=== PATIENT | female | born 1955 | race Caucasian/White ===

== ENCOUNTER → 2017-12-18 | Outpatient (CLI) | payer MEDICARE ==
[~2017-12-18] MED LIST: DENOSUMAB 60 MG/ML 1 ML SYRINGE SQ NR
[2017-12-18 14:48] VITALS: BP 125/87; PULSE 92; RESP 16; TEMP 98.9
== END | disposition home or self-care (01) ==
LOC: PROCWHC3 14:33
PROVIDERS: ATTEND Family Medicine
DX: M81.0 Age-related osteoporosis without current pathological fracture (principal)
CPT/HCPCS: 96372; J0897

== ENCOUNTER → 2019-06-14 | Outpatient (CLI) | payer MEDICARE, OTHER ==
--- NOTE | 2019-06-14 10:44 | CT ---
EXAMINATION TYPE: CT sinus wo con DATE OF EXAM: 06/14/2019 COMPARISON: None HISTORY: Chronic sinusitis. CT DLP: [address] of the paranasal sinuses was performed in the axial and coronal planes. Bone and soft tissue settings are submitted. The paranasal sinuses demonstrate normal aeration and development. The paranasal sinuses are free of mucosal thickening or air fluid level. The osteal meatal units are patent bilaterally. Nasal septum is deviated from right to left. No bony destructive changes are seen within the field of view. IMPRESSION: Nasal septal deviation. Otherwise unremarkable study.
== END ==
LOC: RADCTMAIN 10:15
PROVIDERS: ATTEND Family Medicine
DX: J34.2 Deviated nasal septum (principal)
CPT/HCPCS: 70486

== ENCOUNTER 2020-11-06 10:44 | Inpatient (IN) | payer MEDICARE, OTHER ==
[2020-11-06] MEDS ORDERED: PANTOPRAZOLE 40 MG/10 ML VIAL IVP STA (11:19)
[2020-11-06] MEDS ORDERED: SODIUM CHLORIDE 0.9% 1,000 ML IV STA (11:19)
--- NOTE | 2020-11-06 11:22 | ED ---
General Adult HPI - General Chief complaint: GI Bleed Stated complaint: GI bleed Time Seen by Provider: 11/06/20 11:03 Source: patient, RN notes reviewed Mode of arrival: ambulatory Limitations: no limitations - History of Present Illness Initial comments: Patient is a pleasant 65-year-old female presenting to the emergency Department with complaints of rectal bleeding. Onset of symptoms was a couple of days ago. Patient has had more than 6 or 7 episodes. Occasionally only blood. Occasionally blood mixed with stool. Patient is having some lower abdominal cramping/discomfort that is waxing and waning and severe at times. Discomfort is mild at this time. No nausea vomiting. Patient does not take blood thinners. No history of similar symptoms previously. - Related Data Home Medications Medication Instructions Recorded Confirmed LORazepam [Ativan] 1 mg PO Q8H PRN 05/16/14 11/06/20 Celecoxib [CeleBREX] 200 mg PO DAILY 11/06/20 11/06/20 Escitalopram [Lexapro] 20 mg PO DAILY 11/06/20 11/06/20 Phentermine HCl [Adipex-P] 37.5 mg PO DAILY 11/06/20 11/06/20 traZODone HCL 50 mg PO HS 11/06/20 11/06/20 Allergies Allergy/AdvReac Type Severity Reaction Status Date / Time No Known Allergies Allergy Verified 11/06/20 12:35 Review of Systems ROS Statement: Those systems with pertinent positive or pertinent negative responses have been documented in the HPI. ROS Other: All systems not noted in ROS Statement are negative. Constitutional: Denies: fever Eyes: Denies: eye pain ENT: Denies: ear pain Respiratory: Denies: cough Cardiovascular: Denies: chest pain Endocrine: Denies: fatigue Gastrointestinal: Reports: abdominal pain, hematochezia. Denies: nausea, vomiting Genitourinary: Denies: dysuria Musculoskeletal: Denies: back pain Skin: Denies: rash Neurological: Denies: weakness Past Medical History Additional Past Medical History / Comment(s): chronic neck and back pain History of Any Multi-Drug Resistant Organisms: None Reported Past Surgical History: Section, Hysterectomy Additional Past Surgical History / Comment(s): neck surgeryx2 , L foot, L leg thrombectomy Past Psychological History: Anxiety, Depression Smoking Status: Never smoker Past Alcohol Use History: None Reported Past Drug Use History: None Reported General Exam Limitations: no limitations General appearance: alert, in no apparent distress Head exam: Present: normocephalic Eye exam: Present: normal appearance Neck exam: Present: normal inspection Respiratory exam: Present: normal lung sounds bilaterally Cardiovascular Exam: Present: regular rate, normal rhythm GI/Abdominal exam: Present: soft, tenderness (Moderate tenderness of lower abdomen and epigastric and left upper quadrant), normal bowel sounds. Absent: distended, guarding, rebound, rigid, pulsatile mass Rectal exam: Present: normal inspection. Absent: hemorrhoids Extremities exam: Present: normal inspection Neurological exam: Present: alert Psychiatric exam: Present: normal affect, normal mood Skin exam: Present: normal color Course Vital Signs 11/06/20 11/06/20 10:49 13:32 Temperature 98.1 F Pulse Rate 87 71 Respiratory 16 18 Rate Blood Pressure 141/82 119/71 O2 Sat by Pulse 97 97 Oximetry EKG Findings - EKG Comments: EKG Findings:: Normal sinus rhythm with rate of 79. MN 160. QRS 106. QT 370. QTc 424 per left axis. LVH. Nonspecific T waves. Medical Decision Making - Medical Decision Making Patient reevaluated and updated. Case was discussed with Dr. Vaca, who will admit covering for Dr. Umana. - Lab Data Result diagrams: 11/06/20 11:51 11/06/20 11:51 Lab Results 11/06/20 11/06/20 11/06/20 Range/Units 11:51 11:51 11:51 WBC 15.3 H (3.8-10.6) k/uL RBC 5.13 (3.80-5.40) m/uL Hgb 15.1 (11.4-16.0) gm/dL Hct 44.3 (34.0-46.0) % MCV 86.4 (80.0-100.0) fL MCH 29.5 (25.0-35.0) pg MCHC 34.1 (31.0-37.0) g/dL RDW 13.2 (11.5-15.5) % Plt Count 189 (150-450) k/uL MPV 8.0 Neutrophils % 83 % Lymphocytes % 9 % Monocytes % 6 % Eosinophils % 1 % Basophils % 0 % Neutrophils # 12.7 H (1.3-7.7) k/uL Lymphocytes # 1.4 (1.0-4.8) k/uL Monocytes # 0.9 (0-1.0) k/uL Eosinophils # 0.1 (0-0.7) k/uL Basophils # 0.1 (0-0.2) k/uL PT 10.0 (9.0-12.0) sec INR 0.9 (<1.2) APTT 22.2 (22.0-30.0) sec Sodium (137-145) mmol/L Potassium (3.5-5.1) mmol/L Chloride (98-107) mmol/L Carbon Dioxide (22-30) mmol/L Anion Gap mmol/L BUN (7-17) mg/dL Creatinine (0.52-1.04) mg/dL Est GFR (CKD-EPI)AfAm (>60 ml/min/1.73 sqM) Est GFR (CKD-EPI)NonAf (>60 ml/min/1.73 sqM) Glucose (74-99) mg/dL Calcium (8.4-10.2) mg/dL Total Bilirubin (0.2-1.3) mg/dL AST (14-36) U/L ALT (4-34) U/L Alkaline Phosphatase (38-126) U/L Total Protein (6.3-8.2) g/dL Albumin (3.5-5.0) g/dL Stool Occult Blood Positive H (Negative) 11/06/20 Range/Units 11:51 WBC (3.8-10.6) k/uL RBC (3.80-5.40) m/uL Hgb (11.4-16.0) gm/dL Hct (34.0-46.0) % MCV (80.0-100.0) fL MCH (25.0-35.0) pg MCHC (31.0-37.0) g/dL RDW (11.5-15.5) % Plt Count (150-450) k/uL MPV Neutrophils % % Lymphocytes % % Monocytes % % Eosinophils % % Basophils % % Neutrophils # (1.3-7.7) k/uL Lymphocytes # (1.0-4.8) k/uL Monocytes # (0-1.0) k/uL Eosinophils # (0-0.7) k/uL Basophils # (0-0.2) k/uL PT (9.0-12.0) sec INR (<1.2) APTT (22.0-30.0) sec Sodium 138 (137-145) mmol/L Potassium 3.6 (3.5-5.1) mmol/L Chloride 104 (98-107) mmol/L Carbon Dioxide 26 (22-30) mmol/L Anion Gap 8 mmol/L BUN 17 (7-17) mg/dL Creatinine 0.77 (0.52-1.04) mg/dL Est GFR (CKD-EPI)AfAm >90 (>60 ml/min/1.73 sqM) Est GFR (CKD-EPI)NonAf 80 (>60 ml/min/1.73 sqM) Glucose 125 H (74-99) mg/dL Calcium 9.2 (8.4-10.2) mg/dL Total Bilirubin 0.9 (0.2-1.3) mg/dL AST 22 (14-36) U/L ALT 20 (4-34) U/L Alkaline Phosphatase 91 (38-126) U/L Total Protein 6.4 (6.3-8.2) g/dL Albumin 3.7 (3.5-5.0) g/dL Stool Occult Blood (Negative) - Radiology Data Radiology results: report reviewed (Computed tomography scan concerning for colitis) Disposition Clinical Impression: Lower gastrointestinal hemorrhage, Acute colitis Disposition: ADMITTED IP TO THIS [facility] Is patient prescribed a controlled substance at d/c from ED?: No Referrals: Murali Umana MD [Primary Care Provider] - 1-2 days Decision Time: 14:17
[2020-11-06 12:01] LABS: Basophils # (A) 0.1 k/uL (0-0.2); Basophils % (A) 0 %; Eosinophils # (A) 0.1 k/uL (0-0.7); Eosinophils % (A) 1 %; HCT 44.3 % (34.0-46.0); HGB 15.1 gm/dL (11.4-16.0); Lymphocytes # (A) 1.4 k/uL (1.0-4.8); Lymphocytes % (A) 9 %; MCH 29.5 pg (25.0-35.0); MCHC 34.1 g/dL (31.0-37.0); MCV 86.4 fL (80.0-100.0); Monocytes # (A) 0.9 k/uL (0-1.0); Monocytes % (A) 6 %; Neutrophils # (A) 12.7 k/uL (1.3-7.7); Neutrophils % (A) 83 %; Platelet Count 189 k/uL (150-450); RBC 5.13 m/uL (3.80-5.40); RDW 13.2 % (11.5-15.5); WBC 15.3 k/uL (3.8-10.6)
[2020-11-06 12:14] LABS: ALT 20 U/L (4-34); AST 22 U/L (14-36); African American GFR (CKD) >90 (>60 ml/min/1.73 sqM); Albumin 3.7 g/dL (3.5-5.0); Alkaline Phosphatase 91 U/L (38-126); Anion Gap 8 mmol/L; Blood Urea Nitrogen 17 mg/dL (7-17); Calcium 9.2 mg/dL (8.4-10.2); Carbon Dioxide 26 mmol/L (22-30); Chloride 104 mmol/L (98-107); Glucose 125 mg/dL (74-99); Non-African American GFR(CKD) 80 (>60 ml/min/1.73 sqM); Potassium 3.6 mmol/L (3.5-5.1); Sodium 138 mmol/L (137-145); Total Bilirubin 0.9 mg/dL (0.2-1.3); Total Protein 6.4 g/dL (6.3-8.2)
[2020-11-06 12:36] LABS: INR 0.9 (<1.2); Partial Thromboplastin Time 22.2 sec (22.0-30.0)
--- NOTE | 2020-11-06 13:11 | CT ---
EXAMINATION TYPE: CT abdomen pelvis w con DATE OF EXAM: 11/06/2020 COMPARISON: 08/30/2009 HISTORY: Lower abdominal pain with bright red rectal bleeding. CT DLP: 912.5 mGycm CONTRAST: CT scan of the abdomen and pelvis is performed without Oral Contrast and with IV Contrast, patient in jected with 100 mL of Isovue 300. FINDINGS: LUNG BASES-: No visible nodule. No infiltrate. LIVER/GB: No calcified gallstones. No space occupying hepatic lesion. Biliary tree is of normal ca liber. PANCREAS: No inflammation. No distinct mass. SPLEEN: No splenic enlargement. No lesion seen. ADRENALS: No nodule. No thickening. KIDNEYS/BLADDER: No hydronephrosis. No nephrolithiasis. No distinct renal mass. Urinary bladder g rossly unremarkable. BOWEL: There is diffuse wall thickening involving the colon from the distal transverse colon through the sigmoid colon which may reflect nonspecific colitis such as infectious, inflammatory or ischemic etiologies. No evidence for perforation or free air. Mild small bowel ileus noted. The remainder of t he colon is of normal caliber. Nonvisualization of the appendix. Postoperative changes of gastric ban ding procedure. GENITAL ORGANS: No gross abnormality. LYMPH NODES: No greater than 1cm abdominal or pelvic lymph nodes are appreciated. AORTA: No significant abnormality. OSSEOUS STRUCTURES: No significant abnormality is seen. OTHER: No significant additional abnormality is seen. IMPRESSION: 1. Nonspecific colitis.
[2020-11-06] MEDS ORDERED: NALOXONE 0.4 MG/ML 1 ML VIAL IV PRN (14:18)
[2020-11-06] MEDS ORDERED: AMPICILLIN-SULBACTAM 3 GM in SODIUM CHLORIDE 0.9% 100 ML IVPB STA (14:20)
[2020-11-06] MEDS ORDERED: LORazepam 1 MG TAB PO PRN (14:21)
[2020-11-06] MEDS ORDERED: SODIUM CHLORIDE 0.9% 1,000 ML IV SCH (14:30)
--- NOTE | 2020-11-06 14:31 | P.HPIM ---
History of Present Illness H&P Date: 11/06/20 Chief Complaint: Rectal bleeding This is a 65-year-old female with past medical history noted below that presented to the emergency room with bloody bowel movement. Patient said that since Friday she started having blood with her stool is mostly bright red blood mixed with blood clots. She is also having abdominal pain mostly in the lower abdomen on both the left and right sides. She denies any fevers or chills. She said that she was having only 1 bowel movement per day that is mostly bloody. Patient said that usually she had a turbinate constipation and diarrhea which is normal for her. She was seen today by her PCP who advised her to go to the emergency room for further evaluation. She denies any history of bleeding in the past. Reports last colonoscopy approximately 5 years ago with 2 polyps that were removed. Denies alcohol use. Uses Motrin once or twice a week as needed for pain. Patient was evaluated in the ER and was found to be hemodynamically stable. Hemoglobin around 15. She will be admitted to the hospital for further evaluation. Review of Systems Review of system: 14 points review of systems were obtained and were negative except to what were mentioned in the HPI. Past Medical History Additional Past Medical History / Comment(s): chronic neck and back pain History of Any Multi-Drug Resistant Organisms: None Reported Past Surgical History: Section, Hysterectomy Additional Past Surgical History / Comment(s): neck surgeryx2 , L foot, L leg thrombectomy Past Psychological History: Anxiety, Depression Smoking Status: Never smoker Past Alcohol Use History: None Reported Past Drug Use History: None Reported Medications and Allergies Home Medications Medication Instructions Recorded Confirmed Type LORazepam [Ativan] 1 mg PO Q8H PRN 05/16/14 11/06/20 History Celecoxib [CeleBREX] 200 mg PO DAILY 11/06/20 11/06/20 History Escitalopram [Lexapro] 20 mg PO DAILY 11/06/20 11/06/20 History Phentermine HCl [Adipex-P] 37.5 mg PO DAILY 11/06/20 11/06/20 History traZODone HCL 50 mg PO HS 11/06/20 11/06/20 History Allergies Allergy/AdvReac Type Severity Reaction Status Date / Time No Known Allergies Allergy Verified 11/06/20 12:35 Physical Exam Vitals: Vital Signs Temp Pulse Resp BP Pulse Ox 11/06/20 13:32 71 18 119/71 97 11/06/20 10:49 98.1 F 87 16 141/82 97 Intake and Output 11/05/20 11/06/20 11/06/20 22:59 06:59 14:59 Other: Weight 63.503 kg General: The patient is awake and alert, in no distress Eye: there is normal conjunctiva bilaterally. Neck: The neck is supple, there is no JVD. Cardiovascular: Normal S1-S2, no S3-S4, no murmurs. Respiratory: Lungs clear to auscultation bilaterally Gastrointestinal: Abdomen is soft, there is moderate tenderness to palpation in the lower abdomen both left and right Musculoskeletal: There is no pedal edema. Neurological:. Speech is normal. Skin: Skin is warm and dry Results CBC & Chem 7: 11/06/20 11:51 11/06/20 11:51 Labs: Abnormal Lab Results - Last 24 Hours (Table) 11/06/20 11/06/20 11/06/20 Range/Units 11:51 11:51 11:51 WBC 15.3 H (3.8-10.6) k/uL Neutrophils # 12.7 H (1.3-7.7) k/uL Glucose 125 H (74-99) mg/dL Stool Occult Blood Positive H (Negative) Assessment and Plan Assessment: This is a 65-year-old female with past medical history noted below that presented to the emergency room with bloody bowel movement. Patient was evaluated in the ER and admitted to the hospital for further management of her medical problems noted below. 1. Acute colitis: Suspect infectious. Noted on computed tomography scan of the abdomen involving the distal transversethrough sigmoid. I would start patient on Cipro and Flagyl IV. Stat lactic acid ordered to rule out ischemia. 2. Rectal bleed, secondary to #1. This likely upper GI bleed. GI consulted for further evaluation. Last colonoscopy 5 years ago reported normal. Continue Protonix 40 mg daily. 3. History of depression and anxiety: Continue home medication 4. DVT prophylaxis with SCD 5. Patient is full code Today, I reviewed her medication list and lab work results. Hemoglobin of 15 appears stable. Repeat CBC at 2100 and in the morning. Awaiting GI evaluation. Allow liquid diet for now.
--- NOTE | 2020-11-06 14:33 | P.PN ---
Progress Note - Text Progress Note Date: 11/06/20 Advanced Care Planning Active Diagnosis: Lower GI bleed Persons present: Patient and her Summary: Discussed the patient's goals of care in detail. Patient and her informed me that they have a will but they are not sure if they want CPR. Patient told me that she is okay to get CPR trying to revive her but would not want to be on a ventilator. We had a lengthy discussion about the meaning of resuscitation involving both cardiac and pulmonary resuscitation and that any CPR efforts without securing airway would be unsuccessful. They had a lot of different questions and I answered and eventually they decided that patient will want to be full code for now and if they change their mind to DO NOT RESUSCITATE they will let us know. Time spent: Total time spent face to face in education and discussion directly related to advanced care plannin minutes
[2020-11-06] MEDS ORDERED: CIPROFLOXACIN/DEXTROSE PMX 400 MG in DEXTROSE/WATER 1 200ML.BAG IVPB STA (14:34)
[2020-11-06] MEDS ORDERED: MORPHINE SULFATE 2 MG/ML SYRINGE IVP PRN (14:36)
[2020-11-06] MEDS: metroNIDAZOLE-NS PMX 500 MG in SALINE 1 100ML.BAG IVPB SCH ×2 (17:16→21:29)
[2020-11-06] MEDS ORDERED: AMPICILLIN-SULBACTAM 1.5 GM in SODIUM CHLORIDE 0.9% 50 ML IVPB SCH (18:00)
[2020-11-06] MEDS: ACETAMINOPHEN TAB 325 MG TAB PO PRN (21:28)
[2020-11-06] MEDS: traZODone HCL 50 MG TAB PO SCH (21:29)
[2020-11-06 21:34] LABS: HCT 40.5 % (34.0-46.0); HGB 13.9 gm/dL (11.4-16.0); MCH 29.7 pg (25.0-35.0); MCHC 34.3 g/dL (31.0-37.0); MCV 86.8 fL (80.0-100.0); Mean Platelet Volume 7.5; Platelet Count 159 k/uL (150-450); RBC 4.66 m/uL (3.80-5.40); RDW 13.3 % (11.5-15.5); WBC 14.4 k/uL (3.8-10.6)
[2020-11-06] MEDS: CIPROFLOXACIN/DEXTROSE PMX 400 MG in DEXTROSE/WATER 1 200ML.BAG IVPB SCH (23:25)
[2020-11-07] MEDS: PANTOPRAZOLE 40 MG/10 ML VIAL IV SCH (07:40)
[2020-11-07] MEDS: ESCITALOPRAM 20 MG TAB PO SCH (07:41)
[2020-11-07] MEDS: metroNIDAZOLE-NS PMX 500 MG in SALINE 1 100ML.BAG IVPB SCH ×3 (07:41→21:28)
[2020-11-07] MEDS: CIPROFLOXACIN/DEXTROSE PMX 400 MG in DEXTROSE/WATER 1 200ML.BAG IVPB SCH ×2 (07:41→19:45)
[2020-11-07 11:47] LABS: Basophils # (A) 0.04 X 10*3/uL (0.00-0.10); Basophils % (A) 0.4 %; Eosinophils # (A) 0.19 X 10*3/uL (0.04-0.35); Eosinophils % (A) 1.7 %; HCT 42.9 % (37.2-46.3); HGB 13.6 g/dL (12.0-15.0); Lymphocytes # (A) 1.61 X 10*3/uL (0.90-5.00); Lymphocytes % (A) 14.5 %; MCH 28.9 pg (27.0-32.0); MCHC 31.7 g/dL (32.0-37.0); MCV 91.1 fL (80.0-97.0); Mean Platelet Volume 11.2 fL (9.5-12.2); Monocytes # (A) 0.75 X 10*3/uL (0.20-1.00); Monocytes % (A) 6.8 %; Neutrophils # (A) 8.45 X 10*3/uL (1.80-7.70); Neutrophils % (A) 76.2 %; Platelet Count 177 X 10*3/uL (140-440); RBC 4.71 X 10*6/uL (4.10-5.20); RDW 13.2 % (11.5-14.5); WBC 11.08 X 10*3/uL (4.50-10.00)
[2020-11-07 12:21] LABS: African American GFR (CKD) 88.4 (60.0-200.0); Anion Gap 6.5 mmol/L (4.00-12.00); BUN/Creat Ratio 11.25 Ratio (12.00-20.00); Calcium 8.4 mg/dL (8.7-10.3); Carbon Dioxide 26.5 mmol/L (21.6-31.8); Non-African American GFR(CKD) 76.3 (60.0-200.0); Potassium 4.2 mmol/L (3.5-5.5)
--- NOTE | 2020-11-07 16:04 | P.CONS ---
History of Present Illness - Reason for Consult Consult date: 11/07/20 GI bleed Requesting physician: Nelda Steinberg - Chief Complaint Rectal bleeding, abdominal pain - History of Present Illness This is a pleasant 65-year-old female who came into the emergency department with complaints of rectal bleeding and abdominal cramping that began Friday. She states initially she felt constipated and then following she had diarrhea that was mixed with blood. Sometimes it would be just blood. She states she would have 1-2 bowel movements a day. Also if she went to urinate and would pass gas it would come out as bright red blood and is associated with lower abdominal cramping. She had one episode today when she went to urinate and pass some gas and she had rectal bleeding, however she now notes that it is a darker red with some small clots. She denies any previous history of Crohn's or colitis. Denies any history of acute colitis in the past for similar episodes to this. She states she had a colonoscopy with Dr. Scott around 5 years ago with noted polyps. Past medical history includes chronic back pain, gastric band approximately [address] Baig,anxiety, and depression. Does take Celebrex for her back pain. She had a CT of the abdomen and pelvis that showed nonspecific colitis with diffuse wall thickening of the distal transverse colon through the sigmoid colon. There was mild small bowel ileus. Postop gastric band procedure. She has continued lower abdominal cramping, denies any nausea or vomiting. She denies any chest pain or shortness of breath. Afebrile, denies any sick contacts. Admitting labs WBC 14.4, hemoglobin 13.9, hematocrit 40.1, platelets 159,000, INR 1.0. Stool positive for occult blood, total bilirubin 0.9, alkaline phosphatase 91, AST 22, ALT 20. She is currently being treated with IV Cipro and Flagyl Review of Systems REVIEW OF SYSTEMS: CARDIOPULMONARY: No chest pain or shortness of breath. Gastrointestinal: Low abdominal cramping.. No nausea or vomiting. No hematemesis, coffee-ground emesis. Bright red blood per rectum. Small clots. GENITOURINARY: No dysuria or hematuria. MUSCULOSKELETAL: Reports normal range of motion., Joint pain. SKIN: No rashes. No jaundice. ENDOCRINE: No chills, fevers. No excessive weight gain or loss. No polydipsia or polyuria. PSYCHIATRIC: Unremarkable. NEUROLOGY: No change in mental status. Denies dizziness, headache. ENT: Vision unremarkable. CONSTITUTIONAL: No recent weight loss. No fever, chills, night sweats. Past Medical History Past Medical History: Deep Vein Thrombosis (DVT) Additional Past Medical History / Comment(s): chronic neck and back pain DVT (2012) History of Any Multi-Drug Resistant Organisms: None Reported Past Surgical History: Section, Hysterectomy Additional Past Surgical History / Comment(s): neck surgeryx2 , L foot, L leg thrombectomy, Lap Band Past Psychological History: Anxiety, Depression Smoking Status: Never smoker Past Alcohol Use History: None Reported Past Drug Use History: None Reported Medications and Allergies Home Medications Medication Instructions Recorded Confirmed Type LORazepam [Ativan] 1 mg PO Q8H PRN 05/16/14 11/06/20 History Celecoxib [CeleBREX] 200 mg PO DAILY 11/06/20 11/06/20 History Escitalopram [Lexapro] 20 mg PO DAILY 11/06/20 11/06/20 History Phentermine HCl [Adipex-P] 37.5 mg PO DAILY 11/06/20 11/06/20 History traZODone HCL 50 mg PO HS 11/06/20 11/06/20 History Allergies Allergy/AdvReac Type Severity Reaction Status Date / Time No Known Allergies Allergy Verified 11/06/20 12:35 Physical Exam Vitals: Vital Signs Temp Pulse Pulse Resp BP BP Pulse Ox 11/07/20 07:58 97.6 F 70 16 130/71 93 L 11/07/20 00:42 98.7 F 67 16 107/53 92 L 11/06/20 19:08 99.2 F 61 14 110/68 95 11/06/20 17:37 99.5 F 63 16 119/72 94 L 11/06/20 13:32 71 18 119/71 97 Intake and Output 11/06/20 11/07/20 11/07/20 22:59 06:59 14:59 Other: Voiding Method Toilet Weight 63.503 kg General appearance: The patient is alert, oriented, appears in no acute distress. HET: Head is normocephalic and atraumatic. Oropharynx is clear without lesions. Neck: Supple without lymphadenopathy. Trachea midline. Heart: S1 S2. Regular rate and rhythm. Lungs: Clear to auscultation Abdomen: Soft, low abdominal tenderness, left greater than right, nondistended with bowel sounds. No peritoneal signs. No palpable organomegaly or masses. Extremities: Normal skin color and turgor. No pedal edema. Neurological: Alert, oriented 3. Results CBC & Chem 7: 11/07/20 07:01 11/07/20 07:01 Labs: Abnormal Lab Results - Last 24 Hours (Table) 11/06/20 11/07/20 11/07/20 Range/Units 21:25 07:01 07:01 WBC 14.4 H 11.08 H (3.8-10.6) k/uL MCHC 31.7 L (32.0-37.0) g/dL Neutrophils # 8.45 H (1.80-7.70) X 10*3/uL BUN/Creatinine Ratio 11.25 L (12.00-20.00) Ratio Glucose 127 H (70-110) mg/dL Calcium 8.4 L (8.7-10.3) mg/dL CT scan - abdomen: report reviewed (Diffuse wall thickening involving the colon from the distal transverse colon through the sigmoid colon which may reflect no nspecific colitis such as infectious, inflammatory, or ischemic etiologies. No evidence for perforation or free air. Mild small bowel ileus noted. Remainder of colon is of no) Assessment and Plan (1) Acute colitis Narrative/Plan: CT 5-year-old female who presented to the emergency department with complaints of bright red rectal bleeding with abdominal cramping that began on Friday. She was having 1-2 episodes of bright red blood mixed with stool, and or just passing blood. She has no previous history of similar episodes or symptoms. No history of Crohn's or ulcerative colitis. She denies any anticoagulation. She had a prior colonoscopy done by Dr. Scott approximately 5 years ago which she states was significant for colon polyps. CT of the abdomen and pelvis show nonspecific colitis and diffuse wall thickening of the distal transverse colon through the sigmoid colon. Mild small bowel ileus. The patient does use Celebrex for chronic back pain. No plans for endoscopic evaluation at this time we'll continue with IV Cipro and Flagyl. Possible etiologies include inflammatory versus infectious versus ischemic colitis. Will recommend outpatient follow-up colonoscopy in 4-6 weeks. Current Visit: Yes Status: Acute Code(s): K52.9 - NONINFECTIVE GASTROENTERITIS AND COLITIS, UNSPECIFIED SNOMED Code(s): 83896099 (2) Lower gastrointestinal hemorrhage Current Visit: Yes Status: Acute Code(s): K92.2 - GASTROINTESTINAL H EMORRHAGE, UNSPECIFIED SNOMED Code(s): 21345372 (3) Abdominal pain Current Visit: Yes Status: Acute Code(s): R10.9 - UNSPECIFIED ABDOMINAL PAIN SNOMED Code(s): 34631841 Plan: 1. Symptomatic and supportive care 2. Continue IV antibiotics as ordered 3. Nothing by mouth today, will advance to clear liquid diet tomorrow if symptoms improve 4. Daily CBC, transfuse for hemoglobin less than 7 5. Continue IV hydration with pain medications as needed 6. No plans on endoscopic evaluation at this time, discussed with patient recommend outpatient colonoscopy to follow-up in 4-6 weeks. Thank you for this consultation, we will continue to follow Dr. Mcknight I agree with the dictator's note, documented as a scribe by Marianna Rodríguez.
--- NOTE | 2020-11-07 16:14 | P.PN ---
Subjective Progress Note Date: 11/07/20 Patient was sleepy today when I saw her. She is feeling better. No acute events overnight reported by nursing staff. Objective - Vital Signs Vital signs: Vital Signs Temp 98.1 F 11/07/20 14:00 Pulse 58 L 11/07/20 14:00 Resp 16 11/07/20 14:00 BP 132/77 11/07/20 14:00 Pulse Ox 95 11/07/20 14:00 Intake & Output 11/06/20 11/07/20 11/07/20 18:59 06:59 18:59 Weight 63.503 kg Other: Voiding Method Toilet - Exam General: The patient is awake and alert, in no distress Eye: there is normal conjunctiva bilaterally. Neck: The neck is supple, there is no JVD. Cardiovascular: Normal S1-S2, no S3-S4, no murmurs. Respiratory: Lungs clear to auscultation bilaterally Gastrointestinal: Abdomen is soft, nontender Musculoskeletal: There is no pedal edema. Neurological:. Speech is normal. Skin: Skin is warm and dry - Labs CBC & Chem 7: 11/07/20 07:01 11/07/20 07:01 Labs: Abnormal Lab Results - Last 24 Hours (Table) 11/06/20 11/07/20 11/07/20 Range/Units 21:25 07:01 07:01 WBC 14.4 H 11.08 H (3.8-10.6) k/uL MCHC 31.7 L (32.0-37.0) g/dL Neutrophils # 8.45 H (1.80-7.70) X 10*3/uL BUN/Creatinine Ratio 11.25 L (12.00-20.00) Ratio Glucose 127 H (70-110) mg/dL Calcium 8.4 L (8.7-10.3) mg/dL Assessment and Plan Assessment: This is a 65-year-old female with past medical history noted below that presented to the emergency room with bloody bowel movement. Patient was evaluated in the ER and admitted to the hospital for further management of her medical problems noted below. 1. Acute colitis: Suspect infectious. Noted on computed tomography scan of the abdomen involving the distal transversethrough sigmoid. I started patient on Cipro and Flagyl IV. Lactic acid is normal. 2. Rectal bleed, secondary to #1. Now resolved. Seen and evaluated by GI, appreciate recommendations. 3. History of depression and anxiety: Continue home medication 4. DVT prophylaxis with SCD 5. Patient is full code Today, I reviewed her medication list and lab work results. Repeat lab work in the morning. Anticipate discharge home tomorrow.
[2020-11-07] MEDS: ACETAMINOPHEN TAB 325 MG TAB PO PRN (19:45)
[2020-11-07] MEDS: traZODone HCL 50 MG TAB PO SCH (19:46)
[2020-11-08] MEDS: ACETAMINOPHEN TAB 325 MG TAB PO PRN ×2 (03:38→09:54)
[2020-11-08 07:28] LABS: Basophils % (A) 0 %; Eosinophils # (A) 0.2 k/uL (0-0.7); Eosinophils % (A) 2 %; HCT 40.8 % (34.0-46.0); HGB 13.5 gm/dL (11.4-16.0); Lymphocytes # (A) 1.1 k/uL (1.0-4.8); Lymphocytes % (A) 12 %; MCH 29.1 pg (25.0-35.0); MCHC 33.1 g/dL (31.0-37.0); MCV 87.8 fL (80.0-100.0); Monocytes # (A) 0.5 k/uL (0-1.0); Monocytes % (A) 6 %; Neutrophils # (A) 7.3 k/uL (1.3-7.7); Neutrophils % (A) 79 %; Platelet Count 172 k/uL (150-450); RBC 4.65 m/uL (3.80-5.40); RDW 13.3 % (11.5-15.5); WBC 9.2 k/uL (3.8-10.6)
[2020-11-08] MEDS: ESCITALOPRAM 20 MG TAB PO SCH (08:29)
[2020-11-08] MEDS: PANTOPRAZOLE 40 MG/10 ML VIAL IV SCH (08:29)
[2020-11-08] MEDS: CIPROFLOXACIN/DEXTROSE PMX 400 MG in DEXTROSE/WATER 1 200ML.BAG IVPB SCH ×2 (08:29→21:47)
--- NOTE | 2020-11-08 08:50 | P.PN ---
Subjective Progress Note Date: 11/08/20 Patient is doing fairly well today. She said that her abdominal pain is improving compared to yesterday but is not completely gone yet. She is rating her pain as 4 out of 10 in severity. She said that she had few droplets of blood this morning without having a bowel movement and yesterday few droplets of blood mixed with her bowel movement. She is tolerating liquid diet with no difficulty. Objective - Vital Signs Vital signs: Vital Signs Temp 98.3 F 11/08/20 07:49 Pulse 57 L 11/08/20 07:49 Resp 16 11/08/20 07:49 BP 148/83 11/08/20 07:49 Pulse Ox 93 L 11/08/20 07:49 Intake & Output 11/07/20 11/08/20 11/08/20 18:59 06:59 18:59 Other: Voiding Method Toilet # Voids 3 - Exam General: The patient is awake and alert, in no distress Eye: there is normal conjunctiva bilaterally. Neck: The neck is supple, there is no JVD. Cardiovascular: Normal S1-S2, no S3-S4, no murmurs. Respiratory: Lungs clear to auscultation bilaterally Gastrointestinal: Abdomen is soft, there is mild tenderness to palpation in the lower abdomen Musculoskeletal: There is no pedal edema. Neurological:. Speech is normal. Skin: Skin is warm and dry - Labs CBC & Chem 7: 11/08/20 06:36 11/07/20 07:01 Labs: Abnormal Lab Results - Last 24 Hours (Table) 11/07/20 11/07/20 Range/Units 07:01 07:01 WBC 11.08 H (4.50-10.00) X 10*3/uL MCHC 31.7 L (32.0-37.0) g/dL Neutrophils # 8.45 H (1.80-7.70) X 10*3/uL BUN/Creatinine Ratio 11.25 L (12.00-20.00) Ratio Glucose 127 H (70-110) mg/dL Calcium 8.4 L (8.7-10.3) mg/dL Microbiology - Last 24 Hours (Table) 11/06/20 14:58 Blood Culture - Preliminary Blood No Growth after 24 hours Assessment and Plan Assessment: This is a 65-year-old female with past medical history noted below that presented to the emergency room with bloody bowel movement. Patient was evaluated in the ER and admitted to the hospital for further management of her medical problems noted below. 1. Acute colitis: Suspect infectious. Noted on computed tomography scan of the abdomen involving the distal transversethrough sigmoid. I started patient on Cipro and Flagyl IV. Lactic acid is normal. 2. Rectal bleed, secondary to #1. Seen and evaluated by GI, appreciate recommendations. 3. History of depression and anxiety: Continue home medication 4. DVT prophylaxis with SCD 5. Patient is full code Today, I reviewed her medication list and lab work results. Repeat lab work in the morning. Currently on liquid diet. Diet instruction per GI recommendations. Discharge planning pending
[2020-11-08] MEDS: metroNIDAZOLE-NS PMX 500 MG in SALINE 1 100ML.BAG IVPB SCH ×2 (09:51→16:46)
[2020-11-08] MEDS: ONDANSETRON 4 MG/2 ML VIAL IVP PRN ×2 (09:54→17:38)
--- NOTE | 2020-11-08 12:03 | P.PN ---
Subjective Progress Note Date: 11/08/20 Principal diagnosis: Acute colitis The patient is seen and examined sitting up in bed. She states her abdominal pain has improved. She said she still had a small bowel movement yesterday with a maximum bread and darker red blood. Abdominal cramping has improved. She had some mild nausea but no vomiting. Believes it's related to being hungry. Hemoglobin remained stable at 13.5. Objective - Vital Signs Vital signs: Vital Signs Temp 98.3 F 11/08/20 07:49 Pulse 57 L 11/08/20 07:49 Resp 16 11/08/20 07:49 BP 148/83 11/08/20 07:49 Pulse Ox 93 L 11/08/20 07:49 Intake & Output 11/07/20 11/08/20 11/08/20 18:59 06:59 18:59 Other: Voiding Method Toilet # Voids 3 # Bowel Movements 1 - Exam General appearance: The patient is alert, oriented, appears in no acute distress. HET: Head is normocephalic and atraumatic. Conjunctiva pink. Sclera anicteric. Neck: Supple without lymphadenopathy. Abdomen: Soft, mild lower tenderness, nondistended with bowel sounds. No guarding or rigidity. Extremities: Normal skin color and turgor. No pedal edema Skin: No rashes, no jaundice Neurological: No focal deficits. Alert and oriented 3. - Labs CBC & Chem 7: 11/08/20 06:36 11/07/20 07:01 Labs: Abnormal Lab Results - Last 24 Hours (Table) 11/07/20 11/07/20 Range/Units 07:01 07:01 WBC 11.08 H (4.50-10.00) X 10*3/uL MCHC 31.7 L (32.0-37.0) g/dL Neutrophils # 8.45 H (1.80-7.70) X 10*3/uL BUN/Creatinine Ratio 11.25 L (12.00-20.00) Ratio Glucose 127 H (70-110) mg/dL Calcium 8.4 L (8.7-10.3) mg/dL Microbiology - Last 24 Hours (Table) 11/06/20 14:58 Blood Culture - Preliminary Blood No Growth after 24 hours Assessment and Plan (1) Acute colitis Narrative/Plan: CT 5-year-old female who presented to the emergency department with complaints of bright red rectal bleeding with abdominal cramping that began on Friday. She was having 1-2 episodes of bright red blood mixed with stool, and or just passing blood. She has no previous history of similar episodes or symptoms. No history of Crohn's or ulcerative colitis. She denies any anticoagulation. She had a prior colonoscopy done by Dr. Scott approximately 5 years ago which she states was significant for colon polyps. CT of the abdomen and pelvis show nonspecific colitis and diffuse wall thickening of the distal transverse colon through the sigmoid colon. Mild small bowel ileus. The patient does use Celebrex for chronic back pain. No plans for endoscopic evaluation at this time we'll continue with IV Cipro and Flagyl. Possible etiologies include inflammatory versus infectious versus ischemic colitis. Will recommend outpatient follow-up colonoscopy in 4-6 weeks. Current Visit: Yes Status: Acute Code(s): K52.9 - NONINFECTIVE GASTRO ENTERITIS AND COLITIS, UNSPECIFIED SNOMED Code(s): 28310342 (2) Lower gastrointestinal hemorrhage Current Visit: Yes Status: Acute Code(s): K92.2 - GASTROINTESTINAL HEMORRHAGE, UNSPECIFIED SNOMED Code(s): 77994263 (3) Abdominal pain Current Visit: Yes Status: Acute Code(s): R10.9 - UNSPECIFIED ABDOMINAL PAIN SNOMED Code(s): 11955594 Plan: 1. Symptomatic and supportive care 2. Continue IV antibiotics as ordered 3. Advance to full liquid diet 4. Daily CBC, transfuse for hemoglobin less than 7 5. Continue pain medications as needed 6. No plans on endoscopic evaluation at this time, discussed with patient recommend outpatient colonoscopy to follow-up in 4-6 weeks. Thank you for this consultation, we will continue to follow Dr. Mcknight I agree with the dictator's note, documented as a scribe by Marianna Rodríguez.
[2020-11-08] MEDS: traZODone HCL 50 MG TAB PO SCH (21:47)
[2020-11-09] MEDS: metroNIDAZOLE-NS PMX 500 MG in SALINE 1 100ML.BAG IVPB SCH ×2 (00:13→08:15)
[2020-11-09] MEDS: ESCITALOPRAM 20 MG TAB PO SCH (08:15)
[2020-11-09] MEDS: CIPROFLOXACIN/DEXTROSE PMX 400 MG in DEXTROSE/WATER 1 200ML.BAG IVPB SCH (08:15)
[2020-11-09] MEDS: PANTOPRAZOLE 40 MG/10 ML VIAL IV SCH (08:15)
[2020-11-09 08:31] VITALS: BP 126/72; PULSE 60; RESP 12; TEMP 98.2
[2020-11-09 09:09] LABS: Basophils % (A) 0 %; Eosinophils # (A) 0.2 k/uL (0-0.7); Eosinophils % (A) 3 %; HCT 41.8 % (34.0-46.0); HGB 13.2 gm/dL (11.4-16.0); Lymphocytes # (A) 0.6 k/uL (1.0-4.8); Lymphocytes % (A) 11 %; MCHC 31.7 g/dL (31.0-37.0); MCV 88.4 fL (80.0-100.0); Mean Platelet Volume 8.1; Monocytes # (A) 0.3 k/uL (0-1.0); Monocytes % (A) 5 %; Neutrophils # (A) 4.5 k/uL (1.3-7.7); Neutrophils % (A) 80 %; Platelet Count 166 k/uL (150-450); RBC 4.73 m/uL (3.80-5.40); RDW 13.5 % (11.5-15.5); WBC 5.7 k/uL (3.8-10.6)
[2020-11-09 09:24] LABS: African American GFR (CKD) >90 (>60 ml/min/1.73 sqM); Anion Gap 3 mmol/L; Blood Urea Nitrogen 9 mg/dL (7-17); Calcium 8.5 mg/dL (8.4-10.2); Carbon Dioxide 29 mmol/L (22-30); Chloride 107 mmol/L (98-107); Glucose 163 mg/dL (74-99); Non-African American GFR(CKD) 82 (>60 ml/min/1.73 sqM); Potassium 3.8 mmol/L (3.5-5.1); Sodium 139 mmol/L (137-145)
--- NOTE | 2020-11-09 10:13 | P.DS ---
Providers Date of admission: 11/06/20 14:18 Expected date of discharge: 11/09/20 Attending physician: Nelda Steinberg Consults: 11/06/20 14:20 Consult Physician Routine Consulting Provider: Araceli Franco Consult Reason/Comments: GI bleed Do you want consulting provider notified?: Yes Primary care physician: [facility] Course: This is a 65-year-old female with past medical history noted below that presented to the emergency room with bloody bowel movement. Patient was evaluated in the ER and admitted to the hospital for further management of her medical problems noted below. 1. Acute colitis: Suspect infectious. Noted on computed tomography scan of the abdomen involving the distal transversethrough sigmoid. I started patient on Cipro and Flagyl IV. Lactic acid is normal. Patient was seen and evaluated by GI. Her diet was advanced gradually. Plan for colonoscopy in 4-6 weeks. Patient will finish antibiotic course with Flagyl and Cipro for 10 days. 2. Rectal bleed, secondary to #1. Now resolved 3. History of depression and anxiety: Continue home medication Patient will be discharged home in a stable condition. She was able to tolerate regular diet with no difficulty. For further details about this hospitalization please refer to the electronic chart. Patient Condition at Discharge: Stable Plan - Discharge Summary Discharge Rx Participant: Yes New Discharge Prescriptions: New Ciprofloxacin HCl [Cipro] 500 mg PO Q12H 10 Days #20 tab metroNIDAZOLE [Flagyl] 500 mg PO Q8HR 10 Days #30 tab Continue LORazepam [Ativan] 1 mg PO Q8H PRN PRN Reason: Anxiety traZODone HCL 50 mg PO HS Escitalopram [Lexapro] 20 mg PO DAILY Celecoxib [CeleBREX] 200 mg PO DAILY Discontinued Phentermine HCl [Adipex-P] 37.5 mg PO DAILY Discharge Medication List LORazepam [Ativan] 1 mg PO Q8H PRN 05/16/14 [History] Celecoxib [CeleBREX] 200 mg PO DAILY 11/06/20 [History] Escitalopram [Lexapro] 20 mg PO DAILY 11/06/20 [History] traZODone HCL 50 mg PO HS 11/06/20 [History] Ciprofloxacin HCl [Cipro] 500 mg PO Q12H 10 Days #20 tab 11/09/20 [Rx] metroNIDAZOLE [Flagyl] 500 mg PO Q8HR 10 Days #30 tab 05/13/21 [Rx] Follow up Appointment(s)/Referral(s): Murali Umana MD [Primary Care Provider] - 1-2 days Noble Mcknight MD [STAFF PHYSICIAN] - 4 Weeks Discharge Disposition: HOME SELF-CARE
== END 2020-11-09 11:22 | disposition home or self-care (01) | DRG 392 ==
LOC: EC 10:44 → 4SSUR 14:18
PROVIDERS: ADMIT Internal Medicine; ATTEND Internal Medicine
DX: A09 Infectious gastroenteritis and colitis, unspecified (principal); K56.7 Ileus, unspecified; F32.9 Major depressive disorder, single episode, unspecified; F41.9 Anxiety disorder, unspecified; K59.00 Constipation, unspecified; Z20.822 Contact with and (suspected) exposure to COVID-19; G89.29 Other chronic pain; M54.2 Cervicalgia; M54.9 Dorsalgia, unspecified; Z86.010 Personal history of colon polyps; Z79.1 Long term (current) use of non-steroidal anti-inflammatories (NSAID); Z79.899 Other long term (current) drug therapy; Z86.718 Personal history of other venous thrombosis and embolism; Z90.710 Acquired absence of both cervix and uterus; Z98.84 Bariatric surgery status; Z87.891 Personal history of nicotine dependence
CPT/HCPCS: 36415; 74177; 80048; 80053; 82272; 83605; 85025; 85027; 85610; 85730; 87040; 87636; 93005; 96361; 96374; 99285

== ENCOUNTER 2020-12-11 09:49 | Emergency (ER) | payer MEDICARE, OTHER ==
[2020-12-11 10:06] VITALS: BP 142/89; PULSE 76; RESP 18; TEMP 98
--- NOTE | 2020-12-11 10:18 | ED ---
Neck Injury/Pain HPI - General Chief Complaint: Neck Pain/Injury Stated Complaint: rt arm pain Time Seen by Provider: 12/11/20 10:06 Mode of arrival: ambulatory Limitations: no limitations - History of Present Illness Initial Comments: 65-year-old female presents emergency department with a chief complaint of right arm numbness tingling and neck pain. States in 2006 she's underwent cervical fusion of C3 through C6 by Dr. Torres. States she has been relatively asymptomatic until the last 2 months when she developed some paresthesias in the right upper extremity with pain along the dorsal aspect of her arm. States she is also developed paresthesias along the same region radiating down along the ulnar aspect to the fourth and fifth digit. She also reports limited range of motion with right rotation of her neck. States she is attempted physical therapy for the past 2 weeks with no significant improvement in symptoms. States she saw her primary care physician who ordered an MRI but she is not able to get in until December. States she has been taking aspirin and ibuprofen for the pain with no significant prominence symptoms. She also underwent a course of steroids with no significant pulmonary symptoms. She denies any headaches visual changes or any weakness or paresthesias in her right lower extremity. Denies any chest pain or shortness of breath. Denies any fevers or chills. - Related Data Home Medications Medication Instructions Recorded Confirmed LORazepam [Ativan] 1 mg PO Q8H PRN 05/16/14 12/11/20 Celecoxib [CeleBREX] 200 mg PO DAILY 11/06/20 12/11/20 Escitalopram [Lexapro] 20 mg PO DAILY 11/06/20 12/11/20 traZODone HCL 50 mg PO HS 11/06/20 12/11/20 HYDROcodone/APAP 7.5-325MG [[place] 1 tab PO Q6H PRN 12/11/20 12/11/20 7.5-325] Allergies Allergy/AdvReac Type Severity Reaction Status Date / Time No Known Allergies Allergy Verified 12/11/20 10:56 Review of Systems ROS Statement: Those systems with pertinent positive or pertinent negative responses have been documented in the HPI. ROS Other: All systems not noted in ROS Statement are negative. Past Medical History Past Medical History: Deep Vein Thrombosis (DVT) Additional Past Medical History / Comment(s): chronic neck and back pain DVT (2012) History of Any Multi-Drug Resistant Organisms: None Reported Past Surgical History: Section, Hysterectomy Additional Past Surgical History / Comment(s): neck surgeryx2 , L foot, L leg thrombectomy, Lap Band Past Psychological History: Anxiety, Depression Smoking Status: Never smoker Past Alcohol Use History: None Reported Past Drug Use History: None Reported General Exam Limitations: no limitations General appearance: alert, in no apparent distress Head exam: Present: atraumatic, normal inspection Eye exam: Present: normal appearance, PERRL, EOMI Pupils: Present: normal accommodation ENT exam: Present: normal exam, normal oropharynx, mucous membranes moist, TM's normal bilaterally, normal external ear exam Neck exam: Present: normal inspection, tenderness (Right paraspinal tenderness of the cervical spine), full ROM. Absent: lymphadenopathy Respiratory exam: Present: normal lung sounds bilaterally. Absent: respiratory distress, wheezes, rales, rhonchi, stridor, chest wall tenderness Cardiovascular Exam: Present: regular rate, normal rhythm, normal heart sounds. Absent: systolic murmur Extremities exam: Present: normal inspection, full ROM, tenderness (Mild tenderness over the right trap), normal capillary refill, other (Palpable ulnar and radial pulses bilaterally.). Absent: pedal edema, joint swelling, calf tenderness Back exam: Present: normal inspection, full ROM. Absent: tenderness, CVA tenderness (R), CVA tenderness (L) Neurological exam: Present: alert, oriented X3 Expanded Sensory exam: Upper Extremity Light Touch: Normal, Upper Extremity Pin Prick: Normal, Lower Extremity Light Touch: Normal, Lower Extremity Pin Prick: Normal Motor strength exam: RUE: 5, LUE: 5 Psychiatric exam: Present: normal affect, normal mood Skin exam: Present: warm, dry, intact, normal color Course Vital Signs 12/11/20 10:01 Temperature 98.0 F Pulse Rate 76 Respiratory 18 Rate Blood Pressure 142/89 O2 Sat by Pulse 95 Oximetry Medical Decision Making - Medical Decision Making 65-year-old female presents emergency department with a chief complaint of right arm numbness tingling and neck pain. Physical examination is indicative of some right paraspinal tenderness in the cervical spine. She is otherwise neurovascularly intact in the right upper extremity. No concern for cauda equina at this time. CT of the cervical spine shows no acute findings. There is a suggestion for CT myelogram. I advised the patient to follow-up with an system configuration specialist. Strict return parameters were thoroughly discussed with patient's attending agreeable. Case discussed with Dr. Frank. Disposition Clinical Impression: Cervical radiculopathy Disposition: HOME SELF-CARE Condition: Stable Instructions (If sedation given, give patient instructions): Cervical Radiculopathy (ED) Additional Instructions: Please return to the Emergency Department if symptoms worsen or any other concerns. Follow up with an system configuration specialist. Is patient prescribed a controlled substance at d/c from ED?: No Referrals: Murali Umana MD [Primary Care Provider] - 1-2 days Dallas Avalos DO [Doctor of Osteopathic Medicine] - 1-2 days Time of Disposition: 11:36
--- NOTE | 2020-12-11 11:24 | CT ---
EXAMINATION TYPE: CT cervical spine wo con DATE OF EXAM: 12/11/2020 COMPARISON: NONE HISTORY: Chronic neck and right arm pain. CT DLP: 426.4 mGycm. Automated Exposure Control for Dose Reduction was Utilized. TECHNIQUE: CT scan of the cervical spine is obtained without contrast, axial images are obtained, sa gittal and coronal reformatted images are also reviewed. FINDINGS: Cervical spine is visualized in its entirety from C1 through upper thoracic levels, demonst rates reversal of normal cervical curvature without evidence of acute fracture or dislocation. Preve rtebral soft tissue appears within normal limits. The C1-C2 articulation is within normal limits on the coronal images. Vertebral body heights are maintained. There is anterior fusion plate with artifi cial disc material and some ossific fusion of C5-C7 levels at peak of cervical curvature. There is mo derate disc space narrowing and disc calcification at C3-C4 and C4-C5 levels. There is posterior inte rpedicular rods and screws transfixing C3-C5 levels with some ossification of the right posterior dave ments. Posterior decompression changes. No large posterior disc herniation clearly seen. Streak artif act from metallic hardware makes evaluation suboptimal. Review of axial images shows multilevel uncovertebral and facet degenerative changes. Thyroid gland i s felt within normal limits. Visualized lung apices show no pneumothorax. IMPRESSION: There is no acute findings identified. If strong clinical suspicion persists further inv estigation with CT myelogram may be warranted.
== END 2020-12-11 11:54 | disposition home or self-care (01) ==
LOC: EC 09:49
DX: M54.12 Radiculopathy, cervical region (principal); F32.9 Major depressive disorder, single episode, unspecified; F41.9 Anxiety disorder, unspecified; Z86.718 Personal history of other venous thrombosis and embolism; Z79.1 Long term (current) use of non-steroidal anti-inflammatories (NSAID)
CPT/HCPCS: 72125; 99283

== ENCOUNTER 2021-01-05 08:00 | Day surgery (SDC) | payer MEDICARE, OTHER ==
[2021-01-03 15:54] VITALS: BMI 29.2
[~2021-01-05 08:00] MED LIST changes: -DENOSUMAB 60 MG/ML 1 ML SYRINGE SQ NR; +LACTATED RINGERS 1,000 ML IV SCH
[2021-01-05 08:28] VITALS: TEMP 97.3
[2021-01-05] MEDS ORDERED: PROPOFOL 10 MG/ML 20 ML VIAL IV ONE (09:02)
[2021-01-05] MEDS ORDERED: LIDOCAINE 1% INJ 10MG/ML (20 ML MDV) ONE (09:02)
--- NOTE | 2021-01-05 09:21 | P.PCN ---
Date of Procedure: 01/05/21 Procedure(s) Performed: BRIEF HISTORY: Patient is a 65-year-old pleasant white female scheduled for an elective colonoscopy as a part of evaluation of intermittent rectal bleeding. PROCEDURE PERFORMED: Colonoscopy. PREOPERATIVE DIAGNOSIS: Intermittent rectal bleeding. IV sedation per Anesthesia. PROCEDURE: After informed consent was obtained, the patient, was brought into the endoscopy unit. IV sedation was administered by Anesthesia under continuous monitoring. Digital rectal examination was normal. Initially the Olympus CF-160 flexible video colonoscope was then inserted in the rectum, gradually advanced into the cecum without any difficulty. Careful examination was performed as the scope was gradually being withdrawn. Ileocecal valve and the appendiceal orifice were visualized and appeared normal. Prep was excellent. Mucosa of the cecum, ascending colon, transverse colon, descending colon, sigmoid colon, and rectum appeared normal. The sigmoid diverticulosis. Retroflexion was performed in the rectum and weight 2 internal hemorrhoids were seen. The patient tolerated the procedure well. IMPRESSION: Normal-appearing colon from rectum to cecum with no evidence of colon rectal neoplasia . Grade 2 internal hemorrhoids scattered sigmoid diverticulosis RECOMMENDATIONS: Findings of this examination were discussed with the patientas well as her family. She was advised to be a high-fiber diet and take fiber supplements a regular basis. She can have a repeat screening colonoscopy in 10 years.].
[2021-01-05 09:59] VITALS: BP 144/70; PULSE 60; RESP 20
== END 2021-01-05 10:00 | disposition home or self-care (01) ==
LOC: ORWHC2ENDO 08:00
PROVIDERS: ATTEND Internal Medicine Gastroenterology
DX: K57.30 Diverticulosis of large intestine without perforation or abscess without bleeding (principal); K64.1 Second degree hemorrhoids; K62.5 Hemorrhage of anus and rectum; Z86.718 Personal history of other venous thrombosis and embolism; Z86.711 Personal history of pulmonary embolism; G89.29 Other chronic pain; M54.5 Low back pain; Z79.899 Other long term (current) drug therapy
CPT/HCPCS: 45378; J2001; J2704

== ENCOUNTER → 2021-02-05 | Outpatient (CLI) | payer MEDICARE, OTHER ==
--- NOTE | 2021-02-05 10:34 | CT ---
EXAMINATION TYPE: CT cervical spine wo con DATE OF EXAM: 02/05/2021 COMPARISON: 12/11/2020 HISTORY: 65-year-old female M54.12 Radiculopathy cervical region. Cervical spine surgery on 01/19/2021 for right arm numbness, now left upper extremity symptoms. TECHNIQUE: Contiguous axial scanning of the cervical spine without IV contrast. Coronal and sagittal reconstructions performed. CT DLP: 404.9 mGycm Automated exposure control for dose reduction was used. FINDINGS: As compared to 12/11/2020, there has been interval placement of C7-T1 posterior cervical fusion hardwa re. On the right, the C7 screw apparently traverses the C7-T1 neuroforamen causing moderate narrowing. On the left, the C7 screw appears to entirely traverse the C7-T1 neural foramen. There is a posterior midline fluid collection measuring 7.6 x 3.6 x 2.3 cm that could represent a ser winston. Abscess should be excluded clinically. Posterior cervical fusion at C3-C5 and ACDF from C5 through C7 are unchanged with fixed reversal of t he cervical lordosis. Wide laminectomies C3-C5 levels also redemonstrated. Mild to moderate bony neuroforaminal narrowing on the left at C3-C4, C6-C7, and T1-T2. Moderate bony neuroforaminal narrowing on the right at T1-T2 and mild at C6/C7. IMPRESSION: 1. PREVIOUS C3-C5 POSTERIOR CERVICAL FUSION WITH CORRESPONDING LAMINECTOMIES AND C5-C7 ACDF. FIXED RE VERSAL THE NORMAL CERVICAL LORDOSIS. 2. INTERVAL PLACEMENT OF C7-T1 POSTERIOR CERVICAL FUSION HARDWARE. FLUID COLLECTION ALONG THE POSTERI OR MIDLINE MEASURES 7.6 X 3.6 CM AND COULD REPRESENT A SEROMA. ABSCESS SHOULD BE EXCLUDED CLINICALLY. 3. NOTE THAT THE LEFT C7 FACET SCREW ENTIRELY TRAVERSES THE C7-T1 NEUROFORAMEN AND MAY CONTRIBUTORY T O THE PATIENT'S SYMPTOMS. 4. ON THE RIGHT, THE C7 SCREW PARTIALLY TRAVERSES THE C7-T1 NEUROFORAMEN CAUSING MODERATE FORAMINAL N ARROWING.
== END | disposition home or self-care (01) ==
LOC: RADCTMAIN 06:50
PROVIDERS: ATTEND Neurological Surgery
DX: Z09 Encounter for follow-up examination after completed treatment for conditions other than malignant neoplasm (principal); M54.12 Radiculopathy, cervical region; M40.40 Postural lordosis, site unspecified; M43.22 Fusion of spine, cervical region
CPT/HCPCS: 72125

== ENCOUNTER → 2021-03-02 | Outpatient (CLI) | payer MEDICARE, OTHER ==
--- NOTE | 2021-03-07 11:43 | CT ---
EXAMINATION TYPE: CT cervical spine wo con DATE OF EXAM: 03/02/2021 COMPARISON: 02/05/2021 HISTORY: Follow up after cervical surgery. CT DLP: [address] of the cervical spine was performed with bone and soft tissue window settings submitted . Coronal and sagittal reconstruction is obtained. There has been revision of posterior cervical fusion hardware extending from C6 through T1. There is also posterior fusion hardware appearing stable extending from C3 through C5. Postoperative changes o f anterior cervical discectomy and fusion extending from C5 through C7 with the fixation plate and sc rews in place. Posterior midline fluid collection persists and measures 6 x 3.3 cm versus 7.6 x 3.6 x 2.3 cm previou sly. This likely reflects residual seroma although abscess is not excluded. Fixed reversal of the cervical lordosis. Wide laminectomies extending from C3 through C5. Persistent mild to moderate left foraminal narrowing on the left at C3-4 IMPRESSION: 1. Revision of posterior cervical fusion hardware C6-T1. 2. Midline fluid collection persists although is smaller in size.
== END | disposition home or self-care (01) ==
LOC: RADCTMAIN 15:32
PROVIDERS: ATTEND Neurological Surgery
DX: Z47.89 Encounter for other orthopedic aftercare (principal); Z98.1 Arthrodesis status
CPT/HCPCS: 72125

== ENCOUNTER → 2021-07-12 | Outpatient (CLI) | payer MEDICARE, OTHER ==
[~2021-07-12] MED LIST changes: -LACTATED RINGERS 1,000 ML IV SCH; +SODIUM CHLORIDE 0.9% 500 ML 500 ML in EMPTY BAG 1 BAG IV PRN; +ZOLEDRONIC ACID 5 MG in SODIUM CHLORIDE 0.9% 100 ML IV NR
[2021-07-12 12:52] VITALS: BP 130/84; PULSE 55; RESP 15; TEMP 98.2
== END | disposition home or self-care (01) ==
LOC: PROCWHC3 12:40
PROVIDERS: ATTEND Family Medicine
DX: M81.0 Age-related osteoporosis without current pathological fracture (principal)
CPT/HCPCS: 96365; J3489

== ENCOUNTER 2021-12-18 17:02 | Emergency (ER) | payer MEDICARE, OTHER ==
--- NOTE | 2021-12-18 18:44 | XR ---
EXAMINATION TYPE: XR foot complete LT DATE OF EXAM: 12/18/2021 COMPARISON: NONE HISTORY: Foot pain TECHNIQUE: 3 views FINDINGS: There is transverse fracture across the base of the fifth metatarsal. There is previous surgery at the first MP joint with osteotomy. The toes are intact. IMPRESSION: Acute nondisplaced fracture at the base of the fifth metatarsal.
[2021-12-18] MEDS ORDERED: ACET/COD 300 MG/30 MG STARTER PACK 6 TAB BTL PO STA (19:48)
--- NOTE | 2021-12-18 20:24 | ED ---
Lower Extremity Injury HPI - General Chief Complaint: Extremity Injury, Lower Stated Complaint: Lt Foot Pain Time Seen by Provider: 12/18/21 19:41 Source: patient, family, RN notes reviewed Mode of arrival: ambulatory Limitations: no limitations - History of Present Illness Initial Comments: This is a 66-year-old female who presents to the emergency department for left foot pain. Patient tripped in a hole while she was walking outside today, causing the pain. She has been unable to ambulate since. She has not tried taking anything for the pain but has been icing the foot since the injury. Denies any fevers, chills, sore throat, cough, dyspnea, chest pain, palpitations, abdominal pain, nausea, vomiting, diarrhea, back pain, or headac hes. MD Complaint: foot injury Injury: Foot: Left Place: street/outdoors Worsens With: weight bearing Treatments Prior to Arrival: cold therapy - Related Data Home Medications Medication Instructions Recorded Confirmed LORazepam [Ativan] 1 mg PO Q8H PRN 05/16/14 07/12/21 Celecoxib [CeleBREX] 200 mg PO DAILY 11/06/20 07/12/21 Escitalopram [Lexapro] 20 mg PO DAILY 11/06/20 07/12/21 traZODone HCL 50 mg PO HS 11/06/20 07/12/21 Calcium Carbonate [Calcium] 600 mg PO DAILY 01/03/21 07/12/21 Cholecalciferol [Vitamin D3 (25 25 mcg PO DAILY 01/03/21 07/12/21 Mcg = 1000 Iu)] Gabapentin [Neurontin] 300 mg PO DAILY 01/03/21 07/12/21 Acetaminophen Tab [Tylenol] 650 mg PO Q6H PRN 01/05/21 07/12/21 Previous Rx's Medication Instructions Recorded Acetaminophen-Codeine 300-30mg 1 tab PO Q6H PRN 3 Days #12 tablet 12/18/21 [Tylenol w/codeine #3] Allergies Allergy/AdvReac Type Severity Reaction Status Date / Time No Known Allergies Allergy Verified 12/18/21 18:09 Review of Systems ROS Statement: Those systems with pertinent positive or pertinent negative responses have been documented in the HPI. ROS Other: All systems not noted in ROS Statement are negative. Past Medical History Past Medical History: Deep Vein Thrombosis (DVT) Additional Past Medical History / Comment(s): chronic neck and back pain DVT (2013) History of Any Multi-Drug Resistant Organisms: None Reported Past Surgical History: Section, Hysterectomy Additional Past Surgical History / Comment(s): neck surgeryx2 , L foot, L leg thrombectomy, Lap Band Past Psychological History: Anxiety, Depression Smoking Status: Never smoker Past Alcohol Use History: None Reported Past Drug Use History: None Reported General Exam Limitations: no limitations General appearance: alert, in no apparent distress Head exam: Present: atraumatic, normocephalic, normal inspection Respiratory exam: Present: normal lung sounds bilaterally. Absent: respiratory distress, wheezes, rales, rhonchi, stridor Cardiovascular Exam: Present: regular rate, normal rhythm, normal heart sounds. Absent: systolic murmur, diastolic murmur, rubs, gallop, clicks Extremities exam: Present: other (Swelling, ecchymosis, and tenderness to palpation at the base of the fifth metatarsal on the left) Neurological exam: Present: alert, oriented X3, CN II-XII intact Psychiatric exam: Present: normal affect, normal mood Skin exam: Present: warm, dry, intact, normal color. Absent: rash Course Vital Signs 12/18/21 12/18/21 18:07 20:43 Temperature 98.2 F 97.8 F Pulse Rate 57 L 60 Respiratory 20 18 Rate Blood Pressure 148/86 145/78 O2 Sat by Pulse 96 98 Oximetry Procedures - Orthopedic Splinting/Casting Injury #1 Side: left Lower Extremity Injury Location: foot (Left) Lower Extremity Immobilizer: posterior splint Other Orthopedic Equipment: crutches Medical Decision Making - Medical Decision Making This is a 66-year-old female who presents to the emergency department for left foot pain. X-ray reveals an acute nondisplaced fracture at the base of the fifth metatarsal. Patient placed in a posterior splint and given crutches. Tylenol #3 starter pack provided as her pharmacy is closed at the time of discharge. Three-day Rx for Tylenol #3 prescribed, advised to use this sparingly when the pain is most severe. She already takes Celebrex daily and will continue to do so. Instructed her to ice the foot for the first 2 days followed by heat there afterwards. She is also advised to keep the foot elevated. Information for orthopedics listed on discharge forms. She is instructed to contact them for a follow-up appointment. Return precautions reviewed in depth, the patient is instructed to return to the emergency department with any new, worsening, or concerning symptoms. Patient verbalized understanding. This case was discussed in detail with the attending ED physician. Presentation, findings, and treatment plan discussed in detail as well. - Radiology Data Radiology results: report reviewed, image reviewed Disposition Clinical Impression: Fracture of fifth metatarsal bone of left foot Disposition: HOME SELF-CARE Instructions (If sedation given, give patient instructions): Foot Fracture in Adults (ED) Additional Instructions: Return to the emergency department with any new, worsening, or concerning symptoms. Take the Tylenol #3 as needed for severe pain and continue taking Celebrex daily. Add Tylenol as needed for additional pain relief. Contact orthopedics for a follow-up appointment. Follow up with your primary care provider in 1-2 days. Prescriptions: Acetaminophen-Codeine 300-30mg [Tylenol w/codeine #3] 1 tab PO Q6H PRN 3 Days #12 tablet PRN Reason: Pain Is patient prescribed a controlled substance at d/c from ED?: Yes When asked, does pt state using other controlled substances?: Yes If prescribed controlled substance>3 days was MAPS reviewed?: Prescribed <3 Days Referrals: Murali Umana MD [Primary Care Provider] - 1-2 days Tyler Mclaughlin MD [STAFF PHYSICIAN] - 1-2 days
[2021-12-18 20:44] VITALS: BP 145/78; PULSE 60; RESP 18; TEMP 97.8
== END 2021-12-18 20:00 | disposition home or self-care (01) ==
LOC: EC 17:02
DX: S92.355A Nondisplaced fracture of fifth metatarsal bone, left foot, initial encounter for closed fracture (principal); F32.A Depression, unspecified; F41.9 Anxiety disorder, unspecified; Z79.899 Other long term (current) drug therapy; Z86.718 Personal history of other venous thrombosis and embolism; W18.42XA Slipping, tripping and stumbling without falling due to stepping into hole or opening, initial encounter; Y93.01 Activity, walking, marching and hiking
CPT/HCPCS: 29515; 99283

== ENCOUNTER 2022-01-01 23:01 | Inpatient (IN) | payer MEDICARE, OTHER ==
--- NOTE | 2022-01-02 01:47 | ED ---
Weakness HPI - General Chief complaint: Weakness Stated complaint: Fall Time Seen by Provider: 01/02/22 01:35 Source: patient, RN notes reviewed, old records reviewed Mode of arrival: wheelchair Limitations: no limitations - History of Present Illness Initial comments: This is a 66-year-old female presented today for evaluation. Patient presents for evaluation of multiple falls. Patient has history of neck surgery. Recently has been following with her legs is giving out. She cannot predict when it happens once can happen. No triadic injury from his falls MD Complaint: generalized weakness -: week(s) Location: generalized Severity: severe Severity scale (1-10): 8 Consistency: intermittent Improves with: none Worsens with: none Context: recent surgery Associated Symptoms: denies other symptoms - Related Data Home Medications Medication Instructions Recorded Confirmed LORazepam [Ativan] 1 mg PO Q8H PRN 05/16/14 07/12/21 Celecoxib [CeleBREX] 200 mg PO DAILY 11/06/20 07/12/21 Escitalopram [Lexapro] 20 mg PO DAILY 11/06/20 07/12/21 traZODone HCL 50 mg PO HS 11/06/20 07/12/21 Calcium Carbonate [Calcium] 600 mg PO DAILY 01/03/21 07/12/21 Cholecalciferol [Vitamin D3 (25 25 mcg PO DAILY 01/03/21 07/12/21 Mcg = 1000 Iu)] Gabapentin [Neurontin] 300 mg PO DAILY 01/03/21 07/12/21 Acetaminophen Tab [Tylenol] 650 mg PO Q6H PRN 01/05/21 07/12/21 Previous Rx's Medication Instructions Recorded Acetaminophen-Codeine 300-30mg 1 tab PO Q6H PRN 3 Days #12 tablet 12/18/21 [Tylenol w/codeine #3] Allergies Allergy/AdvReac Type Severity Reaction Status Date / Time No Known Allergies Allergy Verified 01/02/22 00:40 Review of Systems ROS Statement: Those systems with pertinent positive or pertinent negative responses have been documented in the HPI. ROS Other: All systems not noted in ROS Statement are negative. Past Medical History Past Medical History: Deep Vein Thrombosis (DVT) Additional Past Medical History / Comment(s): chronic neck and back pain DVT (2012) History of Any Multi-Drug Resistant Organisms: None Reported Past Surgical History: Section, Hysterectomy Additional Past Surgical History / Comment(s): neck surgeryx2 , L foot, L leg thrombectomy, Lap Band Past Psychological History: Anxiety, Depression Smoking Status: Never smoker Past Alcohol Use History: None Reported Past Drug Use History: None Reported General Exam General appearance: alert, in no apparent distress Head exam: Present: atraumatic, normocephalic, normal inspection Eye exam: Present: normal appearance, PERRL, EOMI. Absent: scleral icterus, conjunctival injection, periorbital swelling ENT exam: Present: normal exam, mucous membranes moist Neck exam: Present: normal inspection. Absent: tenderness, meningismus, lym phadenopathy Respiratory exam: Present: normal lung sounds bilaterally. Absent: respiratory distress, wheezes, rales, rhonchi, stridor Cardiovascular Exam: Present: regular rate, normal rhythm, normal heart sounds. Absent: systolic murmur, diastolic murmur, rubs, gallop, clicks GI/Abdominal exam: Present: soft, normal bowel sounds. Absent: distended, tenderness, guarding, rebound, rigid Extremities exam: Present: normal inspection, full ROM, normal capillary refill. Absent: tenderness, pedal edema, joint swelling, calf tenderness Back exam: Present: normal inspection Neurological exam: Present: alert, oriented X3, CN II-XII intact Psychiatric exam: Present: normal affect, normal mood Skin exam: Present: warm, dry, intact, normal color. Absent: rash Course Vital Signs 01/02/22 00:34 Temperature 98.1 F Pulse Rate 75 Respiratory 19 Rate Blood Pressure 146/86 O2 Sat by Pulse 98 Oximetry - Reevaluation(s) Reevaluation #1: 01/02/22 03:14 Medical record is reviewed Reevaluation #2: 01/02/22 03:14 Patient states at this point she would like second opinion regarding her neck issues and possible relationship to falls Reevaluation #3: 01/02/22 03:15 Patient has no significant pain in no distress - Consultations Consultation #1: Spoke with Sound will admit this patient EKG Findings - EKG Comments: EKG Findings:: EKG is sinus bradycardia 58 DC 201 QRS 113 QTc 402 Medical Decision Making - Medical Decision Making 66 male with frequent falls history of neck surgery, patient will be admitted for for PTOT and consult regarding possible cause of falls - Lab Data Result diagrams: 01/02/22 02:18 01/02/22 02:18 Lab Results 01/02/22 01/02/22 01/02/22 Range/Units 02:18 02:18 02:18 WBC 8.1 (3.8-10.6) k/uL RBC 5.10 (3.80-5.40) m/uL Hgb 14.7 (11.4-16.0) gm/dL Hct 44.7 (34.0-46.0) % MCV 87.7 (80.0-100.0) fL MCH 28.8 (25.0-35.0) pg MCHC 32.9 (31.0-37.0) g/dL RDW 13.2 (11.5-15.5) % Plt Count 178 (150-450) k/uL MPV 7.8 Neutrophils % 61 % Lymphocytes % 28 % Monocytes % 7 % Eosinophils % 2 % Basophils % 1 % Neutrophils # 5.0 (1.3-7.7) k/uL Lymphocytes # 2.3 (1.0-4.8) k/uL Monocytes # 0.5 (0-1.0) k/uL Eosinophils # 0.1 (0-0.7) k/uL Basophils # 0.1 (0-0.2) k/uL PT 10.0 (9.0-12.0) sec INR 0.9 (<1.2) APTT 23.0 (22.0-30.0) sec Sodium 139 (137-145) mmol/L Potassium 3.9 (3.5-5.1) mmol/L Chloride 106 (98-107) mmol/L Carbon Dioxide 30 (22-30) mmol/L Anion Gap 3 mmol/L BUN 19 H (7-17) mg/dL Creatinine 0.76 (0.52-1.04) mg/dL Est GFR (CKD-EPI)AfAm >90 (>60 ml/min/1.73 sqM) Est GFR (CKD-EPI)NonAf 81 (>60 ml/min/1.73 sqM) Glucose 125 H (74-99) mg/dL Calcium 9.1 (8.4-10.2) mg/dL Phosphorus 3.4 (2.5-4.5) mg/dL Magnesium 2.1 (1.6-2.3) mg/dL Total Bilirubin 0.5 (0.2-1.3) mg/dL AST 25 (14-36) U/L ALT 19 (4-34) U/L Alkaline Phosphatase 71 (38-126) U/L Total Protein 6.8 (6.3-8.2) g/dL Albumin 4.1 (3.5-5.0) g/dL Disposition Clinical Impression: Weakness, Multiple falls, History of neck surgery Disposition: ADMITTED IP TO THIS HOSP Condition: Fair Is patient prescribed a controlled substance at d/c from ED?: No Time of Disposition: 03:20
[2022-01-02] MEDS ORDERED: SODIUM CHLORIDE 0.9% 1,000 ML IV STA (02:18)
[2022-01-02 02:52] LABS: Basophils # (A) 0.1 k/uL (0-0.2); Basophils % (A) 1 %; Eosinophils # (A) 0.1 k/uL (0-0.7); Eosinophils % (A) 2 %; HCT 44.7 % (34.0-46.0); HGB 14.7 gm/dL (11.4-16.0); Lymphocytes # (A) 2.3 k/uL (1.0-4.8); Lymphocytes % (A) 28 %; MCH 28.8 pg (25.0-35.0); MCHC 32.9 g/dL (31.0-37.0); MCV 87.7 fL (80.0-100.0); Mean Platelet Volume 7.8; Monocytes # (A) 0.5 k/uL (0-1.0); Monocytes % (A) 7 %; Neutrophils % (A) 61 %; Platelet Count 178 k/uL (150-450); RDW 13.2 % (11.5-15.5); WBC 8.1 k/uL (3.8-10.6)
[2022-01-02 03:05] LABS: INR 0.9 (<1.2)
[2022-01-02 03:09] LABS: ALT 19 U/L (4-34); AST 25 U/L (14-36); African American GFR (CKD) >90 (>60 ml/min/1.73 sqM); Albumin 4.1 g/dL (3.5-5.0); Alkaline Phosphatase 71 U/L (38-126); Anion Gap 3 mmol/L; Blood Urea Nitrogen 19 mg/dL (7-17); Calcium 9.1 mg/dL (8.4-10.2); Carbon Dioxide 30 mmol/L (22-30); Chloride 106 mmol/L (98-107); Glucose 125 mg/dL (74-99); Magnesium 2.1 mg/dL (1.6-2.3); Non-African American GFR(CKD) 81 (>60 ml/min/1.73 sqM); Phosphorus 3.4 mg/dL (2.5-4.5); Potassium 3.9 mmol/L (3.5-5.1); Sodium 139 mmol/L (137-145); Total Bilirubin 0.5 mg/dL (0.2-1.3); Total Protein 6.8 g/dL (6.3-8.2)
--- NOTE | 2022-01-02 05:10 | P.HPIM ---
History of Present Illness H&P Date: 01/02/22 The patient is a 66-year-old female with a PMH of chronic neck pain with cervical DJD, status post 4 cervical spinal surgeries, most recently October 2021, who now presents to the emergency room with complaints of weakness and multiple falls. Patient reports that over the past few months, she has noticed gradually worsening weakness involving her legs and to a lesser degree her arms. She reports that she is now unable to ambulate and after standing up and walking for a few steps, her legs simply gave out. She reports falling 3 times yesterday and has been falling daily for the past several weeks. Denies numbness or tingling of any of her extremities. Denies experiencing lightheadedness or d izziness. Reports no difficulty in getting up out of a chair. Denies neck pain, headaches, or fevers. Denies chest discomfort, shortness of breath, nausea, vomiting, abdominal pain, diarrhea. EKG emergency room no sinus bradycardia at 58 beats per minute with left axis deviation with poor R-wave progression. Laboratory evaluation was unremarkable. Review of systems: Pertinent positives and negatives as discussed in HPI, a complete review of systems was performed and all other systems are negative. Physical examination: General: non toxic, no distress, appears at stated age, normal weight Derm: no unusual rashes/lesions, warm Head: atraumatic, normocephalic, symmetric Eyes: EOMI, no lid lag, anicteric sclera, pupils equal round reactive to light ENT: Nose and ears atraumatic Neck: No cervical lymphadenopathy, trachea midline, supple Mouth: no lip lesion, mucus membranes moist Cardiovascular: S1S2 reg, no murmur, positive dorsalis pedis pulse bilateral, no edema Lungs: CTA bilateral, no rhonchi, no rales, no accessory muscle use Abdominal: soft, nontender to palpation, no guarding Ext: muscle strength 3 out of 5 in all 4 extremities grossly, no gross muscle atrophy, no contractures, Neuro: CN II-XI grossly intact, no gross focal neuro deficits Psych: Alert, oriented, appropriate affect Assessment/plan Diffuse weakness with multiple falls -Obtain inflammatory markers -PT consult -Fall precautions DVT prophylaxis -Heparin subcu The patient is admitted with an anticipated less than 2 midnight stay for evaluation of multiple falls CODE STATUS: Full Code Discussed with: Patient Anticipated discharge date: In a.m. Anticipated discharge place: Home Past Medical History Past Medical History: Deep Vein Thrombosis (DVT) Additional Past Medical History / Comment(s): chronic neck and back pain DVT (20 13) History of Any Multi-Drug Resistant Organisms: None Reported Past Surgical History: Section, Hysterectomy Additional Past Surgical History / Comment(s): neck surgeryx2 , L foot, L leg thrombectomy, Lap Band Past Psychological History: Anxiety, Depression Smoking Status: Never smoker Past Alcohol Use History: None Reported Past Drug Use History: None Reported - Past Family History Father Family Medical History: Hyperlipidemia Medications and Allergies Home Medications Medication Instructions Recorded Confirmed Type LORazepam [Ativan] 1 mg PO Q8H PRN 05/16/14 07/12/21 History Celecoxib [CeleBREX] 200 mg PO DAILY 11/06/20 07/12/21 History Escitalopram [Lexapro] 20 mg PO DAILY 11/06/20 07/12/21 History traZODone HCL 50 mg PO HS 11/06/20 07/12/21 History Calcium Carbonate [Calcium] 600 mg PO DAILY 01/03/21 07/12/21 History Cholecalciferol [Vitamin D3 (25 25 mcg PO DAILY 01/03/21 07/12/21 History Mcg = 1000 Iu)] Gabapentin [Neurontin] 300 mg PO DAILY 01/03/21 07/12/21 History Acetaminophen Tab [Tylenol] 650 mg PO Q6H PRN 01/05/21 07/12/21 History Acetaminophen-Codeine 300-30mg 1 tab PO Q6H PRN 3 Days #12 tablet 12/18/21 Rx [Tylenol w/codeine #3] Allergies Allergy/AdvReac Type Severity Reaction Status Date / Time No Known Allergies Allergy Verified 01/02/22 00:40 Physical Exam Vitals: Vital Signs Temp Pulse Resp BP Pulse Ox 01/02/22 03:40 60 16 162/88 93 L 01/02/22 00:34 98.1 F 75 19 146/86 98 Intake and Output 01/01/22 01/01/22 01/02/22 14:59 22:59 06:59 Other: Weight 63.503 kg Results CBC & Chem 7: 01/02/22 02:18 01/02/22 02:18 Labs: Abnormal Lab Results - Last 24 Hours (Table) 01/02/22 Range/Units 02:18 BUN 19 H (7-17) mg/dL Glucose 125 H (74-99) mg/dL
[2022-01-02] MEDS: HEPARIN SODIUM,PORCINE/PF 5,000 UNIT/0.5 ML SYRINGE SQ SCH ×3 (10:27→20:03)
--- NOTE | 2022-01-02 13:35 | P.PN ---
Progress Note - Text Progress Note Date: 01/02/22 I came to bedside today to try to see the patient. Apparently the patient is in another part of the hospital having testing. We're counseled in regards to multiple falls. I have reviewed the chart and the notes. The patient has apparently been having some difficulty with her ambulation and her gait. She has recent surgery with Dr. Jordan Shepherd who works as a neurosurgeon and perform surgery apparently 2 times on this patient as recently as October or less than 6 weeks ago. The patient has had a computed tomography scan here which shows posterior cervical fusion from C3 to T1 with anterior cervical hardware from C5 to C7. The hardware appears to be stable and intact. I do not see any obvious fracture or dislocation. I do not see any gross failure of the hardware. Apparently patient had been having difficulty with her ambulation and with global weakness. It would seem that she has been having surgical treatment with Dr. Seo specifically for this as she has had multiple cervical spinal procedures. She is still in her global period from her most recent spine surgery with Dr. Seo and if she is having further concerns I would recommend that she continue treatment with him. We have tried to discuss this with staff to try to have her so that she can continue treatment with her own spine surgeon who has performed recent surgery on her. We will continue to investigate the matter so that she can try to continue appropriate care postoperatively in terms of her spine with Dr. Purcell
--- NOTE | 2022-01-02 15:25 | CT ---
EXAMINATION TYPE: CT CervThorLumbar spine wo con DATE OF EXAM: 01/02/2022 COMPARISON: CT C-spine the most recent 08/15/2021 HISTORY: hx of cervical spin sx. pt c/o back pain and BLE weakness CT DLP: 2313.50 mGycm Automated exposure control for dose reduction was used. FINDINGS: There is postsurgical changes to the cervical thoracic spine. Hardware appears intact. Streak artifac t limits evaluation no gross evidence for cervical spinal stenosis. Multilevel facet joint arthropath y with neural foramen are grossly intact. There is moderate to severe right neural foraminal stenosis at C7-T1. There is postsurgical in straightening alignment of the spine. No evidence of organizing f luid collection. There is multilevel disc degeneration changes seen throughout the thoracic and lumbar spine. Multilev el disc osteophytes complexes are seen throughout the thoracolumbar spine with at least mild spinal c anal stenosis. There is increased lordosis of the lumbar spine. There is grade 1 anterolisthesis of L 4 and L5 and L5 on S1. No evidence of spondylolysis. Facet joint arthropathy throughout the lumbar sp ine results in bilateral severe neural foraminal stenosis at L1-L2, bilateral moderate at L2-L3, and bilateral mild at L3-L4 and L4-L5 and L5-S1. Postsurgical changes of gastric band which appears in appropriate position. IMPRESSION: 1. Multilevel disc degeneration changes throughout the spine with multilevel disc osteophyte complex with at least mild spinal canal stenosis. This results in at least severe bilateral neural foraminal stenosis at L1-L2 and moderate L2-L3. 2. Postsurgical changes of the cervical spine with hardware intact. 3. Moderate to severe right C7-T1 neural foraminal stenosis. 4. No evidence for acute fracture. 5. Grade 1 anterolisthesis of L4 on L5 and L5 on S1 without spondylolysis.
[2022-01-02] MEDS: MELOXICAM 7.5 MG TAB PO SCH (17:11)
[2022-01-02] MEDS: DULoxetine HCL 30 MG CAPSULE.DR PO SCH (17:12)
--- NOTE | 2022-01-02 17:17 | P.CNOR ---
History of Present Illness - [facility] Consult date: 01/02/22 Consult reason: other History of present illness: The patient is seen and examined at bedside. She is a very pleasant 66-year-old female whose primary complaint is that of recurrent falls at home. She feels that her legs are not doing what they're supposed to. She says this been going on for about a month. She denies any specific trauma or incident. She says she did hurt her left foot when she fell is broken. She has been seeing her primary care doctor in regard to these falls as well. She says these issues seem like they may be worsening over the past couple of weeks. She says she has not had any problem like this with her legs in the past. She denies any bowel or bladder changes. She does have a new diagnosis of ulcerative colitis. At home she takes Cymbalta, Celebrex. She has a long history of cervical issues at her neck and multiple surgeries. She says she has not had any problems like this with her legs. In regards to her cervical spine she has had 6 different surgeries on her neck. She initially had [address] Torres in [place] and then had [address] Jordan Lucero at [facility]. She said she stayed overnight after her surgeries. She her most recent surgery was in October of this year where she had anterior cervical decompression and fusion at C7-T1. Her initial surgery was with Dr. Lucero was in January of last year for numbness and neurologic sensation at her right upper extremity. She feels that she continues to have issues with numbness and for hands bilaterally. She feels that has not changed over the past year. Review of Systems As per HPI. She denies any bowel or bladder changes. She denies any fevers chills. Currently she denies any abdominal pain. She denies any numbness in her legs but feels that she has some numbness in the bottom of her left foot. She does not particularly feel. She just feels like her legs will not do with this posterior. Past Medical History Past Medical History: Deep Vein Thrombosis (DVT), Musculoskeletal Disorder Additional Past Medical History / Comment(s): Multiple cervical spine surgeries with 2 [address] Torres 10 and 11 years ago. And for more done with Dr. Seo at [facility] in January, February, April 2021 and again in October 2021. chronic neck and back pain DVT (2012) History of Any Multi-Drug Resistant Organisms: None Reported Past Surgical History: Section, Hysterectomy Additional Past Surgical History / Comment(s): neck surgeryx6 , L foot, L leg thrombectomy, Lap Band Past Psychological History: Anxiety, Depression Smoking Status: Former smoker Past Alcohol Use History: None Reported Past Drug Use History: None Reported - Past Family History Father Family Medical History: Hyperlipidemia Medications and Allergies Home Medications Medication Instructions Recorded Confirmed Type Celecoxib [CeleBREX] 200 mg PO DAILY 11/06/20 01/02/22 History Calcium Carbonate [Calcium] 600 mg PO DAILY 01/03/21 01/02/22 History DULoxetine HCL [Cymbalta] 30 mg PO DAILY 01/02/22 01/02/22 History traZODone HCL [Desyrel] 100 mg PO BID 01/02/22 01/02/22 History Allergies Allergy/AdvReac Type Severity Reaction Status Date / Time No Known Allergies Allergy Verified 01/02/22 07:02 Physical Examination Osteopathic Statement: *. No significant issues noted on an osteopathic structural exam other than those noted in the History and Physical/Consult. - C Spine: dermatomal strength & reflexes bilateral Shoulder strength: flexion: 4/5 (At her posterior and anterior cervical spine she has multiple incisions which appear to be healed well. Her head is held in a flexed position. Her upper extremities globally have about 4 out of 5 strength. There is no clonus. There is negative Luis Manuel's. There is no hyperreflexia) - L Spine: dermatomal strength & reflexes bilateral Strength: hip flexion: 5/5 (With her leg she is has good active and passive range of motion without pain. Negative straight leg raise. She has 5-5 hip flexion on the right but 4 out of 5 on the left. Her sensation is intact globally except for the bottom of her left foot feels slightly numb to her. She has sustained clonus) Results - Labs Labs: Abnormal Lab Results - Last 24 Hours (Table) 01/02/22 01/02/22 Range/Units 02:18 06:10 BUN 19 H (7-17) mg/dL Glucose 125 H (74-99) mg/dL JAYA Screen POSITIVE A (NEGATIVE) H & H 01/02/22 Range/Units 02:18 Hgb 14.7 (11.4-16.0) gm/dL Hct 44.7 (34.0-46.0) % Coagulation 01/02/22 Range/Units 02:18 INR 0.9 (<1.2) Result Diagrams: 01/02/22 02:18 01/02/22 02:18 - Diagnostic results CT scan - cervical: report reviewed (She has new anterior cervical decompression and fusion at C7-T1. The hardware appears to be intact throughout her cervical spine. I do not see evidence of significant stenosis or any failed hardware. She does have kyphosis at her cervicothoracic junction.), image reviewed CT Scan - lumbar: report reviewed (I reviewed the thoracic and lumbar CT as well . I agree that there is evidence of stenosis and foraminal stenosis at L1-2 and at L34 and L4 5. She has significant facet arthrosis. I do not see any fracture.), image reviewed (I reviewed the new computed tomography scan of the cervical spine as well as the thoracic and lumbar spine. I also reviewed the cervical CT scan from October of this year. She has multiple changes at her cervical spine with posterior cervical fusion from C3 to T1. She has a new anterior cervical deco) Assessment and Plan Assessment: Gait abnormality with frequent falls History of multiple cervical spine surgeries and likely history of myelopathy Some mild left lower extremity weakness Chronic bilateral upper extremity weakness with history of multiple surgical spine surgeries Surgical surgeries which appeared stable Likely history of myelopathy Recent left foot injury due to falls Recent history of ulcerative colitis Plan: Gait abnormality with frequent falls History of multiple cervical spine surgeries and likely history of myelopathy Some mild left lower extremity weakness Chronic bilateral upper extremity weakness with history of multiple surgical spine surgeries Surgical surgeries which appeared stable Likely history of myelopathy Recent left foot injury due to falls Recent history of ulcerative colitis It is quite difficult to ascertain the nature of the patient's issues. She has having significant unsteadiness when she tries to get up as she feels her legs are not acting appropriately. When she is in bed she seems to have good strength and just mild hip flexion weakness on the left. She has 55 strength with dorsiflexion plantarflexion bilaterally. She has some numbness at the bottom of her left foot but otherwise no significant numbness. There is no pain with internal/external rotation of her hips. She is nontender over her legs. She has some tenderness over her left foot with recent injury. There is no cre pitus. She is not having any new abdominal pain. She denies any changes in her bowel bladder function. With her lower extremity symptoms and sustained clonus I think that we need to obtain further imaging of her spine. She has had multiple surgeries at her cervical spine as stated above. She has never had any issues with her lowe but she does seem to report some issues of myelopathy from her cervical spine hence her multiple surgeries. I think that we need new MRIs of her cervical thoracic and lumbar spine for complete evaluation. It is okay for her to try to ambulate with therapy. She may have some benefit with his course of steroids if it is okay with medicine. In terms of her cervical spine and I do not have acute plans for further surgical intervention. I like to have better evaluation and imaging of her whole spine to see if there is further treatment be recommended. Time with Patient: Greater than 30
--- NOTE | 2022-01-02 17:31 | P.PN ---
Subjective Progress Note Date: 01/02/22 Hospital course: The patient is a very pleasant 66-year-old female with a past medical history of previous DVT, anxiety, depression, chronic neck pain with cervical DJD, status post 4 cervical spinal surgeries, most recently October 2021 completed at [facility] by Dr. Lucero. Patient presented to the emergency room with complaints of bilateral upper and lower extremity weakness resulting in multiple falls. Patient reports this has been a gradual decline over the past 2 months. Patient reports neck pain is at her chronic baseline and denies any worsening in her changes on this pain. She does report having lower back pain which she reports is slightly worsened than her typical chronic pain. Patient denies having any involuntary loss of bowel or bladder denies having any saddlebag anesthesias. Patient reports bilateral lower extremity sensation remains intact and unchanged, but states they're equally weak and will suddenly give out upon standing without any notice. The patient has been admitted under the services with consultation orthospine surgery team. Attempts have been made to contact surgeon (Dr. Lucero) at [facility] in [place], spoke with staff and messages were left and awaiting callback from patient's spinal surgeon. CT cervical, thoracic, lumbar spine to be completed. Physical examination: Patient seen in place evaluated at bedside this morning. She reports slight improvement in bilateral upper extremity weakness but does report continued lower extremity weakness along with lower lumbar back pain. Patient denies having any numbness or loss of sensation. She continues to deny having any involuntary loss of bowel or bladder or any other complaints at this time. General: non toxic, no distress, appears at stated age, normal weight Derm: no unusual rashes/lesions, warm Head: atraumatic, normocephalic, symmetric Eyes: EOMI, no lid lag, anicteric sclera ENT: Nose and ears atraumatic Neck: No cervical lymphadenopathy, trachea midline, supple Mouth: no lip lesion, mucus membranes moist Cardiovascular: S1S2 reg, no murmur, positive dorsalis pedis pulse bilateral, no edema Lungs: CTA bilateral, no rhonchi, no rales, no accessory muscle use Abdominal: soft, nontender to palpation, no guarding Ext: Muscle strength 3/5 in bilateral lower extremities and 4/5 strength in bilateral upper extremities. No gross muscle atrophy, no contractures, Neuro: CN II-XI grossly intact, no gross focal neuro deficits Psych: Alert, oriented, appropriate affect Assessment/plan Diffuse weakness with multiple falls Long-standing history of chronic neck pain with cervical degenerative disc disease status post for surgical spinal surgeries most recently 10/2021 -CT cervical, thoracic, and lumbar spine to be completed. -Orthospine surgery consulted -Attempts made to contact patient's primary orthospine surgeon Dr. Lucero at [facility] in [place], spoke with staff and messages were left and awaiting callback from patient's spinal surgeon. -CRP negative at less than 0.30 and ESR 4. -PT/OT consult -Fall precautions -Neuro checks History of DVT -DVT prophylaxis with heparin History of anxiety and depression -Continue daily medication regimen with Cymbalta and trazodone CODE STATUS: Full Code DVT prophylaxis: Heparin Discussed with: Patient Anticipated discharge date: 1-[address]: Home A total of 38 minutes was spent on the care of this complex patient more than 50% of the time was spent in counseling and care coordination. Laron Damon NP rendered care for this patient independently, reviewed the findings and plan as documented in the note above. I did not physically speak with or examine the patient on this date. Objective - Vital Signs Vital signs: Vital Signs Temp 97.8 F 01/02/22 07:19 Pulse 67 01/02/22 07:19 Resp 18 01/02/22 07:19 BP 136/74 01/02/22 07:19 Pulse Ox 95 01/02/22 07:19 FiO2 Intake & Output 01/01/22 01/02/22 01/02/22 18:59 06:59 18:59 Intake Total 150 Balance 150 Weight 63.503 kg Intake: Oral 150 Other: Voiding Method Toilet - Labs CBC & Chem 7: 01/02/22 02:18 01/02/22 02:18 Labs: Abnormal Lab Results - Last 24 Hours (Table) 01/02/22 Range/Units 02:18 BUN 19 H (7-17) mg/dL Glucose 125 H (74-99) mg/dL
[2022-01-02] MEDS: DEXAMETHASONE SOD PHOSPHATE 4 MG/ML 1 ML VIAL IVP SCH ×2 (17:57→23:31)
[2022-01-02] MEDS: traZODone HCL 100 MG TAB PO SCH (20:03)
[2022-01-03] MEDS: DEXAMETHASONE SOD PHOSPHATE 4 MG/ML 1 ML VIAL IVP SCH ×4 (05:18→23:15)
[2022-01-03] MEDS: ACETAMINOPHEN TAB 325 MG TAB PO PRN (05:44)
--- NOTE | 2022-01-03 07:46 | P.PN ---
Progress Note - Text Progress Note Date: 01/03/22 The patient is seen and examined this morning. She is not reporting any pain. She feels her legs are making some improvement. She feels a lot more comfortable walking with a walker and much more steady. She denies any new issues. On exam she has sustained dorsal flexion plantarflexion and EHL. She is able lift her legs up off the bed independently and is slightly weak with left hip flexion at 4 out of 5 her thighs and calves soft nontender. She has sustained clonus at her bilateral lower extremities. Her upper extremities do not have hyperreflexia. Assessment and plan Gait abnormality with frequent falls History of cervical myelopathy with multiple cervical spinal surgeries Lumbar stenosis Left lower extremity mild proximal weakness Bilateral lower extremity clonus Patient feels that she is making some progress with her mobility with medical management thus far. Anexsia she does with further physical therapy to make sure she is steady and safe with her mobility before she would be discharged home. She is scheduled for her MRI today I think that would help with determ ining the level of stenosis at her lumbar spine and get new evaluation an update for her cervical spine given her multiple surgeries and likely history of myelopathy. For now she should continue with conservative management, medication and possibly consider oral tapering steroid for discharge. She should also continue with her therapy and we have written a prescription for a walker for home use for her.
[2022-01-03] MEDS: traZODone HCL 100 MG TAB PO SCH ×2 (09:14→21:40)
[2022-01-03] MEDS: DULoxetine HCL 30 MG CAPSULE.DR PO SCH (09:14)
[2022-01-03] MEDS: CALCIUM CARBONATE 500 MG CHEWABLE PO SCH (09:14)
[2022-01-03] MEDS: MELOXICAM 7.5 MG TAB PO SCH (09:14)
[2022-01-03] MEDS: HEPARIN SODIUM,PORCINE/PF 5,000 UNIT/0.5 ML SYRINGE SQ SCH ×3 (09:17→23:16)
[2022-01-03 10:16] LABS: HCT 48.9 % (37.2-46.3); HGB 15.3 g/dL (12.0-15.0); MCH 27.2 pg (27.0-32.0); MCHC 31.3 g/dL (32.0-37.0); MCV 86.9 fL (80.0-97.0); NRBC Per 100 WBC 0 /100 WBCS (0.0-0.0); Platelet Count 226 X 10*3/uL (140-440); RBC 5.63 X 10*6/uL (4.10-5.20); RDW 12.8 % (11.5-14.5); WBC 6.52 X 10*3/uL (4.50-10.00)
[2022-01-03 10:32] LABS: African American GFR (CKD) 95.2 (60.0-200.0); Albumin 4.2 g/dL (3.8-4.9); Albumin/Globulin Ratio 1.77 (1.60-3.17); Anion Gap 13.1 mmol/L (10.00-18.00); BUN/Creat Ratio 15.11 Ratio (12.00-20.00); Blood Urea Nitrogen 11.3 mg/dL (9.0-27.0); Calcium 9.4 mg/dL (8.7-10.3); Carbon Dioxide 22.2 mmol/L (20.0-27.5); Globulin 2.4 g/dL (1.6-3.3); Magnesium 2.2 mg/dL (1.5-2.4); Non-African American GFR(CKD) 82.2 (60.0-200.0); Potassium 4.1 mmol/L (3.5-5.5); Total Bilirubin 0.6 mg/dL (0.30-1.20); Total Protein 6.5 g/dL (6.2-8.2)
--- NOTE | 2022-01-03 10:47 | P.CNNES ---
History of Present Illness Consult date: 01/03/22 Requesting physician: Inez Turcios Reason for Consult: multiple falls with lower extremity dysfunction, hx of cervical myleopathy History of Present Illness: This is a 66-year-old woman with medical history of chronic neck pain with signficant cervical spondlyosis with multiple neck surgeries (total of 6) and last one was in Oct 29 2021, recurrent falls, DVT who presented to our facility because of recurrent falls. Patient stated that since her recent surgery on 10/29/2021 she's been having worsening of falls. She stated that she had her latest neck surgery by Dr. Lucero in Oct 29 2021 at [facility] and has noticed recurrent falls. She feels her legs are giving out. She had falls prior to her latest neck surgery but worsened after latest surgery. She denies of feeling light headed or dizziness. Denies loss of consciousness with there falls. Denies any urinary or bowel incontinence. She states she would have urine accidents if unable to make to bathroom on time. She denies of any new focal weakness or numbness. She uses a walker. She resides with her husbands. She had [address] Lucero on her neck and prior to that had 2 prior surgeries with someone else. She had EMG with [facility] as outpatient regarding her issues prior to surgery and does not know the result. Of notes she notices after some of her surgeries on her neck in past she had new numbness over the right ulnar distribution and then a different surgery she noticed left hand numbness. Some of the work-up in our facility during this hospital visit consisted of: CT cervical thoracic and lumbar is reported as multilevel disc degeneration changes throughout the spine with multilevel disc osteophyte complex with at least mild spinal canal stenosis. This results in the LEs as severe bilateral neuroforaminal stenosis at L1-L2 and moderate L2-L3. Postsurgical changes of the cervical spine with hardware intact at. Moderate to severe right C7-T1 neuroforaminal stenosis. No evidence for acute fracture. Grade 1 antral lithiasis of L4 on L5 and L5 on S1 without spondylolysis. Review of Systems Review of system: The 12 point system was reviewed and apparent positive and negative per HPI. Past Medical History Past Medical History: Deep Vein Thrombosis (DVT), Musculoskeletal Disorder Additional Past Medical History / Comment(s): Multiple cervical spine surgeries with 2 of [address] Torres 10 and 11 years ago. And for more done with Dr. Seo at [facility] [place] in January, February, April 2021 and again in October 2021. chronic neck and back pain DVT (2012) History of Any Multi-Drug Resistant Organisms: None Reported Past Surgical History: Section, Hysterectomy Additional Past Surgical History / Comment(s): neck surgeryx6 , L foot, L leg thrombectomy, Lap Band Past Psychological History: Anxiety, Depression Smoking Status: Former smoker Past Alcohol Use History: None Reported Past Drug Use History: None Reported - Past Family History Father Family Medical History: Hyperlipidemia Medications and Allergies Home Medications Medication Instructions Recorded Confirmed Type Celecoxib [CeleBREX] 200 mg PO DAILY 11/06/20 01/02/22 History Calcium Carbonate [Calcium] 600 mg PO DAILY 01/03/21 01/02/22 History DULoxetine HCL [Cymbalta] 30 mg PO DAILY 01/02/22 01/02/22 History traZODone HCL [Desyrel] 100 mg PO BID 01/02/22 01/02/22 History Allergies Allergy/AdvReac Type Severity Reaction Status Date / Time No Known Allergies Allergy Verified 01/02/22 07:02 Physical Examination - Vital Signs Vital Signs: Vital Signs Temp Pulse Resp BP Pulse Ox 01/03/22 07:17 97.5 F L 69 16 146/82 96 01/03/22 01:13 97.8 F 71 16 141/82 93 L 01/02/22 19:11 98.6 F 62 18 155/70 94 L 01/02/22 13:52 98.2 F 58 L 16 143/81 96 Intake and Output 01/02/22 01/03/22 01/03/22 22:59 06:59 14:59 Other: Voiding Method Toilet Toilet # Voids 2 1 GENERAL: The patient is lying in bed and is not in acute distress. HENT: Has long scar on posterior neck region. CHEST: The heart rate is regular rate rhythm. No murmurs to auscultation. LUNG: Clear to auscultation bilaterally no wheezing noted throughout. Not labored breathing. ABDOMEN/GI: Bowel sounds present in all 4 quadrants. No tenderness to palpation throughout. NEUROLOGICAL: Higher mental function: The patient is awake, alert, oriented to self, place and time. Patient is following commands. No aphasia and no neglect. Cranial nerves: The pupils are round, equal and reactive to light and accommodation. Visual oneil are full to confrontation throughout. Extraocular movement is intact no nystagmus is noted. Facial sensation is normal to touch throughout. The facial strength is normal throughout. Hearing is mildly decreased bilaterally to hand rub. Tongue is midline and moved [id number] without any difficulty. No dysarthria is noted. Shoulder shrug is normal bilaterally. Motor: The strength is bilateral hand market analyst is 4-4+. Left forearm extension is 4 while right is 4+. Forearm Flexion b/l is 4+ to 5-. proximal is 4+ to 5- (better right than left). Lowers are 5- except left ankle is hard to assess because of her pain (patient stated has old weakness/fracture over the left ankle). Normal tone and bulk. Cerebellum: Normal finger to nose bilaterally. Sensation: Sensation is normal to touch throughout. Reflexes (right/left): 3+ over brachioradialis, patellar and ankles. Otherwise upper are 2-3.. Plantars are mute bilaterally. Results - Laboratory Findings CBC and BMP: 01/02/22 02:18 01/02/22 02:18 Abnormal Lab Findings: Abnormal Labs 01/02/22 01/02/22 02:18 06:10 BUN 19 H Glucose 125 H JAYA Screen POSITIVE A Assessment and Plan Assessment: Recurrent falls that is worse since had her recent neck surgery on 10/29/2021. I feel her falls are due to her chronic myelopathy and component of lumbar stensosis. Chronic neck pain and had total of 6 surgeries (last on 10/29/2021). Cervical myelopathy Lumbar stenosis Old left ankle fracture Plan: MRI of the cervical and lumbar R ordered by the orthopedic surgeon seen. Physical therapy and occupation therapy are consulted Currently she is on dexamethasone 4 mg every 6 hours and we'll defer the pain medication to the primary team. Orthopedic team is on board The plan was discussed with the patient, primary team as well as her nurse. Thank you for the consultation. Daniel Farooq M.D. Neuro-hospitalist Time with Patient: Greater than 30
--- NOTE | 2022-01-03 16:47 | P.PN ---
Subjective Progress Note Date: 01/03/22 Hospital course: The patient is a very pleasant 66-year-old female with a past medical history of previous DVT, anxiety, depression, chronic neck pain with cervical DJD, status post 4 cervical spinal surgeries, most recently October 2021 completed at [facility] by Dr. Lucero. Patient presented to the emergency room with complaints of bilateral upper and lower extremity weakness resulting in multiple falls. Patient reports this has been a gradual decline over the past 2 months. Patient reports neck pain is at her chronic baseline and denies any worsening in her changes on this pain. She does report having lower back pain which she reports is slightly worsened than her typical chronic pain. Patient denies having any involuntary loss of bowel or bladder denies having any saddlebag anesthesias. Patient reports bilateral lower extremity sensation remains intact and unchanged, but states they're equally weak and will suddenly give out upon standing without any notice. The patient has been admitted under the services with consultation orthospine surgery team. Attempts have been made to contact surgeon (Dr. Lucero) at [facility] in [place], spoke with staff and messages were left and awaiting callback from patient's spinal surgeon. CT cervical, thoracic, lumbar spine revealing postsurgical changes of the cervical spine with hardware intact, moderate to severe right C7 through T1 neural foraminal stenosis, grade 1 anterolisthesis of L4 on L5 and L5 through S1, and multilevel disc degenerative changes throughout the spine with multilevel disc osteophyte complex resulting in mild spinal canal stenosis and severe foraminal stenosis at L1 through L2 and moderate foraminal stenosis at L2 through L3. Physical examination: Patient seen in place evaluated at bedside this morning. Condition remains unchanged. received callback from patient's orthospine surgeon, Dr. Lucero and updated him on CT results and pending MRI. Patient's orthospine surgeon is arranging for transfer to [facility] in [place]. Patient scheduled to undergo MRI later today. She continues to deny having any involuntary loss of bowel or bladder, patient does report long-term history of urgency resulting in episodes of incontinence but denies involuntary loss of bladder. She continues to deny having any numbness but does report continued weakness. General: non toxic, no distress, appears at stated age, normal weight Derm: no unusual rashes/lesions, warm Head: atraumatic, normocephalic, symmetric Eyes: EOMI, no lid lag, anicteric sclera ENT: Nose and ears atraumatic Neck: No cervical lymphadenopathy, trachea midline, supple Mouth: no lip lesion, mucus membranes moist Cardiovascular: S1S2 reg, no murmur, positive dorsalis pedis pulses bilaterally, no edema Lungs: CTA bilateral, no rhonchi, no rales, no accessory muscle use Abdominal: soft, nontender to palpation, no guarding Ext: Muscle strength 3/5 in bilateral lower extremities and 4/5 strength in bilateral upper extremities. No gross muscle atrophy, no contractures, Neuro: CN II-XI grossly intact, no gross focal neuro deficits Psych: Alert, oriented, appropriate affect Assessment/plan Diffuse weakness with multiple falls Long-standing history of chronic neck pain with cervical degenerative disc disease status post for surgical spinal surgeries most recently 10/2021 Severe bilateral foraminal stenosis at L1-2 and moderate L2-3, moderate to se armaan foraminal stenosis at C7 to T1 -Orthospine surgery --Recs appreciated, would like patient to continue to follow with Dr. Lucero, ordered MRI which is currently pending - decadron -Attempts made to contact patient's primary orthospine surgeon Dr. Lucero at [facility] in [place], spoke with staff and messages were left and a waiting callback from patient's spinal surgeon. -CRP negative at less than 0.30 and ESR 4. -PT/OT consult -Fall precautions -Neuro checks History of DVT -DVT prophylaxis with heparin History of anxiety and depression -Continue daily medication regimen with Cymbalta and trazodone CODE STATUS: Full Code DVT prophylaxis: Heparin Discussed with: Patient Anticipated discharge date: clinical course to determine Anticipated discharge place: transfer arrangements being made to [facility] in [place] A total of 34 minutes was spent on the care of this complex patient more than 50% of the time was spent in counseling and care coordination. Laron Damon NP rendered care for this patient independently, reviewed the findings and plan as documented in the note above. I did not physically speak with or examine the patient on this date. Amended as noted in blue Objective - Vital Signs Vital signs: Vital Signs Temp 97.5 F L 01/03/22 07:17 Pulse 69 01/03/22 07:17 Resp 16 01/03/22 07:17 BP 146/82 01/03/22 07:17 Pulse Ox 96 01/03/22 07:17 FiO2 Intake & Output 01/02/22 01/03/22 01/03/22 18:59 06:59 18:59 Other: Voiding Method Toilet # Voids 1 1 - Labs CBC & Chem 7: 01/03/22 05:08 01/03/22 05:08 Labs: Abnormal Lab Results - Last 24 Hours (Table) 01/02/22 Range/Units 06:10 JYAA Screen POSITIVE A (NEGATIVE)
[2022-01-03] MEDS: MELATONIN 5 MG TABLET PO PRN (23:16)
[2022-01-04] MEDS: DEXAMETHASONE SOD PHOSPHATE 4 MG/ML 1 ML VIAL IVP SCH ×3 (05:39→18:21)
[2022-01-04] MEDS: traZODone HCL 100 MG TAB PO SCH ×2 (10:11→21:28)
[2022-01-04] MEDS: DULoxetine HCL 30 MG CAPSULE.DR PO SCH (10:11)
[2022-01-04] MEDS: CALCIUM CARBONATE 500 MG CHEWABLE PO SCH (10:11)
[2022-01-04] MEDS: HEPARIN SODIUM,PORCINE/PF 5,000 UNIT/0.5 ML SYRINGE SQ SCH ×2 (10:11→16:51)
[2022-01-04] MEDS: MELOXICAM 7.5 MG TAB PO SCH (10:12)
--- NOTE | 2022-01-04 12:57 | P.PN ---
Progress Note - Text Progress Note Date: 01/04/22 Orthopedic spine: History of present illness: Patient is a very pleasant 66-year-old female who is seen and examined at bedside for follow-up evaluation in regards to her spine. Patient states she continues to improve over the past couple days. She is ambulating better with the assistance of a walker. She is not currently complaining of any lower extremity radiculopathy bilaterally. She does feel generally weaker lower extremities with weakness on the left. She continues experience chronic numbness of the hands bilaterally which has not changed. She did sustain an injury to her left foot on one of her recent falls. MRI imaging of the cervical spine, thoracic spine, and lumbar spine were ordered on 01/02/2022. This imaging has not yet been performed. She is known to have undergone multiple surgical interventions at her cervical s pine with her most recent surgery on 10/29/2021. Her most recent surgical intervention was an anterior cervical decompression and fusion at C7-T1. She has undergone a total of 6 surgeries at her cervical spine. She initially had [address] Torres in [place] and then had [address] Jordan Lucero at [facility]. Patient states she talked to Dr. Lucero yesterday and the patient states he is considering transferring her to his service following the completion of her MRI imaging. I have been told he does have staffing privileges at [facility]. Nursing also states the patient may be transferred following completion of MRI imaging. If the patient is transferred, this would be initiated and completed by medicine. Patient states she is undergone multiple surgeries at her cervical spine he would like to avoid further surgery if she is able to do so. Patient feels she has gone through a lot recently and would like to be discharged home she can think about her next plan of care proceeding forward. She is eating and voiding without difficulty. Physical exam: Patient is awake, alert, and oriented 3 Vital signs stable Good chest excursion with deep inspiration and expiration Examination of cervical spine reveals skin is intact with no abrasions, lacerations, or bruises; no erythema, purulence or signs of infection Evidence of a large well-healed incision over the posterior cervical spine and 2 well-healed incisions over the anterior cervical spine Her head is in a flex forward position Upper extremity strength is 4/5 globally Negative Browning's sign bilateral upper extremities Dorsiflexion, plantarflexion, and extensor hallucis longus positive sustained bilaterally Sustained clonus bilateral lower extremities Some pain on palpation over the left foot Patient is able to perform active range of motion of the bilateral lower extremities but has weakness with left hip flexion Patellar reflex 4/4 bilaterally No signs or symptoms of DVT; no calf pain No pain with internal and external rotation of the hips bilaterally Assessment: Generalized lower extremity weakness History of multiple falls at home Unsteady gait History of 6 surgical interventions at the cervical spine with most recent surgery performed on 10/29/2021 Likely cervical myelopathy Chronic upper extremity weakness Chronic bilateral hand numbness Recent left foot injury, improving Left lower extremity radiculopathy Sustained clonus bilateral lower extremities Bilateral patellar hyperreflexia History of DVT Plan: 1. Patient has recently been sustaining multiple falls at home with unsteady gait and feels like her legs are not working appropriately. This has been improving over the past couple days. She is mobilizing better with the assistance of a walker. Patient does have a significant medical history which includes 6 separate surgical interventions at her cervical spine. Her last 4 surgeries have been performed by Dr. Lucero. Patient states she has been in contact with him and actually talked to him yesterday. Currently, MRI of the cervical spine, thoracic spine, and lumbar spine has been ordered. These have not yet been performed. According to the patient and nursing, following completion of this MRI imaging patient may be planning to be transferred to Dr. Lucero's care at another facility. Patient would be willing to except this transfer. Patient does state she would like to avoid further surgical intervention at her cervical spine. She also states if cleared, she would prefer to be discharged home so she can discuss things further with her family. We did discuss we would not plan for further surgical intervention at her cervical spine and this should be handled by Dr. Lucero. We did discuss further if she had changes at her thoracic or lumbar spine we could discuss further treatment options. At this time, patient does feel she has had improvement during her admission and would like to continue with conservative treatment and avoid further surgery at this time. We would recommend she continue utilizing a walker to aid in ambulation. We also did discuss patient may be transferred to a tertiary facility for further treatment by Dr. Lucero and that this transfer would be handled by medicine. If the patient would need acute surgical intervention in regards to her thoracic or lumbar spine, we also discussed that we would plan for transfer to a tertiary facility as as Dr. Mando Turcios is currently out of town and will return this coming 01/07/2022. Patient states he does agree with this plan and would like to continue conservative treatment at this time. This plan of care was discussed with nursing as well. Patient is encouraged to continue working with physical therapy and utilize a walker or other aid to aid in ambulation as needed. 2. Patient will continue to be seen and examined by medicine
--- NOTE | 2022-01-04 13:32 | P.PN ---
Subjective Progress Note Date: 01/04/22 The patient is seen at bedside and feels about the same. Objective - Vital Signs Vital signs: Vital Signs Temp 98.2 F 01/04/22 08:00 Pulse 53 L 01/04/22 08:00 Resp 16 01/04/22 08:00 BP 130/68 01/04/22 08:00 Pulse Ox 95 01/04/22 08:00 FiO2 Intake & Output 01/03/22 01/04/22 01/04/22 18:59 06:59 18:59 Intake Total 118 Balance 118 Intake: Oral 118 Other: Voiding Method Toilet # Voids 1 2 # Bowel Movements 0 - Exam GENERAL: The patient is lying in bed and is not in acute distress. NEUROLOGICAL: Higher mental function: The patient is awake, alert, oriented to self, place and time. Patient is following commands. No aphasia and no neglect. Cranial nerves: The pupils are round, equal and reactive to light and accommodation. Visual oneil are full to confrontation throughout. Extraocular movement is intact no nystagmus is noted. Facial sensation is normal to touch throughout. The facial strength is normal throughout. Hearing is mildly decreased bilaterally to hand rub. Tongue is midline and moved [id number] without any difficulty. No dysarthria is noted. Shoulder shrug is normal bilaterally. Motor: The strength is bilateral hand bioinformaticist is 4-4+. Left forearm extension is 4 while right is 4+. Forearm Flexion b/l is 4+ to 5-. proximal is 4+ to 5- (better right than left). Lowers are 5- except left ankle is hard to assess because of her pain (patient stated has old weakness/fracture over the left ankle). Normal tone and bulk. Cerebellum: Normal finger to nose bilaterally. Sensation: Sensation is normal to touch throughout. Reflexes (right/left): 3+ over brachioradialis, patellar and ankles. Otherwise upper are 2-3.. Plantars are mute bilaterally. - Labs CBC & Chem 7: 01/03/22 05:08 01/03/22 05:08 Assessment and Plan Assessment: Recurrent falls that is worse since had her recent neck surgery on 10/29/2021. I feel her falls are due to her chronic myelopathy and component of lumbar stensosis. Chronic neck pain and had total of 6 surgeries (last on 10/29/2021). Cervical myelopathy Lumbar stenosis Old left ankle fracture Plan: MRI of the cervical and lumbar ordered by the orthopedic surgeon seen and pending. Physical therapy and occupation therapy are consulted Currently she is on dexamethasone 4 mg every 6 hours and we'll defer the pain medication to the primary team. Orthopedic team is on board The plan was discussed with the patient, primary team as well as her nurse. Recommend patient to follow-up with neurosurgeon as outpatient. She stated she will consider a second neurosurgeon opinion as outpatient. The plan is discussed with the patient and his nurse. Otherwise no additional work-up besides above. Daniel Farooq M.D. Neuro-hospitalist Time with Patient: Less than 30
--- NOTE | 2022-01-04 16:07 | P.PN ---
Subjective Progress Note Date: 01/04/22 Hospital course: The patient is a very pleasant 66-year-old female with a past medical history of previous DVT, anxiety, depression, chronic neck pain with cervical DJD, status post 4 cervical spinal surgeries, most recently October 2021 completed at [facility] by Dr. Lucero. Patient presented to the emergency room with complaints of bilateral upper and lower extremity weakness resulting in multiple falls. Patient reports this has been a gradual decline over the past 2 months. Patient reports neck pain is at her chronic baseline and denies any worsening in her changes on this pain. She does report having lower back pain which she reports is slightly worsened than her typical chronic pain. Patient denies having any involuntary loss of bowel or bladder denies having any saddlebag anesthesias. Patient reports bilateral lower extremity sensation remains intact and unchanged, but states they're equally weak and will suddenly give out upon standing without any notice. The patient has been admitted under the services with consultation orthospine surgery team. Attempts have been made to contact surgeon (Dr. Lucero) at [facility] in [place], spoke with staff and messages were left and awaiting callback from patient's spinal surgeon. CT cervical, thoracic, lumbar spine revealing postsurgical changes of the cervical spine with hardware intact, moderate to severe right C7 through T1 neural foraminal stenosis, grade 1 anterolisthesis of L4 on L5 and L5 through S1, and multilevel disc degenerative changes throughout the spine with multilevel disc osteophyte complex resulting in mild spinal canal stenosis and severe foraminal stenosis at L1 through L2 and moderate foraminal stenosis at L2 through L3. Physical examination: Patient seen in place evaluated at bedside this morning. Condition remains unchanged. Tentative plan is for patient's transfer to [facility] into care of Dr. Lucero her primary orthospine surgeon. This is to be initiated once MRI is completed. Patient awaiting MRI to be completed at this time. General: non toxic, no distress, appears at stated age, normal weight Derm: no unusual rashes/lesions, warm Head: atraumatic, normocephalic, symmetric Eyes: EOMI, no lid lag, anicteric sclera ENT: Nose and ears atraumatic Neck: No cervical lymphadenopathy, trachea midline, supple Mouth: no lip lesion, mucus membranes moist Cardiovascular: S1S2 reg, no murmur, positive dorsalis pedis pulses bilaterally, no edema Lungs: CTA bilateral, no rhonchi, no rales, no accessory muscle use Abdominal: soft, nontender to palpation, no guarding Ext: Muscle strength 3/5 in bilateral lower extremities and 4/5 strength in bilateral upper extremities. No gross muscle atrophy, no contractures, Neuro: CN II-XI grossly intact, no gross focal neuro deficits Psych: Alert, oriented, appropriate affect Assessment and plan of care Diffuse weakness with multiple falls Long-standing history of chronic neck pain with cervical degenerative disc disease status post for surgical spinal surgeries most recently 10/2021 -CT cervical, thoracic, and lumbar spine to be completed. -Orthospine surgery consulted -Dr. Lucero at [facility] in [place], making arrangements for patient's transfer to their facility once MRI is completed -CRP negative at less than 0.30 and ESR 4. -PT/OT consult -Fall precautions -Neuro checks History of DVT -DVT prophylaxis with heparin History of anxiety and depression -Continue daily medication regimen with Cymbalta and trazodone CODE STATUS: Full Code DVT prophylaxis: Heparin Discussed with: Patient Anticipated discharge date: clinical course to determine Anticipated discharge place: transfer arrangements being made to [facility] in [place] A total of 30 minutes was spent on the care of this complex patient more than 50% of the time was spent in counseling and care coordination. Objective - Vital Signs Vital signs: Vital Signs Temp 97.8 F 01/04/22 14:00 Pulse 54 L 01/04/22 14:00 Resp 18 01/04/22 14:00 BP 112/68 01/04/22 14:00 Pulse Ox 96 01/04/22 14:00 FiO2 Intake & Output 01/03/22 01/04/22 01/04/22 18:59 06:59 18:59 Intake Total 118 Balance 118 Intake: Oral 118 Other: Voiding Method Toilet # Voids 1 2 # Bowel Movements 0 - Labs CBC & Chem 7: 01/03/22 05:08 01/03/22 05:08
[2022-01-04] MEDS: MELATONIN 5 MG TABLET PO PRN (21:28)
--- NOTE | 2022-01-04 21:58 | MR ---
EXAMINATION TYPE: MR cspine/tspine/lspine wo con DATE OF EXAM: 01/04/2022 COMPARISON: None HISTORY: Cervical spine surgery. Weakness. TECHNIQUE: Multiplanar, multisequence imaging of the cervical thoracic and lumbar spine with no contr ast. FINDINGS: Cervical spine. There are cervical mild kyphotic deformity. There is previous anterior fusion surgery with metal josiah fact from C4 to T1. Detail limited by metal artifact. No definite spinal stenosis. There is C7-T1 sub luxation deformity. The brainstem appears intact. No sign of focal bone destruction. Spinal canal dif ficult to evaluate because of metal artifact but no obvious spinal stenosis. No cervical paraspinal m ass. IMPRESSION: Multilevel fusion surgery. Kyphotic deformity. No obvious spinal stenosis. No fracture. Thoracic spine. The thoracic vertebra have fairly normal alignment. No compression fracture. At T10-11 there is poste rior disc herniation and facet arthropathy with resultant moderate spinal stenosis. There is flatteni ng of the thoracic spinal cord. Spinal canal narrowed to 5 mm. There is a mild posterior disc bulging at T7-8 and T8-9 without significant spinal stenosis. No thora cic paraspinal mass. Posterior elements are intact. IMPRESSION: There is moderately severe spinal stenosis at T10-11 due to posterior disc herniation and facet arthr opathy. No compression fracture. Lumbar spine. The lumbar vertebrae have fairly normal alignment. There is some minimal subluxation at L4-5. Posteri or elements are intact. No compression fracture. There is minimal subluxation also at L5-S1. Lumbar n erve roots appear fairly normal. There is left and right side L4-5 neural foraminal narrowing due to the subluxation and facet arthropathy. No evidence of focal bone destruction. Sacroiliac joints are intact. IMPRESSION: Mild degenerative subluxation at L4-5 and L5-S1. No lumbar spinal stenosis. Mild neural foraminal cassy rowing at L4-5.
[2022-01-05] MEDS: DEXAMETHASONE SOD PHOSPHATE 4 MG/ML 1 ML VIAL IVP SCH ×2 (02:10→05:53)
[2022-01-05] MEDS: HEPARIN SODIUM,PORCINE/PF 5,000 UNIT/0.5 ML SYRINGE SQ SCH ×2 (02:10→08:17)
[2022-01-05 07:47] VITALS: BP 169/75; PULSE 51; RESP 16; TEMP 98.5
[2022-01-05] MEDS: ACETAMINOPHEN TAB 325 MG TAB PO PRN (07:52)
[2022-01-05] MEDS: CALCIUM CARBONATE 500 MG CHEWABLE PO SCH (08:17)
[2022-01-05] MEDS: DULoxetine HCL 30 MG CAPSULE.DR PO SCH (08:17)
[2022-01-05] MEDS: traZODone HCL 100 MG TAB PO SCH (08:17)
[2022-01-05] MEDS: MELOXICAM 7.5 MG TAB PO SCH (08:17)
--- NOTE | 2022-01-05 12:58 | P.PN ---
Subjective Progress Note Date: 01/05/22 Hospital course: The patient is a very pleasant 66-year-old female with a past medical history of previous DVT, anxiety, depression, chronic neck pain with cervical DJD, status post 4 cervical spinal surgeries, most recently October 2021 completed at [facility] by Dr. Lucero. Patient presented to the emergency room with complaints of bilateral upper and lower extremity weakness resulting in multiple falls. Patient reports this has been a gradual decline over the past 2 months. Patient reports neck pain is at her chronic baseline and denies any worsening in her changes on this pain. She does report having lower back pain which she reports is slightly worsened than her typical chronic pain. Patient denies having any involuntary loss of bowel or bladder denies having any saddlebag anesthesias. Patient reports bilateral lower extremity sensation remains intact and unchanged, but states they're equally weak and will suddenly give out upon standing without any notice. The patient has been admitted under the services with consultation orthospine surgery team. Attempts have been made to contact surgeon (Dr. Lucero) at [facility] in [place], spoke with staff and messages were left and awaiting callback from patient's spinal surgeon. CT cervical, thoracic, lumbar spine revealing postsurgical changes of the cervical spine with hardware intact, moderate to severe right C7 through T1 neural foraminal stenosis, grade 1 anterolisthesis of L4 on L5 and L5 through S1, and multilevel disc degenerative changes throughout the spine with multilevel disc osteophyte complex resulting in mild spinal canal stenosis and severe foraminal stenosis at L1 through L2 and moderate foraminal stenosis at L2 through L3. Physical examination: Patient seen in place evaluated at bedside this morning. Condition slightly improved since initiation of IV steroids, Decadron. Patient reports that she is walking a little better with the walker. MRI was completed. MRI cervical spine revealing multilevel fusion surgery with kyphotic deformity and no obvious spinal stenosis. MRI thoracic spine revealing moderately severe spinal stenosis at T10 through T11 due to posterior disc herniation and facet arthropathy, there is reported flattening of the thoracic spinal cord with spinal canal narrowing up to 5 mm. Lumbar spine MRI revealing mild degenerative subluxation at L4 through L5 and L5 through S1 with no lumbar spinal stenosis and mild neural foraminal narrowing at L4 through L5. Patient is requesting discharge, she was advised that discharge is not medically recommended as it is advised that patient remain in the hospital to receive IV steroids until transfer arrangements have been completed to [facility] in care of her surgeon Dr. Lucero which was reported by surgeon to be completed on Friday01/07/22., General: non toxic, no distress, appears at stated age, normal weight Derm: no unusual rashes/lesions, warm Head: atraumatic, normocephalic, symmetric Eyes: EOMI, no lid lag, anicteric sclera ENT: Nose and ears atraumatic Neck: No cervical lymphadenopathy, trachea midline, supple Mouth: no lip lesion, mucus membranes moist Cardiovascular: S1S2 reg, no murmur, positive dorsalis pedis pulses bilaterally, no edema Lungs: CTA bilateral, no rhonchi, no rales, no accessory muscle use Abdominal: soft, nontender to palpation, no guarding Ext: Muscle strength 3/5 in bilateral lower extremities and 4/5 strength in bilateral upper extremities. No gross muscle atrophy, no contractures, Neuro: CN II-XI grossly intact, no gross focal neuro deficits Psych: Alert, oriented, appropriate affect Assessment and plan of care Diffuse weakness with multiple falls Long-standing history of chronic neck pain with cervical degenerative disc disease status post for surgical spinal surgeries most recently 10/2021 -CT cervical, thoracic, and lumbar spine to be completed. -Orthospine surgery consulted -Dr. Lucero at [facility] in [place], making arrangements for patient's transfer to their facility once MRI is completed -CRP negative at less than 0.30 and ESR 4. -PT/OT consult -Fall precautions -Neuro checks History of DVT -DVT prophylaxis with heparin History of anxiety and depression -Continue daily medication regimen with Cymbalta and trazodone CODE STATUS: Full Code DVT prophylaxis: Heparin Discussed with: Patient, RN, and orthopedic surgery team Anticipated discharge date: clinical course to determine Anticipated discharge place: transfer arrangements being made to [facility] in [place] A total of 30 minutes was spent on the care of this complex patient more than 50% of the time was spent in counseling and care coordination. Objective - Vital Signs Vital signs: Vital Signs Temp 98.5 F 01/05/22 07:47 Pulse 51 L 01/05/22 07:47 Resp 16 01/05/22 07:47 BP 169/75 01/05/22 07:47 Pulse Ox 95 01/05/22 07:47 FiO2 Intake & Output 01/04/22 01/05/22 01/05/22 18:59 06:59 18:59 Intake Total 118 221 Balance 118 221 Intake: Oral 118 221 Other: # Voids 1 1 # Bowel Movements 0 - Labs CBC & Chem 7: 01/03/22 05:08 01/03/22 05:08
--- NOTE | 2022-01-05 17:35 | P.PN ---
Subjective Progress Note Date: 01/05/22 Principal diagnosis: Spinal Stenosis/cord compression, T10-T11 Patient is seen at bedside this am. She has been worked up for falls and weakness for past few months. She has had previous cervical spine surgeries done in [place] and [place]. She had MRI of the C/T/L spine yesterday. She has no new complaints today. She is denying loss of bowel or bladder today whish she has had in past. She is denying new or constant numbness in her lower extremities. She denies saddle anesthesia. She is denying new or constant weakness in lower extremities this morning. She has been on corticosteroids. She has no complaints currently. Objective - Vital Signs Vital signs: Vital Signs Temp 98.5 F 01/05/22 07:47 Pulse 51 L 01/05/22 07:47 Resp 16 01/05/22 07:47 BP 169/75 01/05/22 07:47 Pulse Ox 95 01/05/22 07:47 FiO2 Intake & Output 01/04/22 01/05/22 01/05/22 18:59 06:59 18:59 Intake Total 118 221 120 Balance 118 221 120 Intake: Oral 118 221 120 Other: # Voids 1 1 # Bowel Movements 0 - Exam Lower extremities: L2 -S1 dermatomes grossly intact to light sensation equal bilaterally L2 - S1 myotomes grossly intact and at least 4-5/5 equal bilaterally No evidence of hyperreflexxia or clonus, Babinski-toes downgoing AJ/KJ 2-3+ - Constitutional General appearance: Present: no acute distress - Labs CBC & Chem 7: 01/03/22 05:08 01/03/22 05:08 - Imaging and Cardiology MRI of thoracic spine shows at least mod-severe stenosis with cord compression at T10-T11 Assessment and Plan (1) Spinal stenosis, thoracic Narrative/Plan: I reviewed with the patient her findings including the stenosis/compression in her thoracic spine at T10-11. Her physical exam seemed relatively benign today, however, with her history weakness, falls, loss of bowel/bladder, I conveyed it would be best to have this addressed sooner than later and be of her best interest to stay receiving corticosteroids, management and monitoring with anticipation of transfer to her surgeon in [place] on Friday vs being discharged to home at this point. Status: Acute Priority: Medium Code(s): M48.04 - SPINAL STENOSIS, THORACIC REGION SNOMED Code(s): 34458156 Time with Patient: Less than 30
--- NOTE | 2022-01-06 08:28 | P.DS ---
Providers Date of admission: 01/03/22 08:35 Expected date of discharge: 01/05/22 Attending physician: Catherine Espinal MD Consults: 01/02/22 08:15 Consult Physician Routine Consulting Provider: Inez Turcios Consult Reason/Comments: Frequent Falls Do you want consulting provider notified?: Yes 01/02/22 17:21 Consult Physician Routine Consulting Provider: Daniel Farooq Consult Reason/Comments: Multiple falls with Lower extremity dysfunction, hx of cerv myelopathy Do you want consulting provider notified?: Yes Primary care physician: [facility] Hospital Course: THIS IS NOT A DISCHARGE SUMMARY THIS IS A SUMMARY OF CARE PATIENT LEFT AGAINST MEDICAL ADVICE Diffuse weakness with multiple falls Moderately severe spinal stenosis at T10 through T11 due to posterior disc herniation and facet arthropathy, there is reported flattening of the thoracic spinal cord with spinal canal narrowing up to 5 mm Long-standing history of chronic neck pain with cervical degenerative disc disease status post multiple surgical spinal surgeries most recently 10/2021 Mild spinal canal stenosis and severe foraminal stenosis at L1 through L2 and moderate foraminal stenosis at L2 through L3. History of DVT History of anxiety and depression Hospital Course: The patient is a very pleasant 66-year-old female with a past medical history of previous DVT, anxiety, depression, chronic neck pain with cervical DJD, status post 4 cervical spinal surgeries, most recently October 2021 completed at [facility] by Dr. Lucero. Patient presented to the emergency room with complaints of bilateral upper and lower extremity weakness resulting in multiple falls. Patient reports this has been a gradual decline over the past 2 months. Patient reports neck pain is at her chronic baseline and denies any worsening in her changes on this pain. She does report having lower back pain which she reports is slightly worsened than her typical chronic pain. Patient denies having any involuntary loss of bowel or bladder denies having any saddlebag anesthesias. Patient reports bilateral lower extremity sensation remains intact and unchanged, but states they're equally weak and will suddenly give out upon standing without any notice. The patient has been admitted under the services with consultation orthospine surgery team. Attempts have been made to contact surgeon (Dr. Lucero) at [facility] in [place], spoke with staff and messages were left and awaiting callback from patient's spinal surgeon. CT cervical, thoracic, lumbar spine revealing postsurgical changes of the cervical spine with hardware intact, moderate to severe right C7 through T1 neural foraminal stenosis, grade 1 anterolisthesis of L4 on L5 and L5 through S1, and multilevel disc degenerative changes throughout the spine with multilevel disc osteophyte complex resulting in mild spinal canal stenosis and severe foraminal stenosis at L1 through L2 and moderate foraminal stenosis at L2 through L3. MRI then completed. MRI cervical spine revealing multilevel fusion surgery with kyphotic deformity and no obvious spinal stenosis. MRI thoracic spine revealing moderately severe spinal stenosis at T10 through T11 due to posterior disc herniation and facet arthropathy, there is reported flattening of the thoracic spinal cord with spinal canal narrowing up to 5 mm. Lumbar spine MRI revealing mild degenerative subluxation at L4 through L5 and L5 through S1 with no lumbar spinal stenosis and mild neural foraminal narrowing at L4 through L5. Patient was requesting discharge as she felt she was doing better and able to walk with a walker. Patient was instructed that this is possibly secondary to the benefits of receiving IV steroids and it was highly recommended for her to stay in the hospital until she could be successfully transferred to [facility] [place] on Friday. RN reports despite recommendations from both myself as well as orthospine specialists, patient was very adamant about leaving today and decided to leave AMA. RN reports that patient was instructed on the risks of further damaging her spine by signing out AGAINST MEDICAL ADVICE. RN reports patient verbalized understanding of all of the risks, but stated she had to go home and take care of a few things before surgery on Friday. Provider notified after patient left AGAINST MEDICAL ADVICE. Patient Condition at Discharge: Undetermined Plan - Discharge Summary Discharge Rx Participant: No New Discharge Prescriptions: No Action Calcium Carbonate [Calcium] 600 mg PO DAILY Celecoxib [CeleBREX] 200 mg PO DAILY traZODone HCL [Desyrel] 100 mg PO BID DULoxetine HCL [Cymbalta] 30 mg PO DAILY Discharge Medication List Celecoxib [CeleBREX] 200 mg PO DAILY 11/06/20 [History] Calcium Carbonate [Calcium] 600 mg PO DAILY 01/03/21 [History] DULoxetine HCL [Cymbalta] 30 mg PO DAILY 01/02/22 [History] traZODone HCL [Desyrel] 100 mg PO BID 01/02/22 [History] Follow up Appointment(s)/Referral(s): Murali Umana MD [Primary Care Provider] - 1-2 days Discharge Disposition: Left Against Medical Advice
[2022-01-07 07:04] LABS: ANA Pattern Speckled
== END 2022-01-05 15:18 | disposition left against medical advice (07) | DRG 552 ==
LOC: EC 23:01 → 6NMEDSUR 01-02 03:08 → OBSVTOIN 01-03 08:35
PROVIDERS: ADMIT Internal Medicine; ATTEND Internal Medicine
DX: M48.04 Spinal stenosis, thoracic region (principal); M51.04 Intervertebral disc disorders with myelopathy, thoracic region; M51.06 Intervertebral disc disorders with myelopathy, lumbar region; K51.90 Ulcerative colitis, unspecified, without complications; M48.061 Spinal stenosis, lumbar region without neurogenic claudication; R29.6 Repeated falls; Z91.81 History of falling; M43.16 Spondylolisthesis, lumbar region; M47.819 Spondylosis without myelopathy or radiculopathy, site unspecified; M51.16 Intervertebral disc disorders with radiculopathy, lumbar region; Z53.29 Procedure and treatment not carried out because of patient's decision for other reasons; R26.81 Unsteadiness on feet; F32.A Depression, unspecified; R25.8 Other abnormal involuntary movements; F41.9 Anxiety disorder, unspecified; G89.29 Other chronic pain; M25.78 Osteophyte, vertebrae; Z79.1 Long term (current) use of non-steroidal anti-inflammatories (NSAID); Z79.899 Other long term (current) drug therapy; Z86.718 Personal history of other venous thrombosis and embolism; Z87.891 Personal history of nicotine dependence; Z98.1 Arthrodesis status; Z87.81 Personal history of (healed) traumatic fracture; Z98.84 Bariatric surgery status
CPT/HCPCS: 36415; 72125; 72128; 72131; 72141; 72146; 72148; 80053; 83735; 84100; 85025; 85027; 85610; 85652; 85730; 86038; 86039; 86140; 96360; 96361; 99285

== ENCOUNTER 2022-06-08 08:21 | Inpatient (IN) | payer MEDICARE, OTHER ==
--- NOTE | 2022-06-08 08:46 | ED ---
General Adult HPI - General Chief complaint: Neuro Symptoms/Deficit Stated complaint: Stroke Time Seen by Provider: 06/08/22 08:36 Source: patient, family, RN notes reviewed, old records reviewed (Previous history including previous surgeries) Mode of arrival: ambulatory Limitations: no limitations - History of Present Illness Initial comments: Patient is a pleasant 66-year-old female presenting to the emergency department with concern for right-sided weakness. Onset of symptoms was around 48 hours ago. Symptoms have progressively worsened. Patient noticed right arm weakness. has noticed patient being off balance which patient does agree to. No headache. No confusion. No speech problems. No history of similar symptoms previously. Patient does have history of tubal previous spinal problems including surgeries. Patient denies any back or neck pain at this time. - Related Data Home Medications Medication Instructions Recorded Confirmed Celecoxib [CeleBREX] 200 mg PO DAILY 11/06/20 01/02/22 Calcium Carbonate [Calcium] 600 mg PO DAILY 01/03/21 01/02/22 DULoxetine HCL [Cymbalta] 30 mg PO DAILY 01/02/22 01/02/22 traZODone HCL [Desyrel] 100 mg PO BID 01/02/22 01/02/22 Allergies Allergy/AdvReac Type Severity Reaction Status Date / Time No Known Allergies Allergy Verified 06/08/22 08:31 Review of Systems ROS Statement: Those systems with pertinent positive or pertinent negative responses have been documented in the HPI. ROS Other: All systems not noted in ROS Statement are negative. Constitutional: Denies: fever Eyes: Denies: eye pain ENT: Denies: ear pain Respiratory: Denies: cough Cardiovascular: Denies: chest pain Endocrine: Denies: fatigue Gastrointestinal: Denies: abdominal pain Genitourinary: Denies: dysuria Musculoskeletal: Reports: as per HPI. Denies: back pain Skin: Denies: rash Neurological: Reports: as per HPI, weakness. Denies: headache Past Medical History Past Medical History: Deep Vein Thrombosis (DVT), Musculoskeletal Disorder Additional Past Medical History / Comment(s): Multiple cervical spine surgeries with 2 of [address] Torres 10 and 11 years ago. And for more done with Dr. Soe at [facility] in January, February, April 2021 and again in October 2021. chronic neck and back pain DVT (2012) History of Any Multi-Drug Resistant Organisms: None Reported Past Surgical History: Section, Hysterectomy Additional Past Surgical History / Comment(s): neck surgeryx6 , L foot, L leg thrombectomy, Lap Band Past Psychological History: Anxiety, Depression Smoking Status: Former smoker Past Alcohol Use History: None Reported Past Drug Use History: None Reported - Past Family History Father Family Medical History: Hyperlipidemia General Exam Limitations: no limitations General appearance: alert, in no apparent distress Head exam: Present: normocephalic Eye exam: Present: normal appearance, PERRL, EOMI ENT exam: Present: normal oropharynx Neck exam: Present: normal inspection. Absent: tenderness Respiratory exam: Present: normal lung sounds bilaterally Cardiovascular Exam: Present: regular rate, normal rhythm GI/Abdominal exam: Present: soft. Absent: tenderness Extremities exam: Present: normal inspection, full ROM. Absent: tenderness Neurological exam: Present: alert, oriented X3, CN II-XII intact Expanded Neurological exam: Present: protecting the airway Cranial nerves: EOM's Intact: Normal Cerebellar function: Finger to Nose: Abnormal Right Sensory exam: Upper Extremity Light Touch: Normal, Lower Extremity Light Touch: Abnormal Left (States diminished left leg) Motor strength exam: RUE: 4, LUE: 5, RLE: 5, LLE: 5 Eye Response: (4) open spontaneously Motor Response: (6) obeys commands Verbal Response: (5) oriented Psychiatric exam: Present: normal affect, normal mood Skin exam: Present: normal color Course Vital Signs 06/08/22 06/08/22 08:28 09:49 Temperature 98 F Pulse Rate 110 H 89 Respiratory 18 18 Rate Blood Pressure 132/76 127/85 O2 Sat by Pulse 96 93 L Oximetry EKG Findings - EKG Results: EKG: interpreted by ERMD (Left axis. Poor R-wave progression.), sinus rhythm, normal ST/T Medical Decision Making - Medical Decision Making Patient reevaluated and unchanged. Symptoms concerning for mild stroke. Patient will be admitted with neurology consult. Patient reevaluated here patient and family updated. Case was discussed with Dr. Thakkar, who will admit covering Dr. Umana - Radiology Data Radiology results: report reviewed (Computed tomography scan of the brain shows atrophy and chronic small vessel changes without acute process.) Interpreted by me: Two-view chest x-ray shows no acute process. Disposition Clinical Impression: Cerebrovascular accident (CVA) Disposition: ADMITTED IP TO THIS HOSP Is patient prescribed a controlled substance at d/c from ED?: No Referrals: Murali Umana MD [Primary Care Provider] - 1-2 days Time of Disposition: 10:12
--- NOTE | 2022-06-08 09:33 | CT ---
EXAMINATION TYPE: CT brain wo con DATE OF EXAM: 06/08/2022 COMPARISON: 11/18/2011 HISTORY: ams CT DLP: 1094.[address] of the brain was performed. The ventricles, basal cisterns and sulci overlying the cerebral convexities demonstrate mild enlargem ent. There is no evidence for intracranial hemorrhage or sulcal effacement. There is decreased attenuation about the periventricular white matter and deep white matter of both c erebral hemispheres, compatible with chronic small vessel ischemia. Differential diagnosis does inclu de demyelination. No mass effects are seen.No midline shift. Osseous calvarium is intact. If symptoms persist consider MRI. IMPRESSION: 1. Age related atrophic and chronic small vessel ischemic change without acute intracranial process s een at this time.
--- NOTE | 2022-06-08 09:34 | XR ---
EXAMINATION TYPE: XR chest 2V DATE OF EXAM: 06/08/2022 COMPARISON: NONE HISTORY: Shortness of breath TECHNIQUE: Frontal and lateral views of the chest are obtained. FINDINGS: Scattered senescent parenchymal changes noted. Hyperinflation compatible with COPD. No evidence for infiltrate. No evidence for atelectasis. Cardiomegaly with pulmonary venous congestion. No evidence for overt failure. Mediastinal structures are stable and grossly unremarkable. No evidence for hilar prominence. Degenerative changes dorsal spine. IMPRESSION: 1. No evidence for acute pulmonary disease.
[2022-06-08] MEDS ORDERED: ASPIRIN 325 MG TAB PO STA (10:12)
[2022-06-08 10:25] LABS: Albumin 3.5 g/dL (3.5-5.0); Total Bilirubin 0.5 mg/dL (0.2-1.3); Total Protein 6.2 g/dL (6.3-8.2)
[2022-06-08 10:43] LABS: INR 0.9 (<1.2); Partial Thromboplastin Time 22.3 sec (22.0-30.0); Prothrombin Time 9.7 sec (9.0-12.0)
[2022-06-08 10:49] LABS: Basophils % (A) 0 %; Eosinophils # (A) 0.3 k/uL (0-0.7); Eosinophils % (A) 3 %; HCT 47.7 % (34.0-46.0); HGB 15.9 gm/dL (11.4-16.0); Lymphocytes # (A) 0.4 k/uL (1.0-4.8); Lymphocytes % (A) 5 %; MCHC 33.3 g/dL (31.0-37.0); Mean Platelet Volume 8.4; Monocytes # (A) 0.4 k/uL (0-1.0); Monocytes % (A) 4 %; Neutrophils % (A) 87 %; Platelet Count 186 k/uL (150-450); RDW 13.8 % (11.5-15.5); WBC 9.2 k/uL (3.8-10.6)
[2022-06-08] MEDS: SODIUM CHLORIDE 0.9% 1,000 ML IV SCH ×2 (11:04→21:21)
[2022-06-08] MEDS ORDERED: NALOXONE 0.4 MG/ML 1 ML VIAL IV PRN (12:03)
--- NOTE | 2022-06-08 12:14 | P.HPIM ---
History of Present Illness H&P Date: 06/08/22 Chief Complaint: weakness 66-year-old female presenting to the emergency department with concern for right arm and hand weakness. She has been having weakness over the past several days. States that her right hand has been numb. Also states that she has been generally weak for the past few months because of multiple neck surgeries in the past. She has also been having dizziness and imbalance. No falls. No headache. No confusion. No speech problems. No history of similar symptoms previously. Evaluation in the emergency department revealed right arm weakness, vital signs stable, labs unremarkable. Computed tomography scan of the head showed chronic small vessel ischemic disease, no acute stroke. She was admitted to the hospital for further evaluation and management. Review of Systems Complete review of system performed, pertinent positives per HPI, otherwise negative Past Medical History Past Medical History: Deep Vein Thrombosis (DVT), Musculoskeletal Disorder Additional Past Medical History / Comment(s): Multiple cervical spine surgeries with [address] of [address] Torres 10 and 11 years ago. And for more done with Dr. Seo at [facility] in January, February, April 2021 and again in October 2021. chronic neck and back pain DVT (2012) History of Any Multi-Drug Resistant Organisms: None Reported Past Surgical History: Section, Hysterectomy Additional Past Surgical History / Comment(s): neck surgeryx6 , L foot, L leg thrombectomy, Lap Band Past Psychological History: Anxiety, Depression Smoking Status: Former smoker Past Alcohol Use History: None Reported Past Drug Use History: None Reported - Past Family History Father Family Medical History: Hyperlipidemia Medications and Allergies Home Medications Medication Instructions Recorded Confirmed Type Celecoxib [CeleBREX] 200 mg PO DAILY 11/06/20 01/02/22 History Calcium Carbonate [Calcium] 600 mg PO DAILY 01/03/21 01/02/22 History DULoxetine HCL [Cymbalta] 30 mg PO DAILY 01/02/22 01/02/22 History traZODone HCL [Desyrel] 100 mg PO BID 01/02/22 01/02/22 History Allergies Allergy/AdvReac Type Severity Reaction Status Date / Time No Known Allergies Allergy Verified 06/08/22 08:31 Physical Exam Vitals: Vital Signs Temp Pulse Resp BP Pulse Ox 06/08/22 09:49 89 18 127/85 93 L 06/08/22 08:28 98 F 110 H 18 132/76 96 Intake and Output 06/07/22 06/08/22 06/08/22 22:59 06:59 14:59 Other: Weight 63.503 kg Constitutional: No acute distress, conversant, pleasant Eyes:Anicteric sclerae, moist conjunctiva, no lid-lag, PERRLA, ENMT: Oropharynx clear, no erythema, exudates Neck: Supple, FROM, no masses, or JVD, No carotid bruits, No thyromegaly Lungs: Clear to auscultation, Clear to percussion, Normal respiratory effort, no accessory muscle use Cardiovascular: Heart regular in rate and rhythm, No murmurs, gallops, or rubs, No peripheral edema Abdominal: Soft, Nontender, no guarding, rebound or rigidity, Normoactive bowel sounds, No hepatomegaly, No splenomegaly, No palpable mass Skin: Normal temperature, tone, texture, turgor, no induration, No subcutaneous nodules, No rash, lesions, No ulcers Extremities: No digital cyanosis, No clubbing, Pedal pulses intact and symmetrical, Radial pulses intact and symmetrical, No calf tenderness Psychiatric: Alert and oriented to person, place and time, appropriate affect, intact judgement Neuro: Right arm weakness, sensation diminished in the right arm and hand compared to the left side. Bilateral legs strength 5 out of 5. Cranial nerves II-XII grossly intact, no focal sensory deficits Results CBC & Chem 7: 06/08/22 09:51 06/08/22 09:51 Labs: Abnormal Lab Results - Last 24 Hours (Table) 06/08/22 Range/Units 09:51 BUN 23 H (7-17) mg/dL Glucose 137 H (74-99) mg/dL Total Protein 6.2 L (6.3-8.2) g/dL Assessment and Plan Plan: Right arm weakness Could be secondary to cervical spondylosis, rule out CVA Evaluation by neurology Telemetry PT and OT Check A1c and lipid panel Chronic neck pain Chronic back pain Stable Depression Stable resume meds Admit to inpatient, expected length of stay more than 2 midnights
[2022-06-08] MEDS: traZODone HCL 100 MG TAB PO SCH ×2 (12:48→21:21)
[2022-06-08] MEDS: DULoxetine HCL 30 MG CAPSULE.DR PO SCH (12:48)
[2022-06-08] MEDS ORDERED: ACETAMINOPHEN TAB 325 MG TAB PO PRN (13:25)
--- NOTE | 2022-06-08 19:25 | P.CNNES ---
History of Present Illness Consult date: 06/08/22 Reason for Consult: Right arm weakness History of Present Illness: The patient is a 66-year-old female who is seen in [facility] emergency department on June 08, 2022, via teleneurology. The patient is a poor historian. She is able to tell me that she thought she was having a "mini stroke", because she has been unable to open her right hand. She also reports feeling somewhat unsteady on her feet. She says that she has nerve damage in her hands because of surgery on her neck. She reports loss of feeling in both of her hands. What is reportedly new however is a "right claw hand" for the past 3 days. The patient denies new neck pain and headache. She denies injury to her hand and neck. She says that her right arm is "okay". It is however "hypersensitive". The patient reports that she has had forward or surgeries to her neck, the most recent one being in February of this year. The patient denies falls, and changes, difficulty with speech and swallowing. She does report she has tripped. She also reports headache "secondary to sinus infection". In the emergency department, a CT scan of the brain was performed. There is no evidence of acute hemorrhage or infarct. There are findings consistent with chronic ischemic change. Past Medical History Past Medical History: Deep Vein Thrombosis (DVT), Musculoskeletal Disorder Additional Past Medical History / Comment(s): Multiple cervical spine surgeries with 2 of [address] Torres 10 and 11 years ago. And for more done with Dr. Seo at [facility] in January, February, April 2021 and again in October 2021. chronic neck and back pain DVT (2012) History of Any Multi-Drug Resistant Organisms: None Reported Past Surgical History: Section, Hysterectomy Additional Past Surgical History / Comment(s): neck surgeryx6 , L foot, L leg thrombectomy, Lap Band Past Psychological History: Anxiety, Depression Smoking Status: Former smoker Past Alcohol Use History: None Reported Past Drug Use History: None Reported - Past Family History Father Family Medical History: Hyperlipidemia Medications and Allergies Home Medications Medication Instructions Recorded Confirmed Type Celecoxib [CeleBREX] 200 mg PO DAILY 11/06/20 06/08/22 History traZODone HCL [Desyrel] 100 mg PO HS 01/02/22 06/08/22 History DULoxetine HCL [Cymbalta] 60 mg PO DAILY 06/08/22 06/08/22 History Sulfamethox-Tmp 800-160Mg [Bactrim 1 tab PO BID 06/08/22 06/08/22 History DS 800-160 mg] predniSONE See Taper PO DAILY 06/08/22 06/08/22 History Allergies Allergy/AdvReac Type Severity Reaction Status Date / Time No Known Allergies Allergy Verified 06/08/22 12:36 Physical Examination - Vital Signs Vital Signs: Vital Signs Temp Pulse Resp BP Pulse Ox 06/08/22 17:35 98 16 130/77 96 06/08/22 13:33 102 H 17 124/60 94 L 06/08/22 12:52 102 H 17 118/87 94 L 06/08/22 11:03 92 18 118/81 94 L 06/08/22 09:49 89 18 127/85 93 L 06/08/22 08:28 98 F 110 H 18 132/76 96 Intake and Output 06/08/22 06/08/22 06/08/22 06:59 14:59 22:59 Other: Weight 63.503 kg Gen.: The patient is reclining in the bed in the emergency department. She is in no acute distress. HEENT: Head is atraumatic, normocephalic. Fundus not visualized. There is no scleral icterus. Mucous membranes are moist. Neck: Supple Heart: Regular rate and rhythm Extremities: Without edema Neurological examination Mental status: The patient is awake, alert and oriented 3. Her speech is clear. There is no dysarthria or aphasia. Cranial nerves: Pupils are equal at 2 mm and reactive. Visual oneil are full to confrontation. Extraocular movements are intact. The patient does have difficulty with following instructions for extraocular movement testing. There is no nystagmus. Facial sensation is intact. There is no facial asymmetry. Hearing is grossly intact. Uvula and palate are midline. Shoulder shrug is diminished on the right. Tongue protrudes midline. Motor: There is increased flexor tone involving the fingers of the right hand. 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 Left upper extremity strength 5/5. Bilateral lower extremity strength is symmetric and full. Coordination: Finger to nose testing is intact bilaterally. The patient has difficulty performing rapid alternating movements with the bilateral upper extr emities, R > L. Sensation: Decreased to light touch in the right upper extremity and feet bilaterally. Deep tendon reflexes: 2-3+/4+ in the bilateral upper extremities. Patellar reflexes 3+/4+. Plantar responses are mute bilaterally. Gait: Not assessed Results - Laboratory Findings CBC and BMP: 06/08/22 09:51 12 09:51 Abnormal Lab Findings: Abnormal Labs 06/08/22 06/08/22 09:51 09:51 Hct 47.7 H Neutrophils # 8.0 H Lymphocytes # 0.4 L BUN 23 H Glucose 137 H Total Protein 6.2 L - Diagnostic Findings Comments: CT scan of the brain reveals no signs of acute hemorrhage or infarct. Assessment and Plan Assessment: 1. Reported worsening of right upper extremity weakness, for the past 3 days. Neurological examination reveals right greater than left upper extremity weakness with increased tone in the flexor muscles involving the right hand: Etiology is likely secondary to cervical spine disorder however it is important to rule out stroke versus exacerbation of existing neurologic deficit, secondary to infection 2. History of multiple cervical spine surgeries 3. History of DVT Plan: 1. MRI of brain has been ordered to further evaluate for cerebral ischemia 2. Urinalysis has been ordered 3. Physical and occupational therapy consultations 4. Continue aspirin at this time 5. Agree with labs: Lipid panel, hemoglobin A1c, TSH Time with Patient: Greater than 30 (Spent 25 minutes examining patient. An additional 25 minutes was spent reviewing labs, imaging reports, documentation and preparing this note)
[2022-06-09 04:00] LABS: Basophils % (A) 0 %; Eosinophils # (A) 0.4 k/uL (0-0.7); Eosinophils % (A) 6 %; HCT 43.8 % (34.0-46.0); HGB 14.6 gm/dL (11.4-16.0); Lymphocytes # (A) 0.4 k/uL (1.0-4.8); Lymphocytes % (A) 6 %; MCH 29.9 pg (25.0-35.0); MCHC 33.3 g/dL (31.0-37.0); MCV 89.9 fL (80.0-100.0); Mean Platelet Volume 7.8; Monocytes # (A) 0.3 k/uL (0-1.0); Monocytes % (A) 5 %; Neutrophils # (A) 5.4 k/uL (1.3-7.7); Neutrophils % (A) 82 %; Platelet Count 163 k/uL (150-450); RBC 4.88 m/uL (3.80-5.40); RDW 13.4 % (11.5-15.5); WBC 6.5 k/uL (3.8-10.6)
[2022-06-09 04:59] LABS: ALT 30 U/L (4-34); AST 27 U/L (14-36); African American GFR (CKD) >90 (>60 ml/min/1.73 sqM); Albumin 2.9 g/dL (3.5-5.0); Alkaline Phosphatase 90 U/L (38-126); Anion Gap 6 mmol/L; Blood Urea Nitrogen 16 mg/dL (7-17); Calcium 7.7 mg/dL (8.4-10.2); Carbon Dioxide 23 mmol/L (22-30); Chloride 107 mmol/L (98-107); Glucose 134 mg/dL (74-99); Magnesium 1.8 mg/dL (1.6-2.3); Non-African American GFR(CKD) >90 (>60 ml/min/1.73 sqM); Potassium 4.5 mmol/L (3.5-5.1); Sodium 136 mmol/L (137-145); Total Bilirubin 0.8 mg/dL (0.2-1.3); Total Protein 5.3 g/dL (6.3-8.2)
[2022-06-09] MEDS: DULoxetine HCL 30 MG CAPSULE.DR PO SCH (09:44)
[2022-06-09] MEDS: MELOXICAM 7.5 MG TAB PO SCH (09:44)
[2022-06-09] MEDS: CALCIUM CARBONATE 500 MG CHEWABLE PO SCH (09:44)
[2022-06-09] MEDS: traZODone HCL 100 MG TAB PO SCH ×2 (09:44→20:19)
[2022-06-09] MEDS: ASPIRIN 325 MG TAB PO SCH (09:44)
[2022-06-09 11:07] LABS: Chol/HDL Ratio 5.32 Ratio; LDL Cholesterol,Calculated 91.6 mg/dL (0.0-131.0)
--- NOTE | 2022-06-09 12:31 | P.PN ---
Subjective Progress Note Date: 06/09/22 Principal diagnosis: right arm weakness Still with right arm weakness, no improvement according to patient. No new neurological symptoms. No pain or sob. No fevers. Objective - Vital Signs Vital signs: Vital Signs Temp 98.8 F 06/09/22 08:00 Pulse 86 06/09/22 08:00 Resp 18 06/09/22 08:00 BP 147/86 06/09/22 08:00 Pulse Ox 95 06/08/22 23:46 FiO2 Intake & Output 06/08/22 06/09/22 06/09/22 18:59 06:59 18:59 Intake Total 500 118 Balance 500 118 Weight 63.503 kg 68.5 kg Intake: Intake, IV Titration 500 Amount Sodium Chloride 0.9% 1, 500 000 ml @ 100 mls/hr IV . Q10H YANELY Rx#:[id number] Oral 118 Other: Voiding Method Toilet Toilet # Voids 1 1 - Exam Constitutional: No acute distress, conversant, pleasant Eyes:Anicteric sclerae, moist conjunctiva, no lid-lag, PERRLA, ENMT: Oropharynx clear, no erythema, exudates Neck: Supple, FROM, no masses, or JVD, No carotid bruits, No thyromegaly Lungs: Clear to auscultation, Clear to percussion, Normal respiratory effort, no accessory muscle use Cardiovascular: Heart regular in rate and rhythm, No murmurs, gallops, or rubs, No peripheral edema Abdominal: Soft, Nontender, no guarding, rebound or rigidity, Normoactive bowel sounds, No hepatomegaly, No splenomegaly, No palpable mass Skin: Normal temperature, tone, texture, turgor, no induration, No subcutaneous nodules, No rash, lesions, No ulcers Extremities: No digital cyanosis, No clubbing, Pedal pulses intact and symmetrical, Radial pulses intact and symmetrical, No calf tenderness Psychiatric: Alert and oriented to person, place and time, appropriate affect, intact judgement Neuro: Right arm weakness, sensation diminished in the right arm and hand saumya red to the left side. Bilateral legs strength 5 out of 5. Cranial nerves II- XII grossly intact, no focal sensory deficits - Labs CBC & Chem 7: 06/09/22 03:13 06/09/22 03:13 Labs: Abnormal Lab Results - Last 24 Hours (Table) 06/08/22 06/09/22 06/09/22 Range/Units 09:51 03:13 03:13 Lymphocytes # 0.4 L (1.0-4.8) k/uL Sodium 136 L (137-145) mmol/L Glucose 134 H (74-99) mg/dL Hemoglobin A1c 6.8 H (0.0-6.0) % Calcium 7.7 L (8.4-10.2) mg/dL Total Protein 5.3 L (6.3-8.2) g/dL Albumin 2.9 L (3.5-5.0) g/dL Triglycerides 208.00 H (0.00-149.00) mg/dL VLDL Cholesterol, Calc 41.60 H (5.00-40.00) mg/dL HDL Cholesterol 30.80 L (40.00-60.00) mg/dL Assessment and Plan Plan: Right arm weakness Could be secondary to cervical spondylosis, rule out CVA Evaluation by neurology Getting brain MRI to r/o stroke, if negative will need cervical spine MRI Telemetry PT and OT New onset diabetes A1c 6.8, will start SSI, will likely need oral agent started at discharge Chronic neck pain Chronic back pain Stable Depression Stable resume meds
[2022-06-09 16:38] LABS: Glucose,Whole Blood 121 mg/dL (70-110)
[2022-06-09] MEDS: INSULIN ASPART (NovoLOG) 100 UNIT/ML VIAL SQ SCH ×3 (18:51→22:03)
[2022-06-09] MEDS: SODIUM CHLORIDE 0.9% 1,000 ML IV SCH (18:52)
[2022-06-09 22:04] LABS: Glucose,Whole Blood 140 mg/dL (70-110)
[2022-06-10] MEDS: SODIUM CHLORIDE 0.9% 1,000 ML IV SCH ×3 (02:41→20:40)
[2022-06-10 06:02] LABS: Glucose,Whole Blood 146 mg/dL (70-110)
[2022-06-10] MEDS: INSULIN ASPART (NovoLOG) 100 UNIT/ML VIAL SQ SCH ×4 (06:06→20:40)
[2022-06-10] MEDS: DULoxetine HCL 30 MG CAPSULE.DR PO SCH (08:05)
[2022-06-10] MEDS: MELOXICAM 7.5 MG TAB PO SCH (08:05)
[2022-06-10] MEDS: traZODone HCL 100 MG TAB PO SCH ×2 (08:05→20:08)
[2022-06-10] MEDS: ASPIRIN 325 MG TAB PO SCH (08:06)
[2022-06-10] MEDS: CALCIUM CARBONATE 500 MG CHEWABLE PO SCH (08:06)
--- NOTE | 2022-06-10 10:44 | MR ---
EXAMINATION TYPE: MR brain wo con DATE OF EXAM: 06/10/2022 COMPARISON: NONE HISTORY: Right arm weakness, poss CVA TECHNIQUE: T1-weighted sagittal, T2, FLAIR, and diffusion axial, and T2 coronal coronal views of the brain are submitted. FINDINGS: There is abnormal signal on diffusion imaging within the left occipital lobe measuring 1.6 cm. Multip le small subcentimeter foci are seen in the adjacent region compatible with acute ischemia. There are additional foci of abnormal signal on diffusion seen within the left parietal lobe measuring 0.9 cm in deep white matter and within the posterior left parietal lobe. There is an additional 3 mm focus of abnormal signal on diffusion within the right parietal white mat ter and multiple additional areas within the left parietal white matter with the largest measuring 1. 4 cm. Findings are compatible with numerous areas of acute ischemia. No midline shift. Mild generalized degenerative change. Confluent signal in the periventricular white matter most typical remote ischemia. Suspect that there is remote ischemia involving the alexander. Nasal septal deviation is seen with changes of mild chronic sinusitis. Orbits are symmetric. Cranioce rvical junction is maintained. Sella turcica has a normal appearance. Report called to the patient's nurse 10:35 AM 06/10/2022. IMPRESSION: 1. Multiple areas of acute to subacute ischemia involving the left parietal, left occipital and right parietal lobes.
--- NOTE | 2022-06-10 10:46 | P.PN ---
Subjective Progress Note Date: 06/10/22 Hospital course: The patient is a very pleasant 66-year-old female with a past medical history of previous DVT, anxiety, depression, chronic neck pain with cervical DJD, status post 4 cervical spinal surgeries, most recently October 2021 completed at [facility] by Dr. Lucero. Patient presented to the emergency room with complaints of right upper extremity weakness beginning approximately 48 hours prior to arrival in the emergency department. Patient reported she has chronic weakness/numbness/tingling in bilateral upper extremities but states noticing a sudden change resulting in worsening numbness/weakness of right upper extremity which progressively worsened resulting in her coming to the emergency department for evaluation. Patient denied having any recent falls, new surgeries, or increase/changes in her chronic neck and back pain. Patient underwent full evaluation in the emergency department. CBC and CMP showing no significant abnormalities. EKG revealed normal sinus rhythm at 96 bpm with no noted T-wave or ST abnormalities showing no signs of acute ischemia. CT brain revealed age- related atrophic and chronic small vessel ischemic changes without acute intercranial process. Chest x-ray negative for acute cardiopulmonary process. Patient was admitted under our services with consultation to neurology. Hemoglobin A1c elevated at 6.8%. Lipid profile revealing elevated triglycerides of 208, VLDL of 41.6, and low HDL of 30.80. Physical exam: Patient seen and fully evaluated at bedside. She reports condition remains unchanged and she continues to have weakness/numbness and right upper extremity. Patient has no other neurological deficits noted. Patient denies having any changes in or increases in her chronic neck/back pain. Patient scheduled to undergo MRI later this morning. Patient denies having any headache, lightheadedness, dizziness, chest pain, palpitations, shortness of breath, or any other new complaints at this time. Vital signs reviewed and stable. General: Nontoxic, no distress and appears stated age. Derm: Skin warm and dry, normal coloration for ethnicity. Head: Atraumatic, normocephalic and symmetric. Eyes: EOMs intact, no lid lag, and anicteric sclera Mouth: no lip lesions, mucus membranes moist Cardiovascular: regular rate and rhythm with normal S1S2, no murmur, positive posterior tibial pulses bilaterally, and cap refill < 2 seconds. Lungs: Respirations even, regular, and unlabored on room air. Lungs CTA bilaterally, no rhonchi, no rales, no wheezing, and no accessory muscle usage. Abdominal: soft, nontender to palpation, no guarding, no appreciable organomegaly Ext: Movement and ROM intact with the exception of right upper extremity weakness, weakness and right arm as well as right hand. Patient had difficult time with squeezing and making a fist. Sensation was intact and appeared to be equal bilaterally. No gross muscle atrophy, no edema, no contractures Neuro: Speech clear, face symmetrical and CN II-XII grossly intact with no noted focal neuro deficits Psych: Alert and oriented to person, place, time, and situation. Appropriate and pleasant affect. Assessment and Plan of Care: Right upper extremity weakness, possibly secondary to cervical spondylosis, rule out CVA -Continue neuro checks -Neurology following, appreciate recommendations -MRI to be completed -Telemetry monitoring -PT/OT New-onset diabetes mellitus -Hemoglobin A1c 6.8%, patient will need to be started on metformin upon discharge. -Patient currently on glycemic protocol with NovoLog sliding scale. Long-standing history of chronic neck pain with cervical degenerative disc disease and spinal stenosis status post multiple surgical spinal surgeries most recently 10/2021 -Patient to continue to follow up outpatient with her orthospine surgeon, Dr. Lucero History of DVT -DVT prophylaxis with Lovenox History of anxiety and depression -Continue daily medication regimen with Cymbalta and trazodone. CODE STATUS: Full code DVT prophylaxis: Lovenox Discussed with: Patient and RN Anticipated discharge date: Likely within the next 24-[address]: Home A total of 34 minutes was spent on the care of this complex patient more than 50% of the time was spent in counseling and care coordination. Objective - Vital Signs Vital signs: Vital Signs Temp 98.1 F 06/09/22 20:00 Pulse 85 06/10/22 04:00 Resp 18 06/10/22 04:00 BP 147/87 06/10/22 04:00 Pulse Ox 93 L 06/10/22 04:00 FiO2 Intake & Output 06/09/22 06/10/22 06/10/22 18:59 06:59 18:59 Intake Total 354 Balance 354 Intake: Oral 354 Other: Voiding Method Toilet Toilet # Voids 1 1 - Labs CBC & Chem 7: 06/09/22 03:13 06/09/22 03:13 Labs: Abnormal Lab Results - Last 24 Hours (Table) 06/09/22 06/09/22 06/09/22 Range/Units 03:13 16:30 22:03 POC Glucose (mg/dL) 121 H 140 H (70-110) mg/dL Triglycerides 208.00 H (0.00-149.00) mg/dL VLDL Cholesterol, Calc 41.60 H (5.00-40.00) mg/dL HDL Cholesterol 30.80 L (40.00-60.00) mg/dL 06/10/22 Range/Units 06:00 POC Glucose (mg/dL) 146 H (70-110) mg/dL Triglycerides (0.00-149.00) mg/dL VLDL Cholesterol, Calc (5.00-40.00) mg/dL HDL Cholesterol (40.00-60.00) mg/dL
[2022-06-10] MEDS: ENOXAPARIN 40 MG/0.4 ML SYRINGE SQ SCH (10:52)
[2022-06-10 11:28] LABS: Glucose,Whole Blood 121 mg/dL (70-110)
[2022-06-10 16:26] LABS: Glucose,Whole Blood 123 mg/dL (70-110)
[2022-06-10] MEDS: CLOPIDOGREL 75 MG TAB PO SCH (20:08)
[2022-06-10] MEDS: ATORVASTATIN 40 MG TAB PO SCH (20:08)
[2022-06-10 20:14] LABS: Glucose,Whole Blood 155 mg/dL (70-110)
--- NOTE | 2022-06-10 20:20 | US ---
EXAMINATION TYPE: US carotid duplex BILAT DATE OF EXAM: 06/10/2022 COMPARISON: NONE CLINICAL HISTORY: CVA. CVA TECHNIQUE: Carotid duplex ultrasound examination. Indirect Doppler criteria was utilized. FINDINGS: EXAM MEASUREMENTS: RIGHT: Peak Systolic Velocity (PSV) cm/sec ----- Right CCA: 135.5 ----- Right ICA: 151.5 ----- Right ECA: 137.7 ICA/CCA ratio: 1.1 RIGHT: End Diastole cm/sec ----- Right CCA: 30.7 ----- Right ICA: 45.1 ----- Right ECA: 11.6 LEFT: Peak Systolic Velocity (PSV) cm/sec ----- Left CCA: 92.3 ----- Left ICA: 82.5 ----- Left ECA: 95.1 ICA/CCA ratio: 0.9 LEFT: End Diastole cm/sec ----- Left CCA: 27.4 ----- Left ICA: 27.4 ----- Left ECA: 9.5 VERTEBRALS (direction of flow): Right Vertebral: Not vis Left Vertebral: Antegrade Rhythm: Normal NURSING CLERK NOTES: Right distal ICA velocity was elevated at 151.5cm/s IMPRESSION: Less than 50% stenosis of the bilateral carotid bifurcations. Criteria for Assigning % of Stenosis / Diameter reduction (Estimation based on the indirect measurements of the internal carotid artery velocities (ICA PSV). 1. Normal (no stenosis)=ICA PSV < 125 cm/s: ratio < 2.0: ICA EDV<40 cm/s. 2. Less than 50% stenosis=ICA PSV < 125 cm/s: ratio < 2.0: ICA EDV<40 cm/s. 3. 50 to 69% stenosis=ICA PSV of 125 to 230 cm/s: ration 2.0 ? 4.0: ICA EDV 40-100 cm/s. 4. Greater than 70% stenosis to near occlusion= ICA PSV > 230 cm/s: ratio > 4.0: ICA EDV > 100 cm/s. 5. Near occlusion= ICA PSV velocities may be low or undetectable: variable ratio and ICA EDV. 6. Total occlusion=unable to detect flow.
[2022-06-11 06:04] LABS: Glucose,Whole Blood 116 mg/dL (70-110)
[2022-06-11] MEDS: INSULIN ASPART (NovoLOG) 100 UNIT/ML VIAL SQ SCH ×4 (06:05→20:43)
[2022-06-11] MEDS: CALCIUM CARBONATE 500 MG CHEWABLE PO SCH (08:06)
[2022-06-11] MEDS: DULoxetine HCL 30 MG CAPSULE.DR PO SCH (08:07)
[2022-06-11] MEDS: CLOPIDOGREL 75 MG TAB PO SCH (08:07)
[2022-06-11] MEDS: DULoxetine HCL 60 MG CAPSULE.DR PO SCH (08:07)
[2022-06-11] MEDS: ASPIRIN 81 MG PO SCH (08:07)
[2022-06-11] MEDS: traZODone HCL 100 MG TAB PO SCH ×2 (08:07→20:45)
[2022-06-11] MEDS: ENOXAPARIN 40 MG/0.4 ML SYRINGE SQ SCH (08:07)
--- NOTE | 2022-06-11 10:24 | P.PN ---
Subjective Progress Note Date: 06/10/22 Patient was seen for a follow-up. Patient initially seen by Dr. Machuca. Please refer to her note for details. Patient is a 66-year-old right-handed female, who came to the hospital because she could not move her right arm. Her both legs felt "jiggly wiggly". She did not have any slurred speech, visual disturbance, diplopia. Patient states that her symptoms have much improved. Both legs feel fine, although slightly jiggly. She relates it to not getting out of bed. She has smoked tobacco long time ago, but quit smoking 50 years ago. At home she does not take any aspirin or antiplatelet medication. She denies hypertension or diabetes. Patient states she has history of neck surgery and she has screws in it. She states that it was "too close to her nerve which produced some damage". As a result she has developed decreased sensation in both hands, right more than left for last 2 years. Objective - Vital Signs Vital signs: Vital Signs Temp 98 F 06/11/22 08:05 Pulse 68 06/11/22 08:05 Resp 18 06/11/22 08:05 BP 134/82 06/11/22 08:05 Pulse Ox 92 L 06/11/22 08:05 FiO2 Intake & Output 06/10/22 06/11/22 06/11/22 18:59 06:59 18:59 Intake Total 354 Balance 354 Intake: Oral 354 Other: Voiding Method Toilet Toilet Toilet # Voids 1 1 - Exam Patient's mental status, speech and language functions are all normal. Cranial nerves significant for very slight right facial asymmetry. Her visual oneil are full, extraocular muscles are intact. Tongue protrudes the midline. On muscle strength testing, patient has right pronator drift. He drools about 45. The strength is (right/left) deltoid 4+/5, triceps 5/5, biceps 4/5, block saw operator 3+4-/5. Sensory is decreased in both arms, but she believes it is for last 2 years since she had undergone neck surgery. Cerebellar functions revealed ataxia for [id number] testing on the right but not on the left. - Labs CBC & Chem 7: 06/09/22 03:13 06/09/22 03:13 Labs: Abnormal Lab Results - Last 24 Hours (Table) 06/10/22 06/10/22 06/10/22 Range/Units 11:26 16:25 20:12 POC Glucose (mg/dL) 121 H 123 H 155 H (70-110) mg/dL 06/11/22 Range/Units 06:02 POC Glucose (mg/dL) 116 H (70-110) mg/dL Assessment and Plan Assessment: 1. Acute ischemic stroke. MRI of the brain revealed multiple areas of acute to subacute ischemic stroke involving the left parietal, left occipital and right parietal lobes. 2. History of multiple cervical spine surgeries 3. History of DVT Plan: * MRI of brain confirmed multiple areas of acute to subacute ischemia involving the left parietal, left occipital and right parietal lobes. I personally reviewed MRI, agree with the findings. * Carotid Doppler ordered, revealed less than 50% stenosis bilateral carotid bifurcations. Left vertebral had antegrade flow. Right vertebral not visualized. * 2-D echo with bubble study * Hemoglobin A1c 6.8 * Lipid panel with cholesterol 164, LDL 91, HDL 30 and triglycerides 208. Start Lipitor 40 mg at bedtime. * Patient started on dual antiplatelet medication with aspirin 81 mg and Plavix 75 mg daily. Recommend DAP for 21 days, then stop Plavix and continue aspirin indefinitely. * Start Pepcid 20 mg twice a day for gastric ulcer prophylaxis * Telemetric monitoring, rule out arrhythmia. * B12, folate, TSH. * Physical and occupational therapy consultations * DVT prophylaxis: Patient on Lovenox 40 mg subcu daily.
[2022-06-11 11:28] LABS: Glucose,Whole Blood 98 mg/dL (70-110)
[2022-06-11] MEDS: SODIUM CHLORIDE 0.9% 1,000 ML IV SCH ×2 (11:44→20:45)
--- NOTE | 2022-06-11 14:26 | US ---
EXAMINATION TYPE: US venous doppler duplex LE BI DATE OF EXAM: 06/11/2022 2:15 PM COMPARISON: NONE CLINICAL HISTORY: R/O DVTs unclear cause mult areas brain ischemia. DVT SIDE PERFORMED: Bilateral TECHNIQUE: The lower extremity deep venous system is examined utilizing real time linear array sonog yu with graded compression, doppler sonography and color-flow sonography. VESSELS IMAGED: Common Femoral Vein Deep Femoral Vein Greater Saphenous Vein * Femoral Vein Popliteal Vein Small Saphenous Vein * Proximal Calf Veins (* superficial vessels) Right Leg: Negative for DVT Left Leg: Negative for DVT IMPRESSION: Grayscale, color doppler, spectral doppler imaging performed of the deep veins of the lo wer extremities. There is normal flow, compressibility, vascular waveforms.
[2022-06-11 16:25] LABS: Glucose,Whole Blood 130 mg/dL (70-110)
--- NOTE | 2022-06-11 18:14 | P.PN ---
Subjective Progress Note Date: 06/11/22 Hospital course: The patient is a very pleasant 66-year-old female with a past medical history of previous DVT, anxiety, depression, chronic neck pain with cervical DJD, status post 4 cervical spinal surgeries, most recently October 2021 completed at [facility] by Dr. Lucero. Patient presented to the emergency room with complaints of right upper extremity weakness beginning approximately 48 hours prior to arrival in the emergency department. Patient reported she has chronic weakness/numbness/tingling in bilateral upper extremities but states noticing a sudden change resulting in worsening numbness/weakness of right upper extremity which progressively worsened resulting in her coming to the emergency department for evaluation. Patient denied having any recent falls, new surgeries, or increase/changes in her chronic neck and back pain. Patient underwent full evaluation in the emergency department. CBC and CMP showing no significant abnormalities. EKG revealed normal sinus rhythm at 96 bpm with no noted T-wave or ST abnormalities showing no signs of acute ischemia. CT brain revealed age- related atrophic and chronic small vessel ischemic changes without acute intercranial process. Chest x-ray negative for acute cardiopulmonary process. Patient was admitted under our services with consultation to neurology. Hemoglobin A1c elevated at 6.8%. Lipid profile revealing elevated triglycerides of 208, VLDL of 41.6, and low HDL of 30.80. MRI completed revealing multiple areas of acute to subacute ischemia involving the left occipital region, left pa rietal region, and right parietal region. Echo with bubble study to be completed. Patient to continue aspirin, atorvastatin and was started on Plavix by neurology. Physical exam: Patient seen and fully evaluated at bedside. She continues to have right upper extremity weakness extending into her right hand, she has had some improvement but remains unable to make a tight fist or hold anything with right hand. She continues to deny having any headache, lightheadedness, dizziness, chest pain, palpitations, shortness of breath, or any other new complaints at this time. MRI completed yesterday revealed multiple areas of acute to subacute ischemia involving the left occipital region, left parietal region, and right parietal region. Echo with bubble study to be completed. Patient to continue aspirin, atorvastatin and was started on Plavix by neurology. Vital signs reviewed and stable. General: Nontoxic, no distress and appears stated age. Derm: Skin warm and dry, normal coloration for ethnicity. Head: Atraumatic, normocephalic and symmetric. Eyes: EOMs intact, no lid lag, and anicteric sclera Mouth: no lip lesions, mucus membranes moist Cardiovascular: regular rate and rhythm with normal S1S2, no murmur, positive posterior tibial pulses bilaterally, and cap refill < 2 seconds. Lungs: Respirations even, regular, and unlabored on room air. Lungs CTA bilaterally, no rhonchi, no rales, no wheezing, and no accessory muscle usage. Abdominal: soft, nontender to palpation, no guarding, no appreciable organomegaly Ext: Movement and ROM intact with the exception of right upper extremity weakness, weakness and right arm as well as right hand. Patient had difficult time with squeezing and making a fist. Sensation was intact and appeared to be equal bilaterally. No gross muscle atrophy, no edema, no contractures Neuro: Speech clear, face symmetrical and CN II-XII grossly intact with no noted focal neuro deficits Psych: Alert and oriented to person, place, time, and situation. Appropriate and pleasant affect. Assessment and Plan of Care: Acute ischemic CVA with right-sided deficits Right upper extremity weakness -MRI completed yesterday revealed multiple areas of acute to subacute ischemia involving the left occipital region, left parietal region, and right parietal region. -Echo with bubble study to be completed. Pending results may consult cardiology for possible JOHANN -Patient to continue aspirin, atorvastatin and was started on Plavix by neurology. -Continue neuro checks -Neurology following, appreciate recommendations -Telemetry monitoring -PT/OT New-onset diabetes mellitus -Hemoglobin A1c 6.8%, patient will need to be started on metformin upon discharge. -Patient currently on glycemic protocol with NovoLog sliding scale. Hypertriglyceridemia -Patient was started on atorvastatin 40 mg daily. Long-standing history of chronic neck pain with cervical degenerative disc disease and spinal stenosis status post multiple surgical spinal surgeries most recently 10/2021 -Patient to continue to follow up outpatient with her orthospine surgeon, Dr. Lucero History of DVT -DVT prophylaxis with Lovenox History of anxiety and depression -Continue daily medication regimen with Cymbalta and trazodone. CODE STATUS: Full code DVT prophylaxis: Lovenox Discussed with: Patient and RN Anticipated discharge date: Pending clinical course Anticipated discharge place: Home A total of 33 minutes was spent on the care of this complex patient more than 50% of the time was spent in counseling and care coordination. Objective - Vital Signs Vital signs: Vital Signs Temp 98.2 F 06/11/22 04:00 Pulse 66 06/11/22 04:00 Resp 18 06/11/22 04:00 BP 148/76 06/11/22 04:00 Pulse Ox 94 L 06/11/22 04:00 FiO2 Intake & Output 06/10/22 06/11/22 06/11/22 18:59 06:59 18:59 Intake Total 354 Balance 354 Intake: Oral 354 Other: Voiding Method Toilet Toilet # Voids 1 1 - Labs CBC & Chem 7: 06/09/22 03:13 06/09/22 03:13 Labs: Abnormal Lab Results - Last 24 Hours (Table) 06/10/22 06/10/22 06/10/22 Range/Units 11:26 16:25 20:12 POC Glucose (mg/dL) 121 H 123 H 155 H (70-110) mg/dL 06/11/22 Range/Units 06:02 POC Glucose (mg/dL) 116 H (70-110) mg/dL Assessment and Plan Assessment: Attending note Laron Damon NP rendered care for this patient independently, reviewed the findings and plan as documented in the note above. I did not physically speak with our examined the patient on this date.
[2022-06-11 19:29] LABS: Glucose,Whole Blood 118 mg/dL (70-110)
[2022-06-11] MEDS: ATORVASTATIN 40 MG TAB PO SCH (20:45)
[2022-06-11] MEDS: FAMOTIDINE 20 MG TAB PO SCH (20:45)
[2022-06-12 06:08] LABS: Glucose,Whole Blood 127 mg/dL (70-110)
[2022-06-12] MEDS: INSULIN ASPART (NovoLOG) 100 UNIT/ML VIAL SQ SCH ×4 (06:11→20:28)
[2022-06-12] MEDS: SODIUM CHLORIDE 0.9% 1,000 ML IV SCH ×2 (08:20→15:46)
[2022-06-12] MEDS: traZODone HCL 100 MG TAB PO SCH ×2 (08:26→19:55)
[2022-06-12] MEDS: ASPIRIN 81 MG PO SCH (08:26)
[2022-06-12] MEDS: ENOXAPARIN 40 MG/0.4 ML SYRINGE SQ SCH (08:26)
[2022-06-12] MEDS: CALCIUM CARBONATE 500 MG CHEWABLE PO SCH (08:26)
[2022-06-12] MEDS: DULoxetine HCL 60 MG CAPSULE.DR PO SCH (08:26)
[2022-06-12] MEDS: CLOPIDOGREL 75 MG TAB PO SCH (08:26)
[2022-06-12] MEDS: FAMOTIDINE 20 MG TAB PO SCH ×2 (08:26→19:55)
[2022-06-12 11:38] LABS: Glucose,Whole Blood 115 mg/dL (70-110)
--- NOTE | 2022-06-12 14:22 | P.PN ---
Subjective Progress Note Date: 06/11/22 06/11/2022: Patient states she is feeling better. Patient states that she had history of DVT in 2010. She does not remember if she was ever given anticoagulants. She was taking aspirin for some time. However lately she takes aspirin only when she gets a headache, like once a week. She states that she "keeps on forgetting to take aspirin". 06/10/2022: Patient was seen for a follow-up. Patient initially seen by Dr. Machuca. Please refer to her note for details. Patient is a 66-year-old right-handed female, who came to the hospital because she could not move her right arm. Her both legs felt "jiggly wiggly". She did not have any slurred speech, visual disturbance, diplopia. Patient states that her symptoms have much improved. Both legs feel fine, although slightly jiggly. She relates it to not getting out of bed. She has smoked tobacco long time ago, but quit smoking 50 years ago. At home she does not take any aspirin or antiplatelet medication. She denies hypertension or diabetes. Patient states she has history of neck surgery and she has screws in it. She states that it was "too close to her nerve which produced some damage". As a result she has developed decreased sensation in both hands, right more than left for last 2 years. Objective - Vital Signs Vital signs: Vital Signs Temp 98 F 06/11/22 08:05 Pulse 74 06/11/22 15:20 Resp 18 06/11/22 15:20 BP 143/84 06/11/22 15:20 Pulse Ox 95 06/11/22 15:20 FiO2 Intake & Output 06/11/22 06/11/22 06/12/22 06:59 18:59 06:59 Intake Total 120 Balance 120 Intake: Oral 120 Other: Voiding Method Toilet Toilet # Voids 1 3 - Exam Patient's mental status, speech and language functions are all normal. Cranial nerves significant for very slight right facial asymmetry. Her visual oneil are full, extraocular muscles are intact. Tongue protrudes the midline. On muscle strength testing, patient has right pronation, but no drift. The strength is (right/left) deltoid 3+/5, triceps 5/5, biceps 5/5, shoe handler 4/5. In the lower extremities hip flexion 5/5, ankle dorsiflexion 5/5. Sensory is decreased in right arm as compared to the left. Cerebellar functions revealed ataxia for [id number] testing on the right but not on the left. - Labs CBC & Chem 7: 06/09/22 03:13 06/09/22 03:13 Labs: Abnormal Lab Results - Last 24 Hours (Table) 06/10/22 06/11/22 06/11/22 Range/Units 20:12 06:02 16:24 POC Glucose (mg/dL) 155 H 116 H 130 H (70-110) mg/dL Assessment and Plan Assessment: 1. Acute ischemic stroke. MRI of the brain revealed multiple areas of acute to subacute ischemic stroke involving the left parietal, left occipital and right parietal lobes. 2. History of multiple cervical spine surgeries 3. History of DVT Plan: * MRI of brain confirmed multiple areas of acute to subacute ischemia involving the left parietal, left occipital and right parietal lobes. I personally reviewed MRI, agree with the findings. * Carotid Doppler ordered, revealed less than 50% stenosis bilateral carotid bifurcations. Left vertebral had antegrade flow. Right vertebral not visualized. * 2-D echo with bubble study still outstanding. May need JOHANN if the routine EEG is abnormal or nondiagnostic. * Hemoglobin A1c 6.8 * Lipid panel with cholesterol 164, LDL 91, HDL 30 and triglycerides 208. Start Lipitor 40 mg at bedtime. * Patient started on dual antiplatelet medication with aspirin 81 mg and Plavix 75 mg daily. Recommend DAP for 21 days, then stop Plavix and continue aspirin indefinitely. * Start Pepcid 20 mg twice a day for gastric ulcer prophylaxis * Telemetric monitoring, rule out arrhythmia. * Suggest event monitor for 30 days, rule out paroxysmal atrial fibrillation. * B12 356, folate 4.10, TSH 2.5. We will start B12, folate replacement. * Physical and occupational therapy consultations * DVT prophylaxis: Patient on Lovenox 40 mg subcu daily.
[2022-06-12] MEDS: FOLIC ACID 1 MG TAB PO SCH (15:46)
[2022-06-12] MEDS: CYANOCOBALAMIN 500 MCG TAB PO SCH (15:46)
[2022-06-12 16:58] LABS: Glucose,Whole Blood 107 mg/dL (70-110)
--- NOTE | 2022-06-12 17:21 | P.PN ---
Subjective Progress Note Date: 06/12/22 Hospital course: The patient is a very pleasant 66-year-old female with a past medical history of previous DVT, anxiety, depression, chronic neck pain with cervical DJD, status post 4 cervical spinal surgeries, most recently October 2021 completed at [facility] by Dr. Lucero. Patient presented to the emergency room with complaints of right upper extremity weakness beginning approximately 48 hours prior to arrival in the emergency department. Patient reported she has chronic weakness/numbness/tingling in bilateral upper extremities but states noticing a sudden change resulting in worsening numbness/weakness of right upper extremity which progressively worsened resulting in her coming to the emergency department for evaluation. Patient denied having any recent falls, new surgeries, or increase/changes in her chronic neck and back pain. Patient underwent full evaluation in the emergency department. CBC and CMP showing no significant abnormalities. EKG revealed normal sinus rhythm at 96 bpm with no noted T-wave or ST abnormalities showing no signs of acute ischemia. CT brain revealed age- related atrophic and chronic small vessel ischemic changes without acute intercranial process. Chest x-ray negative for acute cardiopulmonary process. Patient was admitted under our services with consultation to neurology. Hemoglobin A1c elevated at 6.8%. Lipid profile revealing elevated triglycerides of 208, VLDL of 41.6, and low HDL of 30.80. MRI completed revealing multiple areas of acute to subacute ischemia involving the left occipital region, left pa rietal region, and right parietal region. Awaiting Echo with bubble study to be completed. Patient to continue aspirin, atorvastatin and was started on Plavix by neurology. Physical exam: Patient seen and fully evaluated at bedside. 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 Patient reports continued tingling sensation in her hand but denies any further numbness throughout her right arm. She continues to deny having any headache, lightheadedness, dizziness, chest pain, palpitations, shortness of breath, or any other new complaints at this time. She is visiting with her at bedside. We are awaiting for Echo with bubble study to be completed Patient to continue aspirin, atorvastatin and Plavix. Vital signs reviewed and stable. General: Nontoxic, no distress and appears stated age. Derm: Skin warm and dry, normal coloration for ethnicity. Head: Atraumatic, normocephalic and symmetric. Eyes: EOMs intact, no lid lag, and anicteric sclera Mouth: no lip lesions, mucus membranes moist Cardiovascular: regular rate and rhythm with normal S1S2, no murmur, positive posterior tibial pulses bilaterally, and cap refill < 2 seconds. Lungs: Respirations even, regular, and unlabored on room air. Lungs CTA bilaterally, no rhonchi, no rales, no wheezing, and no accessory muscle usage. Abdominal: soft, nontender to palpation, no guarding, no appreciable organomegaly Ext: Movement and ROM intact with the exception of right upper extremity weakness, weakness and right arm as well as right hand. Patient had difficult time with squeezing and making a fist. Sensation was intact and appeared to be equal bilaterally. No gross muscle atrophy, no edema, no contractures Neuro: Speech clear, face symmetrical and CN II-XII grossly intact with no noted focal neuro deficits Psych: Alert and oriented to person, place, time, and situation. Appropriate and pleasant affect. Assessment and Plan of Care: Acute ischemic CVA with right-sided deficits Right upper extremity weakness -MRI revealed multiple areas of acute to subacute ischemia involving the left occipital region, left parietal region, and right parietal region. -Echo with bubble study to be completed. Pending results may consult cardiology for possible JOHANN -Patient to continue aspirin, atorvastatin and was started on Plavix by neurology. -Continue neuro checks -Neurology following, appreciate recommendations -Telemetry monitoring -PT/OT New-onset diabetes mellitus -Hemoglobin A1c 6.8%, patient will need to be started on metformin upon discharge. -Patient currently on glycemic protocol with NovoLog sliding scale. Hypertriglyceridemia -Patient was started on atorvastatin 40 mg daily. Long-standing history of chronic neck pain with cervical degenerative disc disease and spinal stenosis status post multiple surgical spinal surgeries most recently 10/2021 -Patient to continue to follow up outpatient with her orthospine surgeon, Dr. Lucero History of DVT -DVT prophylaxis with Lovenox History of anxiety and depression -Continue daily medication regimen with Cymbalta and trazodone. CODE STATUS: Full code DVT prophylaxis: Lovenox Discussed with: Patient, patient's and RN Anticipated discharge date: Pending clinical course Anticipated discharge place: Home A total of 35 minutes was spent on the care of this complex patient more than 50% of the time was spent in counseling and care coordination. Objective - Vital Signs Vital signs: Vital Signs Temp 98.4 F 06/12/22 04:00 Pulse 70 06/12/22 04:00 Resp 18 06/12/22 04:00 BP 144/86 06/12/22 04:00 Pulse Ox 94 L 06/12/22 07:40 FiO2 Intake & Output 06/11/22 06/12/22 06/12/22 18:59 06:59 18:59 Intake Total 120 480 Balance 120 480 Intake: Oral 120 480 Other: Voiding Method Toilet Toilet # Voids 3 2 - Labs CBC & Chem 7: 06/09/22 03:13 06/09/22 03:13 Labs: Abnormal Lab Results - Last 24 Hours (Table) 06/09/22 06/11/22 06/11/22 Range/Units 03:13 16:24 19:28 POC Glucose (mg/dL) 130 H 118 H (70-110) mg/dL Folate 4.10 L (4.40-31.00) ng/mL 06/12/22 Range/Units 06:07 POC Glucose (mg/dL) 127 H (70-110) mg/dL Folate (4.40-31.00) ng/mL Assessment and Plan Assessment: Attending Note Laron Damon NP rendered care for this patient independently, reviewed the findings and plan as documented in the note above. I did not physically speak with our examined the patient on this date.
--- NOTE | 2022-06-12 17:42 | CA ---
Transthoracic Echo Report Name: Monica Menjivar Age: 66 Gender: F : 1955 Exam Date: 06/12/2022 14:50 Exam Location: [facility] Ht (in): 58 Wt (lb): 135 Ordering Physician: July Encinas MD Attending/Referring Phys: Midwife Practitioner Jasmyne Chiang RDCS Procedure CPT: Indications: Bilateral CVA, probably embolic Cardiac Hx: Technical Quality: Fair Contrast 1: Agitated Saline Total Dose (mL): 10 Contrast 2: Total Dose (mL): MEASUREMENTS (Male / Female) Normal Values 2D ECHO LV Diastolic Diameter PLAX 3.5 cm 4.2 - 5.9 / 3.9 - 5.3 cm LV Systolic Diameter PLAX 2.5 cm IVS Diastolic Thickness 1.5 cm 0.6 - 1.0 / 0.6 - 0.9 cm LVPW Diastolic Thickness 1.4 cm 0.6 - 1.0 / 0.6 - 0.9 cm LV Relative Wall Thickness 0.8 LA Volume 32.3 cm??? 18 - 58 / 22 - 52 cm??? DOPPLER AV Peak Velocity 120.3 cm/s AV Peak Gradient 5.8 mmHg MV Area PHT 3.6 cm??? Mitral E Point Velocity 62.0 cm/s Mitral A Point Velocity 101.7 cm/s Mitral E to A Ratio 0.6 MV Deceleration Time 207.9 ms MV E' Velocity 4.6 cm/s Mitral E to MV E' Ratio 13.3 TR Peak Velocity 249.3 cm/s TR Peak Gradient 24.9 mmHg Right Ventricular Systolic Press 29.9 mmHg FINDINGS Left Ventricle Moderately increased septal wall thickness. Moderately increased posterior wall thickness. Normal left ventricular systolic function with no obvious regional wall motion abnormalities. Left ventricular ejection fraction is estimated at 55 %. Right Ventricle Normal right ventricular size and function. Right ventricular systolic pressure within normal limits. Right Atrium Normal right atrial size. Negative agitated saline bubble study for right to left shunt. Left Atrium Normal left atrial size. No evidence for an atrial septal defect. Mitral Valve No mitral stenosis, regurgitation or prolapse. Aortic Valve No aortic valve stenosis or regurgitation. Tricuspid Valve Mild tricuspid regurgitation. Pulmonic Valve Trace pulmonic regurgitation. Pericardium Small pericardial effusion. Aorta Normal size aortic root and proximal ascending aorta. CONCLUSIONS Concentric left ventricular hypertrophy with normal LV function Small pericardial effusion Previewed by: Dr. Nahun Franco MD (Electronically Signed) Final Date: 12 June 2022 17:41
--- NOTE | 2022-06-12 18:47 | CDI ---
Documentation Clarification Form Date: 06/12/2022 06:31:42 PM From: Avril Perea RN, CCDS Admit Date: 06/08/2022 10:12:00 AM Patient Name: Monica Menjivar Visit Number: [id number] Discharge Date: ATTENTION: The Clinical Documentation Specialists (CDI) and [facility] Coding Staff appreciate your assistance in clarifying documentation. Please respond to the clarification below the line at the bottom and electronically sign. The CDI & [facility] Coding staff will review the response and follow-up if needed. Please note: Queries are made part of the Legal Health Record. If you have any questions, please contact the author of this message via ITS. Dr. Deven Morris New onset diabetes is documented in the progress note starting on 06/09/22. Additional specificity regarding the diabetes diagnosis is requested. History/Risk Factors: CVT, Musculoskeletal Disorder, Anxiety, Depression Clinical Indicators: 66-year-old female present for concern for right-sided weakness. 06/08 Lab result: Hemoglobin A1c 6.8 06/09 POC Glucose 121, 140, 06/10 POC Glucose 146, 121, 123, 155 Treatment: Monitor blood sugar Sliding scale insulin (Novolog) Please clarify the type of diabetes, if known: [ ] Diabetes Type 1 [X ] Diabetes Type 2 [ ] Other, please specify [ ] Unable to Determine (Template Last Revised: August 2020) New-onset diabetes mellitus type II Dictated By: Laron Damon Signed By: <Electronically signed by Laron KULKARNI> 06/13/22 1152 MTDD
[2022-06-12] MEDS: ATORVASTATIN 40 MG TAB PO SCH (19:55)
[2022-06-12 19:59] LABS: Glucose,Whole Blood 125 mg/dL (70-110)
[2022-06-13 06:27] LABS: Glucose,Whole Blood 121 mg/dL (70-110)
[2022-06-13] MEDS: SODIUM CHLORIDE 0.9% 1,000 ML IV SCH ×2 (06:27→08:36)
[2022-06-13] MEDS: INSULIN ASPART (NovoLOG) 100 UNIT/ML VIAL SQ SCH ×2 (06:29→11:53)
[2022-06-13] MEDS: CALCIUM CARBONATE 500 MG CHEWABLE PO SCH (08:32)
[2022-06-13] MEDS: DULoxetine HCL 60 MG CAPSULE.DR PO SCH (08:32)
[2022-06-13] MEDS: CLOPIDOGREL 75 MG TAB PO SCH (08:32)
[2022-06-13] MEDS: FAMOTIDINE 20 MG TAB PO SCH (08:32)
[2022-06-13] MEDS: traZODone HCL 100 MG TAB PO SCH (08:32)
[2022-06-13] MEDS: ASPIRIN 81 MG PO SCH (08:32)
[2022-06-13] MEDS: ENOXAPARIN 40 MG/0.4 ML SYRINGE SQ SCH (08:32)
[2022-06-13] MEDS: FOLIC ACID 1 MG TAB PO SCH (08:32)
[2022-06-13] MEDS: CYANOCOBALAMIN 500 MCG TAB PO SCH (08:32)
--- NOTE | 2022-06-13 09:59 | P.PN ---
Subjective Progress Note Date: 06/12/22 06/12/2022: Patient states she is feeling better. Denies any headache or dizziness. Telemetry monitoring showing sinus rhythm in the 80s with some PVCs. 06/11/2022: Patient states she is feeling better. Patient states that she had history of DVT in 2010. She does not remember if she was ever given anticoagulants. She was taking aspirin for some time. However lately she takes aspirin only when she gets a headache, like once a week. She states that she "keeps on forgetting to take aspirin". 06/10/2022: Patient was seen for a follow-up. Patient initially seen by Dr. Machuca. Please refer to her note for details. Patient is a 66-year-old right-handed female, who came to the hospital because she could not move her right arm. Her both legs felt "jiggly wiggly". She did not have any slurred speech, visual disturbance, diplopia. Patient states that her symptoms have much improved. Both legs feel fine, although slightly jiggly. She relates it to not getting out of bed. She has smoked tobacco long time ago, but quit smoking 50 years ago. At home she does not take any aspirin or antiplatelet medication. She denies hypertension or diabetes. Patient states she has history of neck surgery and she has screws in it. She states that it was "too close to her nerve which produced some damage". As a result she has developed decreased sensation in both hands, right more than left for last 2 years. Objective - Vital Signs Vital signs: Vital Signs Temp 97.8 F 06/12/22 08:25 Pulse 79 06/12/22 11:40 Resp 17 06/12/22 11:40 BP 125/82 06/12/22 11:40 Pulse Ox 93 L 06/12/22 11:40 FiO2 Intake & Output 06/11/22 06/12/22 06/12/22 18:59 06:59 18:59 Intake Total 120 480 Balance 120 480 Intake: Oral 120 480 Other: Voiding Method Toilet Toilet Toilet # Voids 3 2 2 - Exam Patient's mental status, speech and language functions are all normal. Cranial nerves significant for very slight right facial asymmetry. Her visual oneil are full, extraocular muscles are intact. Tongue protrudes the midline. On muscle strength testing, patient has no pronator drift. The strength is (right/left) deltoid 5/5, triceps 5/5, biceps 5/5, air traffic systems technician 5-/5. In the lower extremities hip flexion 5/5, ankle dorsiflexion 5/5. Sensory is decreased in right arm as compared to the left. Cerebellar functions revealed ataxia for [id number] testing on the right but not on the left. - Labs CBC & Chem 7: 06/09/22 03:13 06/09/22 03:13 Labs: Abnormal Lab Results - Last 24 Hours (Table) 06/09/22 06/11/22 06/11/22 Range/Units 03:13 16:24 19:28 POC Glucose (mg/dL) 130 H 118 H (70-110) mg/dL Folate 4.10 L (4.40-31.00) ng/mL 06/12/22 06/12/22 Range/Units 06:07 11:37 POC Glucose (mg/dL) 127 H 115 H (70-110) mg/dL Folate (4.40-31.00) ng/mL Assessment and Plan Assessment: 1. Acute ischemic stroke. MRI of the brain revealed multiple areas of acute to subacute ischemic stroke involving the left parietal, left occipital and right parietal lobes. 2. History of multiple cervical spine surgeries 3. History of DVT Plan: * Patient's examination has much improved. Her strength is almost back to baseline. * MRI of brain confirmed multiple areas of acute to subacute ischemia involving the left parietal, left occipital and right parietal lobes. I personally reviewed MRI, agree with the findings. * Carotid Doppler ordered, revealed less than 50% stenosis bilateral carotid bifurcations. Left vertebral had antegrade flow. Right vertebral not visualized. * 2-D echo with bubble study reveals concentric left ventricular hypertrophy with normal left ventricular systolic function with EF 55%. Moderate increased posterior wall thickness. Left atrial size is normal. No obvious embolic source. * Hemoglobin A1c 6.8 * Lipid panel with cholesterol 164, LDL 91, HDL 30 and triglycerides 208. Start Lipitor 40 mg at bedtime. * Patient started on dual antiplatelet medication with aspirin 81 mg and Plavix 75 mg daily. Recommend DAP for 21 days, then stop Plavix and continue aspirin indefinitely. * Start Pepcid 20 mg twice a day for gastric ulcer prophylaxis * Telemetric monitoring showing sinus rhythm, with some PVCs. * Suggest event monitor for 30 days, rule out paroxysmal atrial fibrillation. * B12 356, folate 4.10, TSH 2.5. We will start B12, folate replacement. * Physical and occupational therapy consultations * Neurologically clear for discharge. May follow up with neurologist as an outpatient.
[2022-06-13 11:43] LABS: Glucose,Whole Blood 205 mg/dL (70-110)
--- NOTE | 2022-06-13 11:52 | P.PN ---
Subjective Progress Note Date: 06/13/22 Hospital course: The patient is a very pleasant 66-year-old female with a past medical history of previous DVT, anxiety, depression, chronic neck pain with cervical DJD, status post 4 cervical spinal surgeries, most recently October 2021 completed at [facility] by Dr. Lucero. Patient presented to the emergency room with complaints of right upper extremity weakness beginning approximately 48 hours prior to arrival in the emergency department. Patient reported she has chronic weakness/numbness/tingling in bilateral upper extremities but states noticing a sudden change resulting in worsening numbness/weakness of right upper extremity which progressively worsened resulting in her coming to the emergency department for evaluation. Patient denied having any recent falls, new surgeries, or increase/changes in her chronic neck and back pain. Patient underwent full evaluation in the emergency department. CBC and CMP showing no significant ab normalities. EKG revealed normal sinus rhythm at 96 bpm with no noted T-wave or ST abnormalities showing no signs of acute ischemia. CT brain revealed age- related atrophic and chronic small vessel ischemic changes without acute intercranial process. Chest x-ray negative for acute cardiopulmonary process. Patient was admitted under our services with consultation to neurology. Hemoglobin A1c elevated at 6.8%. Lipid profile revealing elevated triglycerides of 208, VLDL of 41.6, and low HDL of 30.80. MRI completed revealing multiple areas of acute to subacute ischemia involving the left occipital region, left parietal region, and right parietal region. Awaiting Echo with bubble study to be completed. Patient to continue aspirin, atorvastatin and was started on Plavix by neurology. Physical exam: Patient seen and fully evaluated at bedside this morning. She continues to have improvement in right arm weakness and continues to have have a firm etiology teacher with right hand 4/5 on right side when compared to 5/5 on left. Patient reports continued tingling sensation in her hand but continues to deny any further numbness throughout her right arm or hand. Echo with bubble study negative ruling out a PFO. Patient to receive Holter monitor, glucometer, diabetes education and will plan for discharge home within the next 24 hours. Neurology clearing patient recommending continued aspirin indefinitely until antiplatelet therapy with Plavix and aspirin for the next 21 days. In addition patient will be discharged home on atorvastatin 40 mg daily and metformin 500 mg twice daily. Vital signs reviewed and stable. General: Nontoxic, no distress and appears stated age. Derm: Skin warm and dry, normal coloration for ethnicity. Head: Atraumatic, normocephalic and symmetric. Eyes: EOMs intact, no lid lag, and anicteric sclera Mouth: no lip lesions, mucus membranes moist Cardiovascular: regular rate and rhythm with normal S1S2, no murmur, positive posterior tibial pulses bilaterally, and cap refill < 2 seconds. Lungs: Respirations even, regular, and unlabored on room air. Lungs CTA bilaterally, no rhonchi, no rales, no wheezing, and no accessory muscle usage. Abdominal: soft, nontender to palpation, no guarding, no appreciable organomegaly Ext: Movement and ROM intact with the exception of right upper extremity weakness, weakness and right arm as well as right hand. Patient had difficult time with squeezing and making a fist. Sensation was intact and appeared to be equal bilaterally. No gross muscle atrophy, no edema, no contractures Neuro: Speech clear, face symmetrical and CN II-XII grossly intact with no noted focal neuro deficits Psych: Alert and oriented to person, place, time, and situation. Appropriate and pleasant affect. Assessment and Plan of Care: Acute ischemic CVA with right-sided deficits Right upper extremity weakness -MRI revealed multiple areas of acute to subacute ischemia involving the left occipital region, left parietal region, and right parietal region. -Echo with bubble study to be completed. Pending results may consult cardiology for possible JOHANN -Patient to continue aspirin, atorvastatin and was started on Plavix by neurology. -Continue neuro checks -Neurology following, appreciate recommendations -Telemetry monitoring -PT/OT New-onset diabetes mellitus type II -Hemoglobin A1c 6.8%, patient will need to be started on metformin upon discharge. -Patient currently on glycemic protocol with NovoLog sliding scale and will be discharged home with glucometer, glucose monitoring supplies, and metformin 500 mg twice daily. Hypertriglyceridemia -Patient was started on atorvastatin 40 mg daily. Long-standing history of chronic neck pain with cervical degenerative disc disease and spinal stenosis status post multiple surgical spinal surgeries most recently 10/2021 -Patient to continue to follow up outpatient with her orthospine surgeon, Dr. Lucero History of DVT -DVT prophylaxis with Lovenox History of anxiety and depression -Continue daily medication regimen with Cymbalta and trazodone. CODE STATUS: Full code DVT prophylaxis: Lovenox Discussed with: Patient, patient's and RN Anticipated discharge date: Discharge within the next [address]: Home A total of 34 minutes was spent on the care of this complex patient more than 50% of the time was spent in counseling and care coordination. Attending Note Laron Damon NP rendered care for this patient independently, reviewed the findings and plan as documented in the note above. I did not physically speak with our examined the patient on this date. Objective - Vital Signs Vital signs: Vital Signs Temp 98.4 F 06/13/22 04:00 Pulse 79 06/13/22 04:00 Resp 18 06/13/22 04:00 BP 141/86 06/13/22 04:00 Pulse Ox 98 06/13/22 07:25 FiO2 Intake & Output 06/12/22 06/13/22 06/13/22 18:59 06:59 18:59 Intake Total 120 480 Balance 120 480 Intake: Oral 120 480 Other: Voiding Method Toilet Toilet # Voids 2 2 - Labs CBC & Chem 7: 06/09/22 03:13 06/09/22 03:13 Labs: Abnormal Lab Results - Last 24 Hours (Table) 06/12/22 06/12/22 06/13/22 Range/Units 11:37 19:57 06:17 POC Glucose (mg/dL) 115 H 125 H 121 H (70-110) mg/dL
[2022-06-13 15:17] VITALS: BP 132/67; PULSE 72; RESP 16; TEMP 98
--- NOTE | 2022-06-13 15:34 | P.DS ---
Providers Date of admission: 06/08/22 10:12 Expected date of discharge: 06/13/22 Attending physician: Lady Mosher MD Consults: 06/08/22 10:13 Consult Physician Routine Consulting Provider: Daniel Farooq Consult Reason/Comments: eval for cva, r arm weak Do you want consulting provider notified?: Yes Primary care physician: [facility] Course: Discharge Diagnosis: Acute ischemic CVA with right-sided deficits, MRI revealed multiple areas of acute to subacute ischemia involving the left occipital region, left parietal region, and right parietal region. Echo with bubble study completed ruling out PFO. Patient being discharged home on a Holter monitor to rule out underlying arrhythmia such as atrial fibrillation that was not reported as captured on any telemetry during hospital stay. Bilateral lower extremity Dopplers negative for DVT. Carotid Dopplers negative showing less than 50% stenosis of bilateral carotid bifurcations. Right upper extremity weakness, improving. Resulting from acute ischemic CVA. Patient to continue with physical therapy upon discharge. New-onset diabetes mellitus type II. Hemoglobin A1c 6.8%, Patient was provided with diabetes education, glucometer and testing supplies and was able to demonstrate usage and understanding correctly, patient was started on metformin and instructed on carb consistent and heart healthy dietary changes. Hypertriglyceridemia. Patient was started on atorvastatin 40 mg daily. Long-standing history of chronic neck pain with cervical degenerative disc disease and spinal stenosis status post multiple surgical spinal surgeries most recently 10/2021. Patient to continue pain medication regimen with Tylenol as directed and to to follow up outpatient with her orthospine surgeon, Dr. Lucero History of DVT, patient was discharged home on dual and aspirin secondary to acute ischemic CVA. Bilateral lower extremity Dopplers negative for DVT. Patient discharged home on Holter monitor to rule out underlying atrial fibrillation. History of anxiety and depression. Continue daily medication regimen with Cymbalta and trazodone. Hospital Course: The patient is a very pleasant 66-year-old female with a past medical history of previous DVT, anxiety, depression, chronic neck pain with cervical DJD, status post 4 cervical spinal surgeries, most recently October 2021 completed at [facility] by Dr. Lucero. Patient presented to the emergency room with complaints of right upper extremity weakness beginning approximately 48 hours prior to arrival in the emergency department. Patient reported she has chronic weakness/numbness/tingling in bilateral upper extremities but states noticing a sudden change resulting in worsening numbness/weakness of right upper extremity which progressively worsened resulting in her coming to the emergency department for evaluation. Patient denied having any recent falls, new surgeries, or increase/changes in her chronic neck and back pain. Patient underwent full evaluation in the emergency department. CBC and CMP showing no significant abnormalities. EKG revealed normal sinus rhythm at 96 bpm with no noted T-wave or ST abnormalities showing no signs of acute ischemia. CT brain revealed age- related atrophic and chronic small vessel ischemic changes without acute intercranial process. Chest x-ray negative for acute cardiopulmonary process. Patient was admitted under our services with consultation to neurology. Hemoglobin A1c elevated at 6.8%. Lipid profile revealing elevated triglycerides of 208, VLDL of 41.6, and low HDL of 30.80. MRI completed revealing multiple areas of acute to subacute ischemia involving the left occipital region, left parietal region, and right parietal region. Echocardiogram with bubble study was completed ruling out PFO. Patient has been cleared by neurology for discharge at this time recommending outpatient follow-up with neurologist and continuation of dual antiplatelet therapy with aspirin and Plavix for 21 days followed by aspirin indefinitely. Patient has been started on multiple medications during this admission including aspirin, Plavix, atorvastatin, and metformin. She has been newly diagnosed with diabetes mellitus type 2 with hemoglobin A1c of 6.8%. Arrangements have been made for glucometer and glucose testing supplies and patient started on metformin for treatment of this. Order was placed for 30 day Holter monitor to rule out underlying atrial fibrillation which was not reported to be captured during hospital stay and patient denies history of or any indications including any previous palpitations. Holter monitor was delivered to patient's room and placed on patient, landscape management technician educated patient on importance of wearing at all times and usage of this monitor. Patient is medically stable for discharge at this time, plans to follow up outpatient for physical therapy. Patient being discharged home with her , prescriptions sent to [facility], and patient to follow up outpatient with PCP, neurology, and cardiology. Physical exam: Vital signs reviewed and stable. General: Nontoxic, no distress and appears stated age. Derm: Skin warm and dry, normal coloration for ethnicity. Head: Atraumatic, normocephalic and symmetric. Eyes: EOMs intact, no lid lag, and anicteric sclera Mouth: no lip lesions, mucus membranes moist Cardiovascular: regular rate and rhythm with normal S1S2, no murmur, positive posterior tibial pulses bilaterally, and cap refill < 2 seconds. Lungs: Respirations even, regular, and unlabored on room air. Lungs CTA bilaterally, no rhonchi, no rales, no wheezing, and no accessory muscle usage. Abdominal: soft, nontender to palpation, no guarding, no appreciable organomegaly Ext: Movement and ROM intact with the exception of right upper extremity weakness, weakness and right arm as well as right hand. Patient had difficult time with squeezing and making a fist. Sensation was intact and appeared to be equal bilaterally. No gross muscle atrophy, no edema, no contractures Neuro: Speech clear, face symmetrical and CN II-XII grossly intact with no noted focal neuro deficits Psych: Alert and oriented to person, place, time, and situation. Appropriate and pleasant affect. A total of 39 minutes of time were spent preparing this complex discharge summary. Pt was discharged on 06/13/22 at 3:21 PM Attending Note Laron Damon NP rendered care for this patient independently, reviewed the findings and plan as documented in the note above. I did not physically speak with our examined the patient on this date. Patient Condition at Discharge: Stable Plan - Discharge Summary Discharge Rx Participant: No New Discharge Prescriptions: New Clopidogrel [Plavix] 75 mg PO DAILY 21 Days #21 tab Aspirin 81 mg PO DAILY 90 Days #90 tab metFORMIN HCL [Glucophage] 500 mg PO BID 30 Days #60 tab Atorvastatin [Lipitor] 40 mg PO HS 30 Days #30 tab Continue predniSONE See Taper PO DAILY DULoxetine HCL [Cymbalta] 60 mg PO DAILY Celecoxib [CeleBREX] 200 mg PO DAILY traZODone HCL [Desyrel] 100 mg PO HS Discontinued Sulfamethox-Tmp 800-160Mg [Bactrim DS 800-160 mg] 1 tab PO BID Discharge Medication List Celecoxib [CeleBREX] 200 mg PO DAILY 11/06/20 [History] traZODone HCL [Desyrel] 100 mg PO HS 01/02/22 [History] DULoxetine HCL [Cymbalta] 60 mg PO DAILY 06/08/22 [History] predniSONE See Taper PO DAILY 06/08/22 [History] Aspirin 81 mg PO DAILY 90 Days #90 tab 06/13/22 [Rx] Atorvastatin [Lipitor] 40 mg PO HS 30 Days #30 tab 06/13/22 [Rx] Clopidogrel [Plavix] 75 mg PO DAILY 21 Days #21 tab 06/13/22 [Rx] metFORMIN HCL [Glucophage] 500 mg PO BID 30 Days #60 tab 06/13/22 [Rx] Follow up Appointment(s)/Referral(s): Murali Umana MD [Primary Care Provider] - 06/20/22 2:20 pm Mariano Miranda MD [STAFF PHYSICIAN] - 1 Week (Will need to follow up in cardiology office. Holter monitor placed prior to discharge. Office will call you with an appointment date/time. ) Kandis Nicolas MD [REFERRING] - 1 Week (Office to call you with appointment.) Patient Instructions/Handouts: Type 2 Diabetes in Adults: New Diagnosis (DC), Basic Carbohydrate Counting (GEN), Meal Planning with Diabetes Exchanges (DC), Ischemic Stroke (DC), Ischemic Stroke (GEN), Self Care Measures After a Stroke (DC) Activity/Diet/Wound Care/Special Instructions: Activity: As tolerated. Take breaks as needed. Physical therapy recommending a quad cane for ambulation - may purchase one at [facility] for $60 - insurance will not cover due to you recently obtaining a walker Diet: Heart healthy and carb consistent diet. Avoid salts, or foods with hidden salts such as canned or boxed foods and frozen dinners. Extra salt makes your heart work harder and traps the fluid in your body for longer. Special Instructions: Take all of your medications as directed and remember to keep all of your doctor's appointments and follow-up as needed. Remember to monitor your blood glucose levels daily and document these findings and a daily log/journal to bring with you to your next doctor's appointment. Please continue to wear Holter monitor at all times as directed and reviewed with you by landscape management technician, you will need to follow up outpatient with home manager Dr. Miranda. Thank you for allowing us to participate in your care, it was truly a pleasure having you for our patient!!! Discharge Disposition: HOME SELF-CARE
== END 2022-06-13 16:45 | disposition home or self-care (01) | DRG 66 ==
LOC: EC 08:21 → 3SCARD 10:12
PROVIDERS: ADMIT Internal Medicine; ATTEND Internal Medicine
DX: I63.9 Cerebral infarction, unspecified (principal); E78.1 Pure hyperglyceridemia; E11.9 Type 2 diabetes mellitus without complications; F32.A Depression, unspecified; Z71.6 Tobacco abuse counseling; I07.1 Rheumatic tricuspid insufficiency; M47.892 Other spondylosis, cervical region; F41.9 Anxiety disorder, unspecified; R29.6 Repeated falls; G89.29 Other chronic pain; I49.3 Ventricular premature depolarization; M21.511 Acquired clawhand, right hand; Z79.1 Long term (current) use of non-steroidal anti-inflammatories (NSAID); Z79.82 Long term (current) use of aspirin; Z79.899 Other long term (current) drug therapy; Z86.718 Personal history of other venous thrombosis and embolism; Z87.891 Personal history of nicotine dependence; Z90.710 Acquired absence of both cervix and uterus; Z98.84 Bariatric surgery status; Z91.81 History of falling
CPT/HCPCS: 36415; 70450; 70551; 71046; 80053; 80061; 82607; 82746; 83036; 83735; 84443; 85025; 85610; 85730; 93005; 93270; 93306; 93880; 93970; 94760

== ENCOUNTER → 2023-06-03 | Outpatient (CLI) | payer MEDICARE, OTHER ==
--- NOTE | 2023-06-03 18:41 | BD ---
EXAMINATION TYPE: Axial Bone Density DATE OF EXAM: 06/03/2023 CLINICAL HISTORY: 67 years old Female. ICD-10 CODE: M89.9 DISORDER OF BONE Height: 4 ft 8 in Weight: 128 FRAX RISK QUESTIONS: Alcohol (3 or more units per day): no Family History (Parent hip fracture): no Glucocorticoids (More than 3mos): no (Ex: prednisone, prednisolone, methylprednisolone, dexamethasone, and hydrocortisone). History of Fracture in Adulthood: yes Secondary Osteoporosis: 1. Type 1 Diabetes: type 2 2. Hyperthyroidism: no 3. Menopause before 45: no 4. Malnutrition: no 5. Chronic liver disease: no Rheumatoid Arthritis: no Current Tobacco Use: no RISK FACTORS HISTORY OF: History of Wrist Fracture: rt wrist When: as a child Surgery to Spine/Hip(right/left)/Wrist (right/left): cspine x 6, tspine When: most recent 2021, t spine 2021 Family History of Osteoporosis: no Active: yes Diet low in dairy products/other sources of calcium: no Postmenopausal woman: yes Take estrogen and/or progesterone medications: no Lost more than 2 inches in height since high school: yes 5 1/2 inches lost Frequent falls: yes Poor Health: good Hyperparathyroidism: no Adrenal Insufficiency: no MEDICATIONS: Additional Medications: Trazodone, [place], Cymbalta, celebrex, Lipitor Additional History: lumbar spine could not be done as lap band sits over spine EXAM MEASUREMENTS: Bone mineral density about the R hip (g/cm2): 0.673 Bone mineral density about the L hip (g/cm2): 0.676 T Score values are as follows: -----R Neck: -2.6 -----L Neck: -2.6 -----R Total: -1.7 -----L Total: -1.6 Z Score values are as follows: -----R Neck: -0.8 -----L Neck: -0.8 -----R Total: -0.1 -----L Total: 0.1 prev done at [facility] Bone mineral density about the L Wrist (g/cm2): 0.491 T Score values are as follows: -----Dist. R+U: -2.2 -----Prox. R+U: -3.0 -----Radius total: -3.0 Z Score values are as follows: -----Dist. R+U: -0.4 -----Prox. R+U: -1.2 -----Radius total: -1.2 prev done at [facility] FRAX%s: The graph provided illustrates a 23.8 % chance for a major osteoporotic fx and a 6.4 % chance for the hips probability for fx in 10 years time. IMPRESSION: Osteoporosis (T Score less than -2.5). There is increased fracture risk and therapy is usually indicated based on age. Re-Screen 1-2 years. NOTE: T-SCORE=SD OF THE YOUNG ADULT MEAN.
--- NOTE | 2023-06-05 12:07 | MM ---
Reason for Exam: Screening (asymptomatic). Last mammogram was performed 2 year(s) and 9 month(s) ago. Patient History: Menarche at age 10. First Full-Term at age 16. Hysterectomy at age 27. Postmenopausal. 1989, Excisional Biopsy on the Right side. Risk Values: Toshia 5 year model risk: 1.5%. NCI Lifetime model risk: 4.5%. Prior Study Comparison: 11/18/2011 Right Diagnostic Ultrasound, [facility]. 09/19/2020 Bilateral Screening Mammogram, [facility]. Tissue Density: There are scattered fibroglandular densities. Findings: Analyzed By CAD. There is no suspicious group of microcalcifications or new suspicious mass in either breast. Overall Assessment: Benign, BI-RAD 2 Management: Screening Mammogram of both breasts in 1 year. . Patient should continue monthly self-breast exams. A clinical breast exam by your physician is recommended on an annual basis. This exam should not preclude additional follow-up of suspicious palpable abnormalities. Note on Toshia scores and lifetime risk: 1. A Toshia score greater than 3% is considered moderate risk. If this is the case, consider specialist referral to assess eligibility for a risk reducing agent. 2. If overall lifetime risk for the development of breast cancer is 20% or higher, the patient may qualify for future screening with alternating mammogram and breast MRI. Electronically signed and approved by: Malcom Pickard M.D. Radiologis
== END | disposition home or self-care (01) ==
LOC: RADMAMWWP 13:04
PROVIDERS: ATTEND Family Medicine
DX: Z12.31 Encounter for screening mammogram for malignant neoplasm of breast (principal); M81.0 Age-related osteoporosis without current pathological fracture; M89.9 Disorder of bone, unspecified; Z78.0 Asymptomatic menopausal state
CPT/HCPCS: 77063; 77067; 77080

== ENCOUNTER 2024-03-30 10:22 | Emergency (ER) | payer MEDICARE, OTHER ==
[2024-03-30 10:33] VITALS: RESP 16; TEMP 97.8
[2024-03-30 11:17] LABS: HGB 15.6 gm/dL (11.4-16.0); MCH 28.6 pg (25.0-35.0); MCHC 32.4 g/dL (31.0-37.0); MCV 88.1 fL (80.0-100.0); Mean Platelet Volume 8.5; Platelet Count 277 k/uL (150-450); RBC 5.45 m/uL (3.80-5.40); RDW 14.2 % (11.5-15.5); WBC 12.2 k/uL (3.8-10.6)
--- NOTE | 2024-03-30 11:17 | ED ---
GI Bleed HPI - General Chief complaint: GI Bleed Stated complaint: GI Bleed Time Seen by Provider: 03/30/24 10:42 Source: patient, RN notes reviewed Mode of arrival: ambulatory Limitations: no limitations - History of Present Illness Initial comments: This is a 68-year-old female who presents to the emergency department for rectal bleeding and abdominal pain. States that over the last couple of days she has had bright red blood in her stool with lower abdominal pain. States that when she feels like she is going to pass gas, sometimes only blood comes out. She did have a similar problem several years ago and was told that it was related to colitis. Not taking any blood thinners. Denies any nausea or vomiting associated with this. Denies any dizziness or lightheadedness. - Related Data Home Medications Medication Instructions Recorded Confirmed traZODone HCL [Desyrel] 100 mg PO HS 01/02/22 03/30/24 DULoxetine HCL [Cymbalta] 60 mg PO DAILY 06/08/22 03/30/24 Cholecalciferol [Vitamin D3 (25 25 mcg PO DAILY 03/30/24 03/30/24 Mcg = 1000 Iu)] Cyclobenzaprine [Flexeril] 10 mg PO BID 03/30/24 03/30/24 Gabapentin [Neurontin] 400 mg PO TID 03/30/24 03/30/24 oxyCODONE-APAP 7.5-325MG [Percocet 1 tab PO Q6HR PRN 03/30/24 03/30/24 7.5-325 mg] Previous Rx's Medication Instructions Recorded Atorvastatin [Lipitor] 40 mg PO HS 30 Days #30 tab 06/13/22 Amoxic-Pot Clav 875-125Mg 1 tab PO BID 10 Days #20 tab 03/30/24 [Augmentin 875-125] Allergies Allergy/AdvReac Type Severity Reaction Status Date / Time No Known Allergies Allergy Verified 03/30/24 13:59 Review of Systems ROS Statement: Those systems with pertinent positive or pertinent negative responses have been documented in the HPI. ROS Other: All systems not noted in ROS Statement are negative. Past Medical History Past Medical History: Deep Vein Thrombosis (DVT), Musculoskeletal Disorder Additional Past Medical History / Comment(s): Multiple cervical spine surgeries with 2 of [address] Torres 10 and 11 years ago. And for more done with Dr. Seo at [facility] in January, February, April 2021 and again in October 2021. chronic neck and back pain DVT (2012) History of Any Multi-Drug Resistant Organisms: None Reported Past Surgical History: Section, Hysterectomy Additional Past Surgical History / Comment(s): neck surgeryx6 , L foot, L leg thrombectomy, Lap Band Past Psychological History: Anxiety, Depression Smoking Status: Former smoker Past Alcohol Use History: None Reported Past Drug Use History: None Reported - Past Family History Father Family Medical History: Hyperlipidemia General Exam Limitations: no limitations General appearance: alert, in no apparent distress Head exam: Present: atraumatic, normocephalic, normal inspection Respiratory exam: Present: normal lung sounds bilaterally. Absent: respiratory distress, wheezes, rales, rhonchi, stridor Cardiovascular Exam: Present: regular rate, normal rhythm, normal heart sounds. Absent: systolic murmur, diastolic murmur, rubs, gallop, clicks GI/Abdominal exam: Present: soft, tenderness (Lower abdomen), normal bowel s ounds. Absent: distended Neurological exam: Present: alert, oriented X3, CN II-XII intact Psychiatric exam: Present: normal affect, normal mood Skin exam: Present: warm, dry, intact, normal color. Absent: rash Course Vital Signs 03/30/24 03/30/24 10:29 13:11 Temperature 97.8 F Pulse Rate 92 85 Respiratory 16 16 Rate Blood Pressure 133/76 142/90 O2 Sat by Pulse 96 98 Oximetry Medical Decision Making - Medical Decision Making This is a 68 year old female who presents to the emergency department for abdominal pain and rectal bleeding. Was pt. sent in by a medical professional or institution? @ -No Did you speak to anyone other than the patient for history? @ -No Did you review nursing and triage notes? @ -Yes, and I agree, it is accurate with regards to the patient's symptoms. Were old charts reviewed? @ -No Differential Diagnosis? @ -Differential GI Bleed: Esophageal varices, aortoenteric fistula, Maryse-Frye, gastritis, peptic ulcer disease, diverticulosis, inflammatory bowel disease, hemorrhoids, fissure, colitis, malignancy, Meckel's diverticulum, this is not meant to be an all- inclusive list. EKG interpreted by me (3pts min.)? @ -Not obtained X-rays interpreted by me (1pt min.)? @ -Not obtained CT interpreted by me (1pt min.)? @ -CT scan of the abdomen and pelvis obtained. My interpretation identifies wall thickening along the sigmoid colon. U/S interpreted by me (1pt. min.)? @ -Not obtained What testing was considered but not performed? (CT, X-rays, U/S, labs)? Why? @ -None What meds were considered but not given? Why? @ -None Did you discuss the management of the patient with other professionals? @ -No Did you reconcile home meds? @ -No Was smoking cessation discussed for >3mins.? @ -No Was critical care preformed (if so, how long)? @ -No Were there social determinants of health that impacted care today? How? (Homelessness, low income, unemployed, alcoholism, drug addiction, transportation, low edu. Level, literacy, decrease access to med. care, halfway, rehab)? @ -No Was there de-escalation of care discussed even if they declined? (Discuss DNR or withdrawal of care, Hospice)? @ -No What co-morbidities impacted this encounter? (DM, HTN, Smoking, COPD, CAD, Cancer, CVA, Hep., AIDS, mental health diagnosis, sleep apnea, morbid obesity)? @ -Diverticulosis Was patient admitted / discharged? @ -Discharged. Lab work demonstrates mild leukocytosis. Hemoglobin within normal limits. Lab work otherwise unremarkable. CT scan of the abdomen and pelvis demonstrates inflammatory changes and wall thickening along the sigmoid colon with diverticula suggestive of either acute colitis and/or uncomplicated diverticulitis. Findings reviewed with the patient. States that this caused the bleeding last time. Advised we do not have GI available at this facility and she would need to be transferred out to be admitted. States that she feels well and the bleeding is not severe. She does not feel admission is necessary and would like to try outpatient management first. Prescription for Augmentin provided. Advised follow-up with her primary care provider. Patient discharged home in stable condition. Case discussed with ED attending Dr. Flynn. Return precautions reviewed in depth, the patient is instructed to return to the emergency department with any new, worsening, or concerning symptoms. Patient verbalized understanding. Undiagnosed new problem with uncertain prognosis? @ -None Drug Therapy requiring intensive monitoring for toxicity (Heparin, Nitro, Insulin, Cardizem)? @ -None Were any procedures done? @ -None Diagnosis/symptom? @ -Diverticulitis Acute, or Chronic, or Acute on Chronic? @ -Acute Uncomplicated (without systemic symptoms) or Complicated (systemic symptoms)? @ -Uncomplicated Side effects of treatment? @ -None Exacerbation, Progression, or Severe Exacerbation] @ -Not applicable Poses a threat to life or bodily function? @ -No - Lab Data Result diagrams: 03/30/24 10:56 03/30/24 10:56 Lab Results 03/30/24 03/30/24 03/30/24 Range/Units 10:56 10:56 10:56 WBC 12.2 H (3.8-10.6) k/uL RBC 5.45 H (3.80-5.40) m/uL Hgb 15.6 (11.4-16.0) gm/dL Hct 48.0 H (34.0-46.0) % MCV 88.1 (80.0-100.0) fL MCH 28.6 (25.0-35.0) pg MCHC 32.4 (31.0-37.0) g/dL RDW 14.2 (11.5-15.5) % Plt Count 277 (150-450) k/uL MPV 8.5 Neutrophils % [employer] Lymphocytes % [employer] Monocytes % [employer] Eosinophils % [employer] Basophils % [employer] Neutrophils # [employer] Lymphocytes # [employer] Monocytes # [employer] Eosinophils # [employer] Basophils # [employer] PT 9.8 L (10.0-12.5) sec INR 0.9 (<1.2) APTT 23.0 (22.0-30.0) sec Sodium 142 (137-145) mmol/L Potassium 3.9 (3.5-5.1) mmol/L Chloride 104 (98-107) mmol/L Carbon Dioxide 29 (22-30) mmol/L Anion Gap 9 mmol/L BUN 14 (7-17) mg/dL Creatinine 0.84 (0.52-1.04) mg/dL Est GFR (CKD-EPI)AfAm 81 (>60 ml/min/1.73 sqM) Est GFR (CKD-EPI)NonAf 71 (>60 ml/min/1.73 sqM) Glucose 178 H (74-99) mg/dL Plasma Lactic Acid Don (0.7-2.0) mmol/L Calcium 10.3 H (8.4-10.2) mg/dL Magnesium 1.9 (1.6-2.3) mg/dL Total Bilirubin 1.1 (0.2-1.3) mg/dL AST 22 (14-36) U/L ALT 12 (4-34) U/L Alkaline Phosphatase 108 (38-126) U/L Total Protein 7.4 (6.3-8.2) g/dL Albumin 4.4 (3.5-5.0) g/dL Urine Color Urine Appearance (Clear) Urine pH (5.0-8.0) Ur Specific [place] (1.001-1.035) Urine Protein (Negative) Urine Glucose (UA) (Negative) Urine Ketones (Negative) Urine Blood (Negative) Urine Nitrite (Negative) Urine Bilirubin (Negative) Urine Urobilinogen (<2.0) mg/dL Ur Leukocyte Esterase (Negative) Urine WBC (0-5) /hpf Ur Squamous Epith Cells (0-4) /hpf Calcium Oxalate Crystal (None) /hpf Urine Bacteria (None) /hpf Hyaline Casts (0-2) /lpf Urine Mucus (None) /hpf Blood Type Blood Type Recheck Bld Type Recheck Status Antibody Screen Spec Expiration Date 03/30/24 03/30/24 03/30/24 Range/Units 10:56 10:56 10:56 WBC (3.8-10.6) k/uL RBC (3.80-5.40) m/uL Hgb (11.4-16.0) gm/dL Hct (34.0-46.0) % MCV (80.0-100.0) fL MCH (25.0-35.0) pg MCHC (31.0-37.0) g/dL RDW (11.5-15.5) % Plt Count (150-450) k/uL MPV Neutrophils % Lymphocytes % Monocytes % Eosinophils % Basophils % Neutrophils # Lymphocytes # Monocytes # Eosinophils # Basophils # PT (10.0-12.5) sec INR (<1.2) APTT (22.0-30.0) sec Sodium (137-145) mmol/L Potassium (3.5-5.1) mmol/L Chloride (98-107) mmol/L Carbon Dioxide (22-30) mmol/L Anion Gap mmol/L BUN (7-17) mg/dL Creatinine (0.52-1.04) mg/dL Est GFR (CKD-EPI)AfAm (>60 ml/min/1.73 sqM) Est GFR (CKD-EPI)NonAf (>60 ml/min/1.73 sqM) Glucose (74-99) mg/dL Plasma Lactic Acid Don 2.0 (0.7-2.0) mmol/L Calcium (8.4-10.2) mg/dL Magnesium (1.6-2.3) mg/dL Total Bilirubin (0.2-1.3) mg/dL AST (14-36) U/L ALT (4-34) U/L Alkaline Phosphatase (38-126) U/L Total Protein (6.3-8.2) g/dL Albumin (3.5-5.0) g/dL Urine Color Yellow Urine Appearance Cloudy H (Clear) Urine pH 5.5 (5.0-8.0) Ur Specific [place] 1.033 (1.001-1.035) Urine Protein 1+ H (Negative) Urine Glucose (UA) 3+ H (Negative) Urine Ketones Trace H (Negative) Urine Blood Negative (Negative) Urine Nitrite Negative (Negative) Urine Bilirubin Negative (Negative) Urine Urobilinogen <2.0 (<2.0) mg/dL Ur Leukocyte Esterase Small H (Negative) Urine WBC 15 H (0-5) /hpf Ur Squamous Epith Cells 3 (0-4) /hpf Calcium Oxalate Crystal Few H (None) /hpf Urine Bacteria Rare H (None) /hpf Hyaline Casts 28 H (0-2) /lpf Urine Mucus Many H (None) /hpf Blood Type A Positive Blood Type Recheck A Pos Bld Type Recheck Status No Antibody Screen NEGATIVE Spec Expiration Date 04/02/20242355 - Radiology Data Radiology results: report reviewed, image reviewed Disposition Clinical Impression: Diverticulitis Disposition: HOME SELF-CARE Instructions (If sedation given, give patient instructions): Diverticulitis (ED), Rectal Bleeding (ED), Diverticulitis Diet (ED) Additional Instructions: Return to the emergency department with any new, worsening, or concerning symptoms. Take the antibiotic as prescribed for 10 days. Follow up with your primary care provider in 1-2 days. Prescriptions: Amoxic-Pot Clav 875-125Mg [Augmentin 875-125] 1 tab PO BID 10 Days #20 tab Is patient prescribed a controlled substance at d/c from ED?: No Referrals: Murali Umana MD [Primary Care Provider] - 1-2 days Time of Disposition: 14:16
[2024-03-30 11:29] LABS: Appearance,Urine Cloudy (Clear); Bacteria,Urine Rare /hpf; Bilirubin,Urine Negative (Negative); Blood,Urine Negative (Negative); Calcium Oxalate Crystals,Urine Few /hpf; Color,Urine Yellow; Glucose,Urine (UA) 3+ (Negative); Hyaline Casts,Urine 28 /lpf (0-2); Ketones,Urine Trace (Negative); Leukocyte Esterase,Urine Small (Negative); Mucus,Urine Many /hpf; Nitrite,Urine Negative (Negative); PH, Urine 5.5 (5.0-8.0); Protein,Urine 1+ (Negative); Specific Gravity,Urine 1.033 (1.001-1.035); Squamous Epithelial Cell,Urine 3 /hpf (0-4); Urobilinogen,Urine <2.0 mg/dL (<2.0); WBC,Urine 15 /hpf (0-5)
[2024-03-30 11:46] LABS: ALT 12 U/L (4-34); African American GFR (CKD) 81 (>60 ml/min/1.73 sqM); Albumin 4.4 g/dL (3.5-5.0); Anion Gap 9 mmol/L; Blood Urea Nitrogen 14 mg/dL (7-17); Calcium 10.3 mg/dL (8.4-10.2); Carbon Dioxide 29 mmol/L (22-30); Chloride 104 mmol/L (98-107); Glucose 178 mg/dL (74-99); Non-African American GFR(CKD) 71 (>60 ml/min/1.73 sqM); Sodium 142 mmol/L (137-145); Total Bilirubin 1.1 mg/dL (0.2-1.3); Total Protein 7.4 g/dL (6.3-8.2)
[2024-03-30 11:48] LABS: Potassium 3.9 mmol/L (3.5-5.1)
[2024-03-30 11:49] LABS: AST 22 U/L (14-36); Alkaline Phosphatase 108 U/L (38-126); Magnesium 1.9 mg/dL (1.6-2.3)
[2024-03-30 11:59] LABS: INR 0.9 (<1.2); Prothrombin Time 9.8 sec (10.0-12.5)
[2024-03-30 13:12] VITALS: BP 142/90; PULSE 85
--- NOTE | 2024-03-30 13:47 | CT ---
EXAMINATION TYPE: CT abdomen pelvis w con CT DLP: 779.5 mGycm, Automated exposure control for dose reduction was used. DATE OF EXAM: 03/30/2024 1:36 PM COMPARISON: CT abdomen pelvis most recent from 11/06/2020 . CLINICAL INDICATION:Female, 68 years old with history of Rectal bleeding; Rectal bleeding TECHNIQUE: Standard CT of the abdomen and pelvis following the administration of 100 cc of Isovue 3 00 IV contrast material. Coronal and sagittal reformats were performed. FINDINGS: LOWER CHEST: Linear atelectasis within the right lower lobe. Small anterior pericardial effusion. ABDOMEN LIVER: Unremarkable GALLBLADDER AND BILE DUCTS: Unremarkable. PANCREAS: Unremarkable. SPLEEN: Enlarged. Few subcentimeter hypodensities which are too small to characterize but statistical ly benign. ADRENAL GLANDS: Unremarkable. KIDNEYS AND URETERS: No evidence of hydronephrosis or renal calculus. The kidneys enhance symmetrical ly. Contrast is demonstrated within both collecting systems on the delayed phase. Retroaortic left re nal vein. PELVIS BLADDER: Incompletely distended but grossly unremarkable. REPRODUCTIVE: The uterus is surgically absent. ABDOMEN & PELVIS STOMACH AND BOWEL: Gastric lap band device identified . Frontal wall thickening of the sigmoid colon with mild surrounding stranding. No strong fluid collection. No hyperdense material identified within the visualized bowel. A few sigmoid diverticula identified. The appendix is not identified however n o significant inflammatory changes within the right lower quadrant. No evidence of bowel obstruction. PERITONEUM: No evidence of pneumoperitoneum. Trace free fluid in the pelvis. VASCULATURE: Mild atherosclerotic calcifications are present throughout the abdominal aorta and its b ranches. No evidence of aortic aneurysm. Pelvic phleboliths. MUSCULOSKELETAL: No acute osseous abnormalities. Postsurgical changes from posterior fusion with lami nectomy involving T10-T11. Multilevel degenerative disc disease. Grade 1 anterolisthesis of L5 on S1 without evidence of pars defects. LYMPH NODES: No evidence for lymphadenopathy. SOFT TISSUE/ABDOMINAL WALL: Gastric lap band device reservoir into the left midline anterior epigastr ic abdominal wall. IMPRESSION: Inflammatory changes and wall thickening along the sigmoid colon with diverticula identified. Represe nts either acute colitis and/or uncomplicated diverticulitis from a likely infectious/inflammatory et iology. [facility], , 03/30/2024 1:45 PM
== END 2024-03-30 19:18 | disposition home or self-care (01) ==
LOC: EC 10:22
CPT/HCPCS: 36415; 74177; 80053; 81001; 83605; 83735; 85025; 85610; 85730; 86850; 86900; 86901; 99285

== ENCOUNTER 2024-04-16 09:08 | Emergency (ER) | payer MEDICARE, OTHER ==
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
[2024-04-16] MEDS: KETOROLAC 15 MG/ML 1 ML VIAL IVP STA ×2 (11:58→16:46)
--- NOTE | 2024-04-16 11:58 | XR ---
EXAM TYPE: LUMBAR SPINE X RAY SERIES COMPARISON: NONE HISTORY: Pain TECHNIQUE: 4 views are submitted. FINDINGS: Alignment is anatomic. The pedicles are intact. The transverse processes are intact. There is post surgical changes. Surgical shane are noted. There is multilevel degenerative disc disease. Previous lap band procedure suggested. Grade 1 anterolisthesis L3-4, L4-5 and L5-S1. Vascular calcifications noted. Severe degenerative disc disease involving the lower thoracic spine to the level of L2. Inters pinous joint arthropathy noted. IMPRESSION: 1. Postsurgical changes involving the vertebral column at the thoracolumbar junction and mid to lower lumbar spine. Grade 1 anterolisthesis at multiple levels. 2. Diffuse osteopenia and multilevel severe degenerative disc disease. [facility], , 04/16/2024 11:55 AM
[2024-04-16 12:19] LABS: Basophils % (A) 0 %; Eosinophils # (A) 0.2 k/uL (0-0.7); Eosinophils % (A) 3 %; HCT 31.2 % (34.0-46.0); Hypochromasia Moderate; Lymphocytes # (A) 1.7 k/uL (1.0-4.8); Lymphocytes % (A) 19 %; MCH 28.6 pg (25.0-35.0); MCHC 31.8 g/dL (31.0-37.0); MCV 89.9 fL (80.0-100.0); Mean Platelet Volume 7.8; Monocytes # (A) 0.4 k/uL (0-1.0); Monocytes % (A) 5 %; Neutrophils # (A) 6.5 k/uL (1.3-7.7); Neutrophils % (A) 72 %; Platelet Count 240 k/uL (150-450); RBC 3.47 m/uL (3.80-5.40); RDW 14.3 % (11.5-15.5); WBC 9.1 k/uL (3.8-10.6)
[2024-04-16 12:28] LABS: HGB 9.9 gm/dL (11.4-16.0)
[2024-04-16 12:51] LABS: ALT 22 U/L (4-34); AST 34 U/L (14-36); African American GFR (CKD) >90 (>60 ml/min/1.73 sqM); Albumin 3.2 g/dL (3.5-5.0); Alkaline Phosphatase 88 U/L (38-126); Anion Gap 0 mmol/L; Blood Urea Nitrogen 8 mg/dL (7-17); Calcium 8.4 mg/dL (8.4-10.2); Carbon Dioxide 33 mmol/L (22-30); Chloride 105 mmol/L (98-107); Glucose 113 mg/dL (74-99); Non-African American GFR(CKD) >90 (>60 ml/min/1.73 sqM); Potassium 4.2 mmol/L (3.5-5.1); Sodium 138 mmol/L (137-145); Total Bilirubin 0.8 mg/dL (0.2-1.3); Total Protein 5.7 g/dL (6.3-8.2)
[2024-04-16 17:55] VITALS: BP 127/77; PULSE 79; RESP 16; TEMP 98.9
== END 2024-04-16 17:55 | disposition home or self-care (01) ==
LOC: EC 09:08
CPT/HCPCS: 36415; 72110; 80053; 83605; 85025; 96374; 96376; 99283